=== PATIENT | female | born 1950 | race Caucasian/White ===

== ENCOUNTER → 2017-03-06 | Outpatient (CLI) | payer MEDICARE, OTHER ==
[2017-03-06 09:53] LABS: Bilirubin, Delta 0.5 mg/dL (0.0-0.2); Total Protein 7.2 g/dL (6.3-8.2)
[2017-03-06 12:50] LABS: Hemoglobin A1C 6.4 % (4.2-6.1)
== END | disposition home or self-care (01) ==
LOC: LABWHC1 08:59
PROVIDERS: ATTEND Internal Medicine
DX: E78.5 Hyperlipidemia, unspecified (principal)
CPT/HCPCS: 36415; 80076; 82947; 83036

== ENCOUNTER → 2017-03-14 | Outpatient (CLI) | payer MEDICARE, OTHER ==
[2017-03-15 14:36] LABS: Gliadin AB IgA, Deaminated 8 UNITS (<20); Gliadin AB IgG, Deaminated 2 UNITS (<20)
== END | disposition home or self-care (01) ==
LOC: LABWHC1 11:02
PROVIDERS: ATTEND Internal Medicine
DX: K52.9 Noninfective gastroenteritis and colitis, unspecified (principal)
CPT/HCPCS: 36415; 83516

== ENCOUNTER → 2017-06-21 | Outpatient (CLI) | payer MEDICARE, OTHER ==
[2017-06-21 11:29] LABS: Basophils # (A) 0.1 k/uL (0-0.2); Basophils % (A) 1 %; CH 30.1; CHCM 35.1; Eosinophils # (A) 0.2 k/uL (0-0.7); Eosinophils % (A) 2 %; HDW 2.97; HGB 13.8 gm/dL (11.4-16.0); Luc % (Auto) 1; Lymphocytes % (A) 25 %; MCH 28.9 pg (25.0-35.0); MCHC 33.5 g/dL (31.0-37.0); MCV 86.3 fL (80.0-100.0); Mean Platelet Volume 7.1; Monocytes # (A) 0.6 k/uL (0-1.0); Monocytes % (A) 5 %; Neutrophils # (A) 8.1 k/uL (1.3-7.7); Neutrophils % (A) 67 %; RBC 4.76 m/uL (3.80-5.40); RDW 14.6 % (11.5-15.5); WBC 12.1 k/uL (3.8-10.6); WBC (Perox) 11.52
[2017-06-21 11:55] LABS: Calcium 9.7 mg/dL (8.4-10.2); Potassium 3.9 mmol/L (3.5-5.1); Total Bilirubin 0.9 mg/dL (0.2-1.3)
[2017-06-21 12:44] LABS: Hemoglobin A1C 6.6 % (4.2-6.1)
== END | disposition home or self-care (01) ==
LOC: LABWHC1 11:08
PROVIDERS: ATTEND Family Medicine
DX: I10 Essential (primary) hypertension (principal); E11.9 Type 2 diabetes mellitus without complications; Z79.899 Other long term (current) drug therapy
CPT/HCPCS: 36415; 80053; 80061; 83036; 85025

== ENCOUNTER → 2017-10-18 | Outpatient (CLI) | payer MEDICARE, OTHER ==
--- NOTE | 2017-10-19 11:04 | MM ---
Reason for exam: screening (asymptomatic). Last mammogram was performed 3 years and 9 months ago. History: Patient is postmenopausal. Family history of breast cancer in grandmother. Physical Findings: A clinical breast exam by your physician is recommended on an annual basis and results should be correlated with mammographic findings. MG 3D Screening Mammo W/Cad Bilateral CC and MLO view(s) were taken. Prior study comparison: January 20, 2014, mammogram. There are scattered fibroglandular densities. There is chronic nodularity bilaterally. No significant changes when compared with prior studies. ASSESSMENT: Negative, BI-RAD 1 RECOMMENDATION: Routine screening mammogram of both breasts in 1 year.
== END | disposition home or self-care (01) ==
LOC: RADMAMWWP 13:05
PROVIDERS: ATTEND Family Medicine
DX: Z12.31 Encounter for screening mammogram for malignant neoplasm of breast (principal)
CPT/HCPCS: 77063; 77067

== ENCOUNTER → 2017-11-27 | Outpatient (CLI) | payer MEDICARE, OTHER ==
--- NOTE | 2017-11-27 11:02 | XR ---
EXAMINATION TYPE: XR chest 2V DATE OF EXAM: 11/27/2017 COMPARISON: 07/10/2015 HISTORY: 67-year-old female with cough TECHNIQUE: Frontal and lateral views FINDINGS: The cardiomediastinal silhouette, aorta, and pulmonary vasculature are within normal limits. Lungs an d pleural spaces are clear. Mild endplate spondylosis throughout the thoracic spine. Prior distal cla vicle resection on the left, stable. IMPRESSION: No acute cardiopulmonary process.
== END | disposition home or self-care (01) ==
LOC: RADXRMAIN 10:32
PROVIDERS: ATTEND Family Medicine
DX: R05 Cough (principal)
CPT/HCPCS: 71046

== ENCOUNTER → 2018-01-14 | Outpatient (CLI) | payer MEDICARE, OTHER ==
--- NOTE | 2018-01-14 16:26 | CT ---
EXAMINATION TYPE: CT chest wo con DATE OF EXAM: 01/14/2018 COMPARISON: Chest x-ray November 27, 2017 HISTORY: Sob x multiple months. Chronic bronchitis per order. CT DLP: 766 mGycm. Automated Exposure Control for Dose Reduction was Utilized. TECHNIQUE: CT scan of the thorax is performed without IV contrast. FINDINGS: LUNGS: The lungs are grossly clear, there is no concerning parenchymal mass or nodule identified. T here is no pleural effusion or pneumothorax seen. The tracheobronchial tree is patent. MEDIASTINUM: Lack of IV contrast is noted to limit evaluation for mediastinal and especially hilar ad enopathy. There are no definitive greater than 1 cm hilar or mediastinal lymph nodes. No cardiomega ly or pericardial effusion is seen. There is moderate coronary artery calcification is seen which is noted marker for coronary artery disease. OTHER: Cholecystectomy clips are present. Slight scoliotic curvature with moderate multilevel spurrin g in thoracic spine is noted. IMPRESSION: No significant acute or chronic pulmonary process.
== END | disposition home or self-care (01) ==
LOC: RADCTMAIN 15:58
PROVIDERS: ATTEND Family Medicine
DX: J42 Unspecified chronic bronchitis (principal)
CPT/HCPCS: 71250

== ENCOUNTER → 2018-01-28 | Outpatient (CLI) | payer MEDICARE, OTHER ==
[~2018-01-28] MED LIST: REGADENOSON 0.4 MG/5 ML SYRINGE IV ONE
--- NOTE | 2018-01-28 10:50 | EST ---
EXERCISE STRESS DATE OF SERVICE: January 28, 2018 PERFORMING PHYSICIAN: Ari Lara M.D., interventional radiologist. PROCEDURE PERFORMED: Lexiscan EKG of Lexiscan Cardiolite. AGE: 67 SEX: Female HT: 64 inches WT: 211 pounds PROTOCOL: Lexiscan Cardiolite HEART RATE REST: 78 BLOOD PRESSURE REST: 132/73 MAXIMUM HEART RATE ACHIEVED: 104 MAXIMUM BLOOD PRESSURE: 145/77 85% MPHR: 128 100% MPHR: 152 INDICATIONS: Abnormal EKG. STRESS DATA: Pretesting physical examination showed a heart rate of 78, pressure is 132/73 mmHg. Baseline EKG revealed sinus mechanism with RBBB. 0.4 mg of Lexiscan was given to the patient over 15 seconds per protocol. The max heart rate was 102 beats per minute and maximum pressure was 145/77 mmHg. Clinically the patient developed headache without any chest pain or discomfort and the EKG did not show any significant ST or T-wave abnormalities consistent with ischemia. CONCLUSION: 1. Nondiagnostic stress testing in response to Lexiscan. 2. Please follow up on the Cardiolite portion on separate report. MMODL / IJN: [id number] /
--- NOTE | 2018-01-28 11:34 | NM ---
EXAMINATION TYPE: NM stress lexiscan cardiolite DATE OF EXAM: 01/28/2018 COMPARISON: CT chest January 14, 2018 HISTORY: Coronary calcification, abnormal CT. History of hypertension, hypercholesteremia, diabetes, and family history of heart attack presents with abnormal EKG and difficulty breathing TECHNIQUE: After the intravenous administration of 9.97 mCi Tc 99m Sestamibi - Cardiolite resting SP ECT images acquired 54 minutes post injection. The patient received 0.4mg Lexiscan, 24.9 mCi Tc 99m Sestamibi - Stress images obtained [address] injection FINDINGS: Review of stress and rest SPECT images demonstrates no distinct perfusion abnormality. Gated analysi s shows normal wall motion with an estimated left ventricular ejection fraction of 64 %. IMPRESSION: No scintigraphic evidence for reversible ischemia.
== END ==
LOC: RADNMMAIN 08:06
PROVIDERS: ATTEND Family Medicine
DX: I25.84 Coronary atherosclerosis due to calcified coronary lesion (principal)
CPT/HCPCS: 93017; 78452; A9500; J2785

== ENCOUNTER → 2018-04-29 | Outpatient (CLI) | payer MEDICARE, OTHER ==
--- NOTE | 2018-04-29 15:15 | CT ---
EXAMINATION TYPE: CT cervical spine wo con DATE OF EXAM: 04/29/2018 COMPARISON: NONE HISTORY: Right side neck pain with bilateral arm pain CT DLP: 523.7 mGycm. Automated Exposure Control for Dose Reduction was Utilized. TECHNIQUE: CT scan of the cervical spine is obtained without contrast, axial images are obtained, sa gittal and coronal reformatted images are also reviewed. FINDINGS: Cervical spine is visualized in its entirety from C1 through upper thoracic levels, demonst rates satisfactory alignment without evidence of acute fracture or dislocation. Prevertebral soft ti ssue appears within normal limits. The C1-C2 articulation is within normal limits on the coronal sia ges. Vertebral body heights are maintained. There is mild disc space narrowing with calcified the C4-C5 le isabella. There is moderate disc space narrowing with mild to moderate anterior spurring C6-C7 level. Ther e is mild disc space narrowing C7-T1 level. Spinal canal is grossly preserved. Review of axial images shows uncovertebral facet degenerative changes right C2-C3 level without signi ficant neural foraminal narrowing. There is uncovertebral facet degenerative changes C3-C4 level with out significant neural foraminal narrowing. No large somewhat small in size . Visualized lung apices are clear. IMPRESSION: Findings as detailed above.
== END | disposition home or self-care (01) ==
LOC: RADCTMAIN 14:27
PROVIDERS: ATTEND Family Medicine
DX: M48.02 Spinal stenosis, cervical region (principal); M47.812 Spondylosis without myelopathy or radiculopathy, cervical region
CPT/HCPCS: 72125

== ENCOUNTER → 2018-07-24 | Outpatient (CLI) | payer MEDICARE, OTHER ==
--- NOTE | 2018-07-24 16:28 | XR ---
EXAMINATION TYPE: XR lumbosacral spine min 4V DATE OF EXAM: 07/24/2018 CLINICAL HISTORY: Chronic back pain TECHNIQUE: Frontal, lateral, and oblique images of the lumbar spine are obtained. COMPARISON: None FINDINGS: There are 5 lumbar type vertebral bodies identified. Mild multilevel degenerative changes of the lumbar spine are seen has multilevel facet arthropathy, endplate sclerosis and anterior osteo phytes. This results in at least mild bilateral neural foraminal narrowing at L4-L5. The lumbar spine shows satisfactory alignment without evidence of acute fracture or dislocation. Vertebral body heigh ts and disk space heights are within normal limits. Mild atherosclerosis is incidentally noted of the abdominal aorta. The overlying soft tissue appears unremarkable. IMPRESSION: No acute fracture or malalignment is seen in the lumbar spine. Mild multilevel degenerat sheryl change of the lumbar spine resulting in at least mild bilateral neural foraminal narrowing at L4- L5.
== END ==
LOC: RADXRMAIN 13:22
PROVIDERS: ATTEND Family Medicine
DX: M99.73 Connective tissue and disc stenosis of intervertebral foramina of lumbar region (principal); M47.816 Spondylosis without myelopathy or radiculopathy, lumbar region
CPT/HCPCS: 72110

== ENCOUNTER → 2018-08-13 | Outpatient (CLI) | payer MEDICARE, OTHER ==
[2018-08-13 13:45] LABS: Potassium 4.3 mmol/L (3.5-5.1)
--- NOTE | 2018-08-13 14:38 | XR ---
EXAMINATION TYPE: XR chest 2V DATE OF EXAM: 08/13/2018 COMPARISON: 11/27/2017 HISTORY: Dyspnea and cough TECHNIQUE: Frontal and lateral views of the chest are obtained. FINDINGS: There is no focal air space opacity, pleural effusion, or pneumothorax seen. The cardiac silhouette size is within normal limits. The osseous structures are intact. IMPRESSION: No acute cardiopulmonary process.
== END | disposition home or self-care (01) ==
LOC: RADXRMAIN 12:20
PROVIDERS: ATTEND Family Medicine
DX: Z53.9 Procedure and treatment not carried out, unspecified reason (principal)
CPT/HCPCS: 71046; 80051; 82565; 84520; 85379

== ENCOUNTER 2018-08-15 12:00 | Inpatient (IN) | payer MEDICARE, OTHER ==
[2018-08-15 14:27] LABS: Basophils # (A) 0.1 k/uL (0-0.2); Basophils % (A) 0 %; Eosinophils # (A) 0.1 k/uL (0-0.7); Eosinophils % (A) 1 %; HCT 40.1 % (34.0-46.0); HGB 13.4 gm/dL (11.4-16.0); Lymphocytes # (A) 2.5 k/uL (1.0-4.8); Lymphocytes % (A) 14 %; MCH 28.6 pg (25.0-35.0); MCHC 33.4 g/dL (31.0-37.0); MCV 85.6 fL (80.0-100.0); Mean Platelet Volume 6.9; Monocytes # (A) 1.1 k/uL (0-1.0); Monocytes % (A) 6 %; Neutrophils # (A) 14.5 k/uL (1.3-7.7); Neutrophils % (A) 79 %; Platelet Count 371 k/uL (150-450); RBC 4.68 m/uL (3.80-5.40); RDW 13.2 % (11.5-15.5); WBC 18.4 k/uL (3.8-10.6)
[2018-08-15 14:36] LABS: Albumin 4.2 g/dL (3.5-5.0); Phosphorus 4.4 mg/dL (2.5-4.5); Potassium 3.8 mmol/L (3.5-5.1); Total Bilirubin 0.8 mg/dL (0.2-1.3); Total Protein 7.3 g/dL (6.3-8.2)
[2018-08-15] MEDS: SODIUM CHLORIDE 0.9% 1,000 ML IV SCH (15:29)
[2018-08-15 16:03] LABS: Appearance,Urine Cloudy (Clear); Bilirubin,Urine Negative (Negative); Blood,Urine Negative (Negative); Color,Urine Yellow; Glucose,Urine (UA) 1+ (Negative); Ketones,Urine Negative (Negative); Leukocyte Esterase,Urine Moderate (Negative); Mucus,Urine Rare /hpf; Nitrite,Urine Negative (Negative); PH, Urine 5.5 (5.0-8.0); Protein,Urine Trace (Negative); RBC,Urine 3 /hpf (0-5); Squamous Epithelial Cell,Urine 3 /hpf (0-4); Urobilinogen,Urine <2.0 mg/dL (<2.0); WBC,Urine 17 /hpf (0-5)
[2018-08-15 16:52] LABS: Glucose,Whole Blood 149 mg/dL (75-99)
[2018-08-15] MEDS: glipiZIDE 10 MG TAB PO SCH (17:03)
[2018-08-15 20:24] LABS: Glucose,Whole Blood 226 mg/dL (75-99)
[2018-08-15 20:56] LABS: Hemoglobin A1C 7.7 % (4.0-6.0)
[2018-08-15] MEDS: POTASSIUM CHLORIDE ER 20 MEQ TAB.ER PO SCH (21:18)
[2018-08-15] MEDS: ATENOLOL 25 MG TAB PO SCH (21:18)
--- NOTE | 2018-08-15 21:22 | XR ---
EXAMINATION TYPE: XR chest 2V DATE OF EXAM: 08/15/2018 COMPARISON: 08/13/2018 HISTORY: Short of breath TECHNIQUE: Frontal and lateral views of the chest are obtained. FINDINGS: Heart and mediastinum are normal. Lungs are clear. Diaphragm is normal. Bony thorax appear s normal. Pulmonary vascularity is normal. IMPRESSION: No active cardiopulmonary disease. No change.
[2018-08-15 23:45] LABS: Appearance,Urine Clear (Clear); Bacteria,Urine Rare /hpf; Bilirubin,Urine Negative (Negative); Blood,Urine Negative (Negative); Color,Urine Light Yellow; Glucose,Urine (UA) Negative (Negative); Ketones,Urine Negative (Negative); Leukocyte Esterase,Urine Moderate (Negative); Mucus,Urine Rare /hpf; Nitrite,Urine Negative (Negative); Protein,Urine Negative (Negative); RBC,Urine 3 /hpf (0-5); Squamous Epithelial Cell,Urine 2 /hpf (0-4); Urobilinogen,Urine <2.0 mg/dL (<2.0)
[2018-08-16] MEDS: LEVOTHYROXINE 125 MCG TAB PO SCH (06:00)
[2018-08-16] MEDS: SODIUM CHLORIDE 0.9% 1,000 ML IV SCH ×3 (06:01→21:56)
[2018-08-16 07:23] LABS: Glucose,Whole Blood 134 mg/dL (75-99)
[2018-08-16] MEDS: VILANTER INHALATION SCH (07:29)
[2018-08-16] MEDS: FLUTICASONE INHALATION SCH (07:29)
[2018-08-16] MEDS: UMECLIDIN INHALATION SCH (07:29)
[2018-08-16] MEDS: ASPIRIN 81 MG PO SCH (07:39)
[2018-08-16] MEDS: ATENOLOL 25 MG TAB PO SCH ×2 (07:39→21:56)
[2018-08-16] MEDS: glipiZIDE 10 MG TAB PO SCH ×2 (07:39→17:50)
[2018-08-16] MEDS: ATORVASTATIN 40 MG TAB PO SCH (07:39)
[2018-08-16] MEDS: POTASSIUM CHLORIDE ER 20 MEQ TAB.ER PO SCH ×2 (07:40→21:56)
[2018-08-16] MEDS: CLOTRIMAZOLE 1% CREAM 15 GM TUBE TOPICAL SCH (07:40)
[2018-08-16 08:31] LABS: Basophils # (A) 0.1 k/uL (0-0.2); Basophils % (A) 0 %; Eosinophils # (A) 0.1 k/uL (0-0.7); Eosinophils % (A) 1 %; HCT 33.5 % (34.0-46.0); Lymphocytes # (A) 2.8 k/uL (1.0-4.8); Lymphocytes % (A) 20 %; MCHC 32.8 g/dL (31.0-37.0); MCV 85.3 fL (80.0-100.0); Mean Platelet Volume 6.9; Monocytes # (A) 0.8 k/uL (0-1.0); Monocytes % (A) 5 %; Neutrophils # (A) 10.5 k/uL (1.3-7.7); Neutrophils % (A) 73 %; Platelet Count 298 k/uL (150-450); RBC 3.93 m/uL (3.80-5.40); RDW 12.9 % (11.5-15.5); WBC 14.4 k/uL (3.8-10.6)
[2018-08-16 08:58] LABS: Albumin 3.2 g/dL (3.5-5.0); Calcium 9.1 mg/dL (8.4-10.2); Potassium 3.5 mmol/L (3.5-5.1); Total Bilirubin 0.6 mg/dL (0.2-1.3)
[2018-08-16] MEDS ORDERED: TRIAMTERENE-HCTZ 37.5-25MG 1 EACH CAP PO SCH (09:00)
[2018-08-16] MEDS ORDERED: LOSARTAN 50 MG TAB PO SCH (09:00)
--- NOTE | 2018-08-16 10:05 | P.NPCON ---
History of Present Illness - Reason for Consult acute renal failure - History of Present Illness Reason for consultation: Acute kidney injury History of present illness: Patient is a 68-year-old female seen in renal consultation for acute kidney injury. Patient had blood work done on 08/13/2018 which revealed creatinine of 4.48. She was advised by her primary care physician to go to the hospital for further care. Creatinine yesterday was 4.09 and is down to 3.62 today. Creatinine is June 2017 was 1.36 and one in July 2015. Patient denies any prior history of kidney disease. She does have history of diabetes mellitus and takes metformin. She denies use of NSAIDs. She does have history of hypertension and takes lisinopril. Blood pressure this admission has been pretty well controlled. Systolic blood pressure has been in the range of 108- 124. She admits to good urine output. No hematuria or dysuria. Patient states her mother was on dialysis due to diabetic kidney disease. States she's been feeling nauseous the last few days. Oral intake is fair. Denies vomiting. Patient states she does have loose bowel movements which is regular for her due to history of ulcerative colitis. Vital signs are stable. General: The patient appeared well nourished and normally developed. HEENT: Head exam is unremarkable. Neck is without jugular venous distension. LUNGS: Lungs are clear to auscultation and percussion. Breath sounds decreased. HEART: Rate and Rhythm are regular. First and second heart sounds normal. No murmurs, rubs or gallops. ABDOMEN: Abdominal exam reveals normal bowel sounds. Non-tender and non- distended. No evidence of peritonitis. EXTREMITITES: No clubbing, cyanosis, or edema. Past Medical History Past Medical History: Diabetes Mellitus, Hyperlipidemia, Hypertension, Thyroid Disorder Additional Past Medical History / Comment(s): Pt states for past month she has not felt well- multiple problems-vertigo, back pain, R shoulder pain and decreased ROM, voice change. Other hx: NIDDM type II-recently taken off metformin and stayed on glipizide, neuropathy bilateral feet, ulcerative colitis , frequent diarrhea, past R rotator cuff tear, occasional back pain with sciatica. History of Any Multi-Drug Resistant Organisms: None Reported Additional Past Surgical History / Comment(s): Lap fidel, R wrist ganglion cystectomy, L shoulder bone removed, colonoscopies. Past Anesthesia/Blood Transfusion Reactions: No Reported Reaction, Motion Sickness Smoking Status: Never smoker - Past Family History Mother Family Medical History: Renal Disease Additional Family Medical History / Comment(s): Mother of renal failure. Father Family Medical History: Myocardial Infarction (ME) Additional Family Medical History / Comment(s): Father of a ME at the age of 75 yrs. He had his first ME about age 65yrs. Medications and Allergies Home Medications Medication Instructions Recorded Confirmed Type Aspirin 81 mg PO DAILY 07/10/15 08/15/18 History Levothyroxine Sodium [Synthroid] 125 mcg PO DAILY 07/10/15 08/15/18 History Losartan Potassium [Cozaar] 100 mg PO DAILY 07/10/15 08/15/18 History Potassium Chloride [Klor-Con 20] 20 meq PO BID 07/10/15 08/15/18 History Triamterene-Hctz 37.5-25Mg 1 cap PO DAILY 07/10/15 08/15/18 History [Dyazide 37.5-25 Capsule] glipiZIDE [Glipizide] 10 mg PO BID-W/MEALS 07/10/15 08/15/18 History metFORMIN HCL [metFORMIN HCL ER] 1,000 mg PO BID 07/10/15 08/15/18 History Atenolol [Tenormin] 25 mg PO BID 08/15/18 08/15/18 History Atorvastatin [Lipitor] 40 mg PO DAILY 08/15/18 08/15/18 History Clotrimazole [Lotrimin AF] 1 applic TOPICAL DAILY MDD UNDER 08/15/18 08/15/18 History BREAST Fluticasone/Umeclidin/Vilanter 1 puff INHALATION RT-DAILY 08/15/18 08/15/18 History [Trelegy Ellipta 100-62.5-25] Meclizine [Antivert] 12.5 mg PO PRN 08/15/18 History Mirabegron [Myrbetriq] 50 mg PO Q48H 08/15/18 08/15/18 History Allergies Allergy/AdvReac Type Severity Reaction Status Date / Time sulfamethoxazole Allergy Unknown Verified 08/15/18 13:45 [From Bactrim] trimethoprim [From Bactrim] Allergy Unknown Verified 08/15/18 13:45 ibuprofen [From Motrin] AdvReac Swelling Verified 08/15/18 13:45 Physical Exam Vitals: Vital Signs Temp Pulse Resp BP Pulse Ox 08/16/18 05:49 97.9 F 83 18 114/72 98 08/15/18 22:52 98.9 F 99 18 108/57 97 08/15/18 21:02 124/65 08/15/18 17:30 14 08/15/18 14:31 97.5 F L 87 16 123/65 98 08/15/18 13:00 97.9 F 98 16 109/71 97 Intake and Output 08/15/18 08/16/18 08/16/18 22:59 06:59 14:59 Other: Voiding Method Toilet Toilet # Voids 2 3 Results - Lab Results Most recent lab results Calcium 9.1 mg/dL (8.4-10.2) 08/16/18 07:54 Phosphorus 4.4 mg/dL (2.5-4.5) 08/15/18 14:13 08/16/18 07:54 08/16/18 07:54 Assessment and Plan Plan: Assessment: 1. Nonoliguric acute kidney injury mostly prerenal due to hypovolemia from diuresis and further worsened with the use of losartan. Patient was also taking metformin. Renal function is improving with creatinine down to 3.62 today. Urinalysis is quite benign. 2. Diabetes. 3. Benign hypertension. Controlled. 4. Metabolic acidosis secondary to acute kidney injury and IV fluids. Plan: Maintain normal saline at 100 mL an hour. Check renal ultrasound. Avoid nephrotoxins. Continue to hold diuretics, metformin and losartan for now. Encouraged oral intake. Repeat electrolytes in the morning. Add oral sodium bicarbonate. Thank you for the consultation. I will continue to follow the patient with you during her hospital stay.
--- NOTE | 2018-08-16 10:29 | US ---
EXAMINATION TYPE: US abdomen complete DATE OF EXAM: 08/16/2018 COMPARISON: NONE CLINICAL HISTORY: elevated kidney labs . layo, cholecystectomy EXAM MEASUREMENTS: Liver Length: 15.1 cm Gallbladder Wall: Surgically absent CBD: 0.5 cm Spleen: 12.6 cm Right Kidney: 11.9 x 5.9 x 5.2 cm Left Kidney: 10.8 x 4.4 x 5.4 cm *bowel gas obscures imaging Pancreas: limited views appear wnl Liver: intercostal views, difficult to penetrate Gallbladder: Surgically absent Evidence for sonographic Hernandez's sign: no CBD: wnl Spleen: wnl Right Kidney: wnl Left Kidney: wnl Upper IVC: wnl Abd Aorta: limited views appear wnl The intrahepatic portion of the IVC and proximal abdominal aorta are within normal limits. Common bile duct is unremarkable. The visualized portions of the pancreas are homogenous. The spleen is un remarkable. Kidneys are symmetric and free of hydronephrosis. No renal lesions are seen. IMPRESSION: 1. Fatty hepatic infiltration.
[2018-08-16 10:48] LABS: T4, Free (Free Thyroxine) 2.01 ng/dL (0.78-2.19)
[2018-08-16 10:55] VITALS: BMI 34.1
[2018-08-16 12:39] LABS: Glucose,Whole Blood 77 mg/dL (75-99)
[2018-08-16 17:33] LABS: Glucose,Whole Blood 123 mg/dL (75-99)
--- NOTE | 2018-08-16 20:01 | HP ---
HISTORY AND PHYSICAL SUBJECTIVE: A 68-year-old white female admitted with weakness, lethargy, worsening renal function with acute renal failure. HISTORY OF PRESENT ILLNESS: She is diabetic, obese, diabetic, hypertension, admitted with renal failure with creatinine going from 2 up to mid 4s in a 1 month period of time. She was admitted to the hospital due to acute renal failure. She has been weak, lethargic with muscle aches and myalgias. HOME MEDICATIONS: Takes aspirin 81 mg daily, Tenormin 25 b.i.d., Lipitor 40 daily. She is on Rocephin for UTI a 1000 daily. Lotrimin topically daily, Trilogy Ellipta 1 puff daily, Glucotrol 10 mg b.i.d., Synthroid 125 mcg daily, Myrbetriq 50 mg q.48 hours. K-Dur 20 mEq b.i.d. REVIEW OF SYSTEMS: Fourteen point review of systems negative except for mentioned in HPI. Creatinine was 4.4 on admission. White count of 14.4. CARDIOVASCULAR: S1, S2. LUNGS: Scattered wheeze. HEMATOLOGY: Negative Homans. GI: Soft. PSYCH: Fair mood and affect. ASSESSMENT: 1. Acute renal failure. 2. Diabetes mellitus. 3. Hypertension. 4. Obesity. 5. Dehydration secondary to possible ulcerative colitis. 6. Hypothyroidism. 7. Nonoliguric acute kidney injury. Diaphoresis, losartan, metformin discontinued. Creatinine is improved with fluids. Ultrasound. Please see added oral sodium bicarbonate. Please see further orders. MMODL / IJN: [id number] /
[2018-08-16 21:28] LABS: Glucose,Whole Blood 183 mg/dL (75-99)
[2018-08-17] MEDS: SODIUM CHLORIDE 0.9% 1,000 ML IV SCH ×2 (05:30→18:35)
[2018-08-17] MEDS: LEVOTHYROXINE 125 MCG TAB PO SCH (05:31)
[2018-08-17 07:08] LABS: Glucose,Whole Blood 110 mg/dL (75-99)
--- NOTE | 2018-08-17 08:13 | P.PN ---
Subjective Patient is seen in follow-up for acute kidney injury. Patient's creatinine was elevated at 4.45 as of August 13 and she was sent to the hospital for acute kidney injury. She is currently maintained on IV fluids. Creatinine was down to 3.6 to as of yesterday. She's feels well today. Oral intake is good. No vomiting or diarrhea. Admits to good urine output. Vital signs are stable. General: The patient appeared well nourished and normally developed. HEENT: Head exam is unremarkable. Neck is without jugular venous distension. LUNGS: Lungs are clear to auscultation and percussion. Breath sounds decreased. HEART: Rate and Rhythm are regular. First and second heart sounds normal. No murmurs, rubs or gallops. ABDOMEN: Abdominal exam reveals normal bowel sounds. Non-tender and non- distended. No evidence of peritonitis. EXTREMITITES: No clubbing, cyanosis, or edema. Objective - Vital Signs Vital signs: Vital Signs Temp 98.8 F 08/17/18 06:15 Pulse 88 08/17/18 06:15 Resp 20 08/17/18 06:15 BP 118/59 08/17/18 06:15 Pulse Ox 95 08/17/18 06:15 Intake & Output 08/16/18 08/17/18 08/17/18 18:59 06:59 18:59 Intake Total 100 Balance 100 Weight 90.265 kg Intake: Oral 100 Other: Voiding Method Toilet Toilet # Voids 2 1 - Labs CBC & Chem 7: 08/16/18 07:54 08/16/18 07:54 Labs: Abnormal Lab Results - Last 24 Hours (Table) 08/16/18 08/16/18 08/16/18 Range/Units 07:54 07:54 17:16 WBC 14.4 H (3.8-10.6) k/uL Hgb 11.0 L (11.4-16.0) gm/dL Hct 33.5 L (34.0-46.0) % Neutrophils # 10.5 H (1.3-7.7) k/uL Chloride 111 H (98-107) mmol/L Carbon Dioxide 18 L (22-30) mmol/L BUN 62 H (7-17) mg/dL Creatinine 3.62 H (0.52-1.04) mg/dL Glucose 131 H (74-99) mg/dL POC Glucose (mg/dL) 123 H (75-99) mg/dL Total Protein 6.0 L (6.3-8.2) g/dL Albumin 3.2 L (3.5-5.0) g/dL TSH 0.371 L (0.465-4.680) mIU/L 08/16/18 08/17/18 Range/Units 21:24 07:04 WBC (3.8-10.6) k/uL Hgb (11.4-16.0) gm/dL Hct (34.0-46.0) % Neutrophils # (1.3-7.7) k/uL Chloride (98-107) mmol/L Carbon Dioxide (22-30) mmol/L BUN (7-17) mg/dL Creatinine (0.52-1.04) mg/dL Glucose (74-99) mg/dL POC Glucose (mg/dL) 183 H 110 H (75-99) mg/dL Total Protein (6.3-8.2) g/dL Albumin (3.5-5.0) g/dL TSH (0.465-4.680) mIU/L Microbiology - Last 24 Hours (Table) 08/15/18 13:48 Urine Culture - Final Urine,Voided Assessment and Plan Plan: Assessment: 1. Nonoliguric acute kidney injury mostly prerenal due to hypovolemia from diuresis and further worsened with the use of losartan. Patient was also taking metformin. Renal function is improving with creatinine down to 3.62 as of yesterday. Urinalysis is quite benign. No evidence of hydronephrosis noted on renal ultrasound. 2. Diabetes. 3. Benign hypertension. Controlled. 4. Metabolic acidosis secondary to acute kidney injury and IV fluids. Plan: Maintain normal saline at 100 mL an hour. Avoid nephrotoxins. Continue to hold diuretics, metformin and losartan for now. Encouraged oral intake. Repeat electrolytes in the morning. Maintain oral sodium bicarbonate.
[2018-08-17] MEDS ORDERED: CYCLOBENZAPRINE 5 MG TAB PO STA (08:21)
[2018-08-17] MEDS: ATORVASTATIN 40 MG TAB PO SCH (08:31)
[2018-08-17] MEDS: ASPIRIN 81 MG PO SCH (08:31)
[2018-08-17] MEDS: ATENOLOL 25 MG TAB PO SCH ×2 (08:31→21:22)
[2018-08-17] MEDS: POTASSIUM CHLORIDE ER 20 MEQ TAB.ER PO SCH ×2 (08:31→21:22)
[2018-08-17] MEDS: glipiZIDE 10 MG TAB PO SCH ×2 (08:31→18:34)
[2018-08-17] MEDS: Mirabegron [Myrbetriq] 50 MG PO SCH (08:32)
[2018-08-17] MEDS ORDERED: SODIUM BICARBONATE TAB 650 MG TAB PO SCH (09:00)
[2018-08-17 10:34] LABS: Basophils % (A) 0 %; Eosinophils # (A) 0.2 k/uL (0-0.7); Eosinophils % (A) 2 %; HCT 32.6 % (34.0-46.0); HGB 10.7 gm/dL (11.4-16.0); Lymphocytes # (A) 1.7 k/uL (1.0-4.8); Lymphocytes % (A) 17 %; MCH 28.5 pg (25.0-35.0); MCHC 32.7 g/dL (31.0-37.0); MCV 87.2 fL (80.0-100.0); Mean Platelet Volume 7.2; Monocytes # (A) 0.6 k/uL (0-1.0); Monocytes % (A) 5 %; Neutrophils # (A) 7.5 k/uL (1.3-7.7); Neutrophils % (A) 75 %; Platelet Count 237 k/uL (150-450); RBC 3.74 m/uL (3.80-5.40); RDW 13.3 % (11.5-15.5)
[2018-08-17 10:42] LABS: Albumin 3.3 g/dL (3.5-5.0); Magnesium 1.4 mg/dL (1.6-2.3); Potassium 3.7 mmol/L (3.5-5.1); Total Bilirubin 0.4 mg/dL (0.2-1.3); Total Protein 5.9 g/dL (6.3-8.2)
[2018-08-17 12:51] LABS: Glucose,Whole Blood 124 mg/dL (75-99)
--- NOTE | 2018-08-17 16:37 | PN ---
PROGRESS NOTE SUBJECTIVE: This patient is a 68-year-old white female who comes in with UTI, urosepsis, and acute kidney injury. Her BUN is down to 50, creatinine is down to 2.89. She is feeling better. She is more hydrated. She has been started on sodium bicarbonate for renal failure. Continues to improve clinically. She is up sitting in a chair. CARDIOVASCULAR: S1, S2. LUNGS: Clear. GI: Soft. HEMATOLOGY: Negative Homans. ASSESSMENT: Acute kidney injury due to multiple sources, including urinary tract infection with sepsis and dehydration, prerenal renal failure. Sodium bicarbonate has been added. Nephrotoxic agents have been stopped. Will hold off on diabetic medicines for now and watch her. UA is negative at this time. Ultrasound was normal. Continue with normal saline for rehydration. Hold diuretics. Metformin will start. Encourage oral intake. Repeat electrolytes in the morning. Stay on sodium bicarbonate. Patient is improving greatly at this time. MMODL / IJN: [id number] /
[2018-08-17] MEDS: CLOTRIMAZOLE 1% CREAM 15 GM TUBE TOPICAL SCH (16:47)
[2018-08-17 17:39] LABS: Glucose,Whole Blood 130 mg/dL (75-99)
[2018-08-17] MEDS: UMECLIDIN INHALATION SCH (18:35)
[2018-08-17] MEDS: FLUTICASONE INHALATION SCH (18:35)
[2018-08-17] MEDS: VILANTER INHALATION SCH (18:35)
[2018-08-17 20:37] LABS: Glucose,Whole Blood 209 mg/dL (75-99)
[2018-08-17] MEDS: SODIUM BICARBONATE TAB 650 MG TAB PO SCH (21:22)
[2018-08-18] MEDS: SODIUM CHLORIDE 0.9% 1,000 ML IV SCH ×2 (03:45→12:27)
[2018-08-18] MEDS: LEVOTHYROXINE 125 MCG TAB PO SCH (06:16)
[2018-08-18 07:40] LABS: Glucose,Whole Blood 136 mg/dL (75-99)
[2018-08-18] MEDS: ATORVASTATIN 40 MG TAB PO SCH (07:55)
[2018-08-18] MEDS: glipiZIDE 10 MG TAB PO SCH ×2 (07:55→17:52)
[2018-08-18] MEDS: ATENOLOL 25 MG TAB PO SCH ×2 (07:56→21:39)
[2018-08-18] MEDS: SODIUM BICARBONATE TAB 650 MG TAB PO SCH ×2 (07:56→21:39)
[2018-08-18] MEDS: POTASSIUM CHLORIDE ER 20 MEQ TAB.ER PO SCH ×2 (07:56→21:39)
[2018-08-18] MEDS: ASPIRIN 81 MG PO SCH (07:56)
[2018-08-18] MEDS: CLOTRIMAZOLE 1% CREAM 15 GM TUBE TOPICAL SCH (07:57)
[2018-08-18 08:21] LABS: Basophils % (A) 0 %; Eosinophils # (A) 0.2 k/uL (0-0.7); Eosinophils % (A) 2 %; HGB 10.5 gm/dL (11.4-16.0); Lymphocytes # (A) 2.2 k/uL (1.0-4.8); Lymphocytes % (A) 21 %; MCH 28.4 pg (25.0-35.0); Mean Platelet Volume 6.9; Monocytes # (A) 0.6 k/uL (0-1.0); Monocytes % (A) 6 %; Neutrophils # (A) 7.5 k/uL (1.3-7.7); Neutrophils % (A) 70 %; Platelet Count 258 k/uL (150-450); RBC 3.71 m/uL (3.80-5.40); RDW 13.2 % (11.5-15.5); WBC 10.7 k/uL (3.8-10.6)
[2018-08-18 08:23] LABS: Albumin 3.2 g/dL (3.5-5.0); Calcium 8.9 mg/dL (8.4-10.2); Magnesium 1.3 mg/dL (1.6-2.3); Potassium 3.4 mmol/L (3.5-5.1); Total Bilirubin 0.5 mg/dL (0.2-1.3); Total Protein 5.7 g/dL (6.3-8.2)
[2018-08-18] MEDS ORDERED: POTASSIUM CHLORIDE ER 20 MEQ TAB.ER PO STA (08:25)
--- NOTE | 2018-08-18 08:29 | P.PN ---
Subjective Patient is seen in follow-up for acute kidney injury. Patient's creatinine was elevated at 4.45 as of August 13 and she was sent to the hospital for acute kidney injury. She is currently maintained on IV fluids. Creatinine is mildly improved today at 2.79. She's feels well today. Oral intake is good. No vomiting or diarrhea. Admits to good urine output. Vital signs are stable. General: The patient appeared well nourished and normally developed. HEENT: Head exam is unremarkable. Neck is without jugular venous distension. LUNGS: Lungs are clear to auscultation and percussion. Breath sounds decreased. HEART: Rate and Rhythm are regular. First and second heart sounds normal. No murmurs, rubs or gallops. ABDOMEN: Abdominal exam reveals normal bowel sounds. Non-tender and non- distended. No evidence of peritonitis. EXTREMITITES: No clubbing, cyanosis, or edema. Objective - Vital Signs Vital signs: Vital Signs Temp 97.8 F 08/18/18 06:00 Pulse 81 08/18/18 06:00 Resp 20 08/18/18 06:00 BP 128/77 08/18/18 06:00 Pulse Ox 95 08/18/18 06:00 Intake & Output 08/17/18 08/18/18 08/18/18 18:59 06:59 18:59 Intake Total 100 300 Balance 100 300 Intake: Intake, IV Titration 100 Amount cefTRIAXone 1,000 mg In 100 Sodium Chloride 0.9% 50 ml @ 100 mls/hr IVPB Q24HR [facility] Rx#:[id number] Oral 300 Other: Voiding Method Toilet # Voids 1 - Labs CBC & Chem 7: 08/17/18 10:01 08/18/18 07:46 Labs: Abnormal Lab Results - Last 24 Hours (Table) 08/17/18 08/17/18 08/17/18 Range/Units 10:01 10:01 12:47 RBC 3.74 L (3.80-5.40) m/uL Hgb 10.7 L (11.4-16.0) gm/dL Hct 32.6 L (34.0-46.0) % Potassium (3.5-5.1) mmol/L Chloride 112 H (98-107) mmol/L Carbon Dioxide 17 L (22-30) mmol/L BUN 52 H (7-17) mg/dL Creatinine 2.89 H (0.52-1.04) mg/dL Glucose 262 H (74-99) mg/dL POC Glucose (mg/dL) 124 H (75-99) mg/dL Magnesium 1.4 L (1.6-2.3) mg/dL Total Protein 5.9 L (6.3-8.2) g/dL Albumin 3.3 L (3.5-5.0) g/dL 08/17/18 08/17/18 08/18/18 Range/Units 17:37 20:32 07:39 RBC (3.80-5.40) m/uL Hgb (11.4-16.0) gm/dL Hct (34.0-46.0) % Potassium (3.5-5.1) mmol/L Chloride (98-107) mmol/L Carbon Dioxide (22-30) mmol/L BUN (7-17) mg/dL Creatinine (0.52-1.04) mg/dL Glucose (74-99) mg/dL POC Glucose (mg/dL) 130 H 209 H 136 H (75-99) mg/dL Magnesium (1.6-2.3) mg/dL Total Protein (6.3-8.2) g/dL Albumin (3.5-5.0) g/dL 08/18/18 Range/Units 07:46 RBC (3.80-5.40) m/uL Hgb (11.4-16.0) gm/dL Hct (34.0-46.0) % Potassium 3.4 L (3.5-5.1) mmol/L Chloride 113 H (98-107) mmol/L Carbon Dioxide 21 L (22-30) mmol/L BUN 45 H (7-17) mg/dL Creatinine 2.79 H (0.52-1.04) mg/dL Glucose 125 H (74-99) mg/dL POC Glucose (mg/dL) (75-99) mg/dL Magnesium 1.3 L (1.6-2.3) mg/dL Total Protein 5.7 L (6.3-8.2) g/dL Albumin 3.2 L (3.5-5.0) g/dL Microbiology - Last 24 Hours (Table) 08/15/18 13:48 Urine Culture - Final Urine,Voided Assessment and Plan Plan: Assessment: 1. Nonoliguric acute kidney injury mostly prerenal due to hypovolemia from diuresis and further worsened with the use of losartan. Patient was also taking metformin. Renal function is improving with creatinine down to 2.79 today. Urinalysis is quite benign. No evidence of hydronephrosis noted on renal ultrasound. 2. Diabetes. 3. Benign hypertension. Controlled. 4. Metabolic acidosis secondary to acute kidney injury and IV fluids. Better. 5. Hypomagnesemia from poor oral intake. 6. Hypokalemia secondary to hypomagnesemia and intracellular shifting from bicarbonate. Plan: Maintain normal saline at 100 mL an hour. Avoid nephrotoxins. Continue to hold diuretics, metformin and losartan for now. Encouraged oral intake. Repeat electrolytes in the morning. Maintain oral sodium bicarbonate. Replace magnesium. 3 g IV today over 12 hours. Replace potassium. 40 mEq additional today.
[2018-08-18] MEDS: MAGNESIUM SULFATE-D5W PMX 1 GM in DEXTROSE/WATER 1 100ML.BAG IVPB SCH ×3 (09:12→15:37)
[2018-08-18] MEDS: VILANTER INHALATION SCH (09:15)
[2018-08-18] MEDS: FLUTICASONE INHALATION SCH (09:15)
[2018-08-18] MEDS: UMECLIDIN INHALATION SCH (09:15)
[2018-08-18 11:59] LABS: Glucose,Whole Blood 159 mg/dL (75-99)
[2018-08-18 17:33] LABS: Glucose,Whole Blood 178 mg/dL (75-99)
[2018-08-18 21:08] LABS: Glucose,Whole Blood 223 mg/dL (75-99)
[2018-08-18] MEDS: FAMOTIDINE 20 MG TAB PO SCH (21:39)
[2018-08-18] MEDS: HEPARIN SODIUM,PORCINE 5,000 UNIT/ML 1 ML VIAL SQ SCH (21:39)
--- NOTE | 2018-08-18 23:11 | PN ---
PROGRESS NOTE DATE OF SERVICE: 08/18/2018. HISTORY: She does not have any nausea or abdominal pain. She is starting to eat better. She feels better overall. PHYSICAL EXAMINATION: Blood pressure is 132/76, respiratory rate is 16, pulse rate 90, temperature 97.7 degrees Fahrenheit, O2 saturation on room air is 98%. HEENT is unremarkable. Chest is clear. Cardiovascular system is S1, S2. Abdomen is soft. There is no pedal edema. White count is 10.7, hemoglobin 10.5, sodium 144, potassium 3.4, chloride 113, bicarb 29, BUN 45, creatinine of 2.79, which is better than on admission. Creatinine of 4.09. Microbiological cultures have shown in the urine 10,0000 to 49,000 skin organoidal bella. IMPRESSION: 1. Acute renal failure with acute tubular necrosis. 2. Urinary tract infection. 3. Dehydration. Continue IV fluids. Supportive care. Continue to hold diuretics and metformin. Continue her on Rocephin at this time. Appreciate Nephrology input and intervention. GERARDO / JEMMA: [id number] /
[2018-08-19] MEDS: SODIUM CHLORIDE 0.9% 1,000 ML IV SCH ×3 (00:40→20:22)
[2018-08-19] MEDS: LEVOTHYROXINE 125 MCG TAB PO SCH (05:56)
[2018-08-19 07:42] LABS: Glucose,Whole Blood 135 mg/dL (75-99)
[2018-08-19] MEDS: UMECLIDIN INHALATION SCH ×2 (07:57→09:03)
[2018-08-19] MEDS: FLUTICASONE INHALATION SCH ×2 (07:57→09:03)
[2018-08-19] MEDS: VILANTER INHALATION SCH ×2 (07:57→09:03)
--- NOTE | 2018-08-19 08:36 | P.PN ---
Subjective Patient is seen in follow-up for acute kidney injury. Patient's creatinine was elevated at 4.45 as of August 13 and she was sent to the hospital for acute kidney injury. She is currently maintained on IV fluids. Creatinine was down to 2.79 as of yesterday. She's feels well today. Oral intake is good. No vomiting or diarrhea. Admits to good urine output. Vital signs are stable. General: The patient appeared well nourished and normally developed. HEENT: Head exam is unremarkable. Neck is without jugular venous distension. LUNGS: Lungs are clear to auscultation and percussion. Breath sounds decreased. HEART: Rate and Rhythm are regular. First and second heart sounds normal. No murmurs, rubs or gallops. ABDOMEN: Abdominal exam reveals normal bowel sounds. Non-tender and non- distended. No evidence of peritonitis. EXTREMITITES: No clubbing, cyanosis, or edema. Objective - Vital Signs Vital signs: Vital Signs Temp 96.1 F L 08/19/18 07:00 Pulse 74 08/19/18 07:00 Resp 16 08/19/18 07:00 BP 138/67 08/19/18 07:00 Pulse Ox 97 08/19/18 07:00 Intake & Output 08/18/18 08/19/18 08/19/18 18:59 06:59 18:59 Intake Total 900 Balance 900 Intake: Oral 900 Other: Voiding Method Toilet # Voids 3 1 - Labs CBC & Chem 7: 08/18/18 07:46 08/18/18 07:46 Labs: Abnormal Lab Results - Last 24 Hours (Table) 08/18/18 08/18/18 08/18/18 Range/Units 11:57 17:31 21:07 POC Glucose (mg/dL) 159 H 178 H 223 H (75-99) mg/dL 08/19/18 Range/Units 07:34 POC Glucose (mg/dL) 135 H (75-99) mg/dL Assessment and Plan Plan: Assessment: 1. Nonoliguric acute kidney injury mostly prerenal due to hypovolemia from diuresis and further worsened with the use of losartan. Patient was also taking metformin. Renal function is improving with creatinine down to 2.79 as of yesterday. Urinalysis is quite benign. No evidence of hydronephrosis noted on renal ultrasound. 2. Diabetes. 3. Benign hypertension. Controlled. 4. Metabolic acidosis secondary to acute kidney injury and IV fluids. Better. 5. Hypomagnesemia from poor oral intake. Status post replacement. 6. Hypokalemia secondary to hypomagnesemia and intracellular shifting from bicarbonate. Plan: Decreased rate of normal saline to 70 mL an hour. Avoid nephrotoxins. Continue to hold diuretics, metformin and losartan for now. Encouraged oral intake. Repeat electrolytes in the morning. Maintain oral sodium bicarbonate.
[2018-08-19] MEDS: glipiZIDE 10 MG TAB PO SCH ×2 (09:01→17:13)
[2018-08-19] MEDS: ATORVASTATIN 40 MG TAB PO SCH (09:01)
[2018-08-19] MEDS: ASPIRIN 81 MG PO SCH (09:01)
[2018-08-19] MEDS: ATENOLOL 25 MG TAB PO SCH ×2 (09:01→20:29)
[2018-08-19] MEDS: FAMOTIDINE 20 MG TAB PO SCH (09:01)
[2018-08-19] MEDS: CLOTRIMAZOLE 1% CREAM 15 GM TUBE TOPICAL SCH (09:02)
[2018-08-19] MEDS: Mirabegron [Myrbetriq] 50 MG PO SCH (09:04)
[2018-08-19] MEDS: SODIUM BICARBONATE TAB 650 MG TAB PO SCH ×2 (09:04→20:29)
[2018-08-19] MEDS: POTASSIUM CHLORIDE ER 20 MEQ TAB.ER PO SCH ×2 (09:04→20:29)
[2018-08-19] MEDS: HEPARIN SODIUM,PORCINE 5,000 UNIT/ML 1 ML VIAL SQ SCH ×2 (09:04→20:21)
[2018-08-19 09:46] LABS: Calcium 8.9 mg/dL (8.4-10.2); Magnesium 1.8 mg/dL (1.6-2.3); Potassium 3.6 mmol/L (3.5-5.1)
[2018-08-19 12:00] LABS: Glucose,Whole Blood 98 mg/dL (75-99)
[2018-08-19 17:04] LABS: Glucose,Whole Blood 101 mg/dL (75-99)
[2018-08-19 20:58] LABS: Glucose,Whole Blood 143 mg/dL (75-99)
--- NOTE | 2018-08-19 21:45 | PN ---
PROGRESS NOTE SUBJECTIVE: A 68-year-old white female with acute kidney injury and urinary tract infections, much improved at this time. Fluids elevated at 4.45, now is down to 2.43. Good urine output. She feels much better. CARDIOVASCULAR: S1, S2. Lungs clear. GI soft. Blood pressure 130/67, O2 97% on room air. , Pulse 70 to 74, temp 96.1. ASSESSMENT: 1. Acute kidney injury. Nonoliguric acute kidney injury. 2. Diabetes. 3. Hypertension. 4. Metabolic acidosis. 5. Hypomagnesemia. 6. Hypokalemia. Cut the IV fluids down. Hold diuretics, metformin, losartan. Recheck electrolytes. Continue on sodium bicarbonate. Possible discharge home in the next 24 to 48 hours. MMODL / IJN: [id number] /
[2018-08-19 23:04] VITALS: RESP 16
[2018-08-20] MEDS: LEVOTHYROXINE 125 MCG TAB PO SCH (06:31)
[2018-08-20] MEDS: VILANTER INHALATION SCH (06:59)
[2018-08-20] MEDS: FLUTICASONE INHALATION SCH (06:59)
[2018-08-20] MEDS: UMECLIDIN INHALATION SCH (06:59)
[2018-08-20 07:06] LABS: Glucose,Whole Blood 121 mg/dL (75-99)
[2018-08-20] MEDS: ATENOLOL 25 MG TAB PO SCH (07:28)
[2018-08-20] MEDS: glipiZIDE 10 MG TAB PO SCH (07:28)
[2018-08-20] MEDS: SODIUM BICARBONATE TAB 650 MG TAB PO SCH (07:28)
[2018-08-20] MEDS: POTASSIUM CHLORIDE ER 20 MEQ TAB.ER PO SCH (07:28)
[2018-08-20] MEDS: ATORVASTATIN 40 MG TAB PO SCH (07:28)
[2018-08-20] MEDS: ASPIRIN 81 MG PO SCH (07:28)
[2018-08-20] MEDS: HEPARIN SODIUM,PORCINE 5,000 UNIT/ML 1 ML VIAL SQ SCH (07:29)
[2018-08-20] MEDS: CLOTRIMAZOLE 1% CREAM 15 GM TUBE TOPICAL SCH (07:29)
[2018-08-20] MEDS ORDERED: FAMOTIDINE 20 MG TAB PO SCH (09:00)
[2018-08-20 10:32] LABS: Basophils % (A) 0 %; Eosinophils # (A) 0.2 k/uL (0-0.7); Eosinophils % (A) 2 %; HCT 30.2 % (34.0-46.0); Lymphocytes # (A) 1.5 k/uL (1.0-4.8); Lymphocytes % (A) 17 %; MCH 28.8 pg (25.0-35.0); MCHC 32.9 g/dL (31.0-37.0); MCV 87.4 fL (80.0-100.0); Mean Platelet Volume 6.4; Monocytes # (A) 0.4 k/uL (0-1.0); Monocytes % (A) 5 %; Neutrophils # (A) 6.6 k/uL (1.3-7.7); Neutrophils % (A) 74 %; Platelet Count 252 k/uL (150-450); RBC 3.46 m/uL (3.80-5.40); RDW 13.3 % (11.5-15.5); WBC 8.9 k/uL (3.8-10.6)
[2018-08-20 10:50] LABS: Calcium 8.9 mg/dL (8.4-10.2); Magnesium 1.4 mg/dL (1.6-2.3); Potassium 3.5 mmol/L (3.5-5.1); Total Bilirubin 0.3 mg/dL (0.2-1.3); Total Protein 5.7 g/dL (6.3-8.2)
[2018-08-20 12:22] LABS: Glucose,Whole Blood 133 mg/dL (75-99)
[2018-08-20] MEDS: SODIUM CHLORIDE 0.9% 1,000 ML IV SCH (13:30)
[2018-08-20 15:55] VITALS: BP 151/72; PULSE 72; TEMP 98.2
--- NOTE | 2018-08-20 16:17 | US ---
EXAMINATION TYPE: US abdomen complete DATE OF EXAM: 08/20/2018 COMPARISON: Complete abdominal ultrasound 4 days ago. CLINICAL HISTORY: lft high. elevated labs, liver labs went from 21 to 41 in 2 days, cholecystectomy EXAM MEASUREMENTS: Liver Length: 15.3 cm Gallbladder Wall: Surgically absent CBD: 0.6 cm Spleen: 12.3 cm Right Kidney: 10.6 x 5.0 x 5.5 cm Left Kidney: 11.4 x 4.2 x 5.3 cm Pancreas: not seen due to bowel gas Liver: mostly intercostal due to bowel gas Gallbladder: Surgically absent Evidence for sonographic Hernandez's sign: no CBD: wnl Spleen: wnl Right Kidney: wnl Left Kidney: wnl Upper IVC: wnl Abd Aorta: proximal portion gassed out The visualized liver remains heterogeneously hyperechoic. Evaluation for focal masses is suboptimal d ue to the heterogeneity. No new intrahepatic ductal dilatation is seen. The intrahepatic portion of the IVC and visualized mid to distal abdominal aorta are within normal limits. Gallbladder is surgica lly absent. Common bile duct is unremarkable. The pancreas is obscured by overlying bowel gas on im ages saved. The spleen is unremarkable. Kidneys are symmetric and free of hydronephrosis. No renal lesions are seen. IMPRESSION: Persistent heterogeneous hyperechoic appearance of liver could reflect product of diffuse fatty infiltration or underlying hepatocellular disease. Imaging guided random biopsy for tissue kitty lysis can be performed if desired.
--- NOTE | 2018-08-20 22:13 | PN ---
PROGRESS NOTE Patient is seen for followup for acute kidney injury. She is currently improved. Renal function is improved with creatinine down to 2.36 from 4.0 on initial admission. Patient has good urine output. She may be going home today. This morning when patient was seen, blood pressure was 143/73, heart rate 85 per minute. She was afebrile. EXAMINATION OF THE HEART: S1, S2. EXAMINATION OF LUNGS: Bilateral breath sounds are heard. ABDOMEN: Soft, non-tender. Examination of lower extremities shows no significant edema. Labs show sodium 144, potassium 3.5, chloride 114, CO2 21, BUN 31, serum creatinine 2.36, hemoglobin 10.0 g/dL. ASSESSMENT: 1. Acute kidney injury, acute tubular necrosis, currently improved. Patient can be discharged with follow-up labs as outpatient. 2. Type 2 diabetes. 3. Metabolic acidosis associated with acute kidney injury, currently improved. 4. Hypokalemia associated with hypomagnesemia, now improved. 5. Type 2 diabetes. 6. Hypertension, currently controlled. PLAN: Patient is stable for discharge. Follow up on labs as outpatient. MMODL / IJN: [id number] /
[2018-08-21] MEDS ORDERED: PIOGLITAZONE 45 MG TAB PO SCH (09:00)
== END 2018-08-20 17:02 | disposition home or self-care (01) | DRG 683 ==
LOC: 4MS4W 12:45
PROVIDERS: ADMIT Family Medicine; ATTEND Family Medicine
DX: N17.0 Acute kidney failure with tubular necrosis (principal); E87.2 Acidosis; K51.90 Ulcerative colitis, unspecified, without complications; N39.0 Urinary tract infection, site not specified; E03.9 Hypothyroidism, unspecified; E66.9 Obesity, unspecified; E78.5 Hyperlipidemia, unspecified; E83.42 Hypomagnesemia; E86.0 Dehydration; E86.1 Hypovolemia; E87.6 Hypokalemia; I10 Essential (primary) hypertension; Z79.82 Long term (current) use of aspirin; Z79.84 Long term (current) use of oral hypoglycemic drugs; Z82.49 Family history of ischemic heart disease and other diseases of the circulatory system; E11.40 Type 2 diabetes mellitus with diabetic neuropathy, unspecified; Z79.899 Other long term (current) drug therapy; Z79.890 Hormone replacement therapy; Z88.6 Allergy status to analgesic agent; Z88.2 Allergy status to sulfonamides
CPT/HCPCS: 71046; 76700; 80048; 80053; 81001; 83036; 83605; 83735; 83880; 83970; 84100; 84439; 84443; 85025; 87086

== ENCOUNTER 2018-11-20 07:46 | Day surgery (SDC) | payer MEDICARE, OTHER ==
[2018-11-19 08:55] VITALS: BMI 35.9
[~2018-11-20 07:46] MED LIST changes: +LACTATED RINGERS 1,000 ML IV SCH; +LIDOCAINE 1% 20 ML VIAL (10MG/ML) FOR IV START INTRADERMA PRN; -REGADENOSON 0.4 MG/5 ML SYRINGE IV ONE
[2018-11-20] MEDS ORDERED: LACTATED RINGERS 1,000 ML IV ONE (09:25)
[2018-11-20 09:28] VITALS: RESP 16; TEMP 97.8
[2018-11-20] MEDS ORDERED: MIDAZOLAM 2 MG/2 ML VIAL ONE (09:33)
[2018-11-20] MEDS ORDERED: fentaNYL (PF) 50 MCG/ML 2 ML AMP ONE (09:33)
[2018-11-20] MEDS ORDERED: PROPOFOL 10 MG/ML 20 ML VIAL IV ONE (09:33)
[2018-11-20 09:34] LABS: Glucose,Whole Blood 106 mg/dL (75-99)
--- NOTE | 2018-11-20 09:47 | P.PCN ---
Date of Procedure: 11/20/18 Procedure(s) Performed: BRIEF HISTORY: Patient is a 68-year-old pleasant white female, scheduled for an elective colonoscopy as a part of surveillance of Lalo history of ulcerative colitis. She was diagnosed with ulcerative colitis in 2000. She remains in clinical remission. PROCEDURE PERFORMED: Colonoscopy with random biopsy. PREOPERATIVE DIAGNOSIS: Surveillance of long-standing history of ulcerative colitis. IV sedation per Anesthesia. PROCEDURE: After informed consent was obtained, the patient, was brought into the endoscopy unit. IV sedation was administered by Anesthesia under continuous monitoring. Digital rectal examination was normal. Initially the Olympus CF- 160 flexible video colonoscope was then inserted in the rectum, gradually advanced into the cecum without any difficulty. Careful examination was performed as the scope was gradually being withdrawn. Ileocecal valve and the appendiceal orifice were visualized and appeared normal. Prep was excellent. Mucosa of the cecum, ascending colon, transverse colon, descending colon, sigmoid colon, and rectum appeared normal. Random biopsies were done from the rectum to cecum and every 10 cm intervals to rule out . dysplasia Scattered sigmoid diverticulosis seen. Retroflexion was performed in the rectum and no lesions were seen. The patient tolerated the procedure well. IMPRESSION: Normal-appearing colon from rectum to cecum with no evidence of colitis or colorectal neoplasia Scattered sigmoid diverticulosis. RECOMMENDATIONS: Findings of this examination were discussed with the patient as well as her family. She was advised to follow with the biopsy results. If the biopsy does not have any evidence of dysplasia, she can have a repeat colonoscopy in 2 years
[2018-11-20 10:13] VITALS: BP 130/88; PULSE 84
== END 2018-11-20 10:35 | disposition home or self-care (01) ==
LOC: ORWHC2ENDO 07:46
PROVIDERS: ATTEND Internal Medicine Gastroenterology
DX: K57.30 Diverticulosis of large intestine without perforation or abscess without bleeding (principal); K51.90 Ulcerative colitis, unspecified, without complications; G47.33 Obstructive sleep apnea (adult) (pediatric); E11.9 Type 2 diabetes mellitus without complications; E07.9 Disorder of thyroid, unspecified; Z79.890 Hormone replacement therapy; I10 Essential (primary) hypertension; E78.49 Other hyperlipidemia; Z79.84 Long term (current) use of oral hypoglycemic drugs; Z79.82 Long term (current) use of aspirin; Z79.899 Other long term (current) drug therapy; Z88.2 Allergy status to sulfonamides; Z88.6 Allergy status to analgesic agent
CPT/HCPCS: 88305; 45380; J2250; J3010; J2704

== ENCOUNTER → 2019-01-08 | Outpatient (CLI) | payer MEDICARE, OTHER ==
--- NOTE | 2019-01-09 11:42 | MR ---
EXAMINATION TYPE: MR shoulder RT wo con DATE OF EXAM: 01/08/2019 COMPARISON: None HISTORY: Rt shoulder pain x 8 mos, after heavy lifting TECHNIQUE: Multiplanar, multisequence imaging of the right shoulder is performed without contrast. FINDINGS: There is some motion on the exam. Rotator Cuff: There is abnormal increased signal within the rotator cuff which shows thickening. Ther e is a partial full-thickness tear involving the rotator cuff tendon peripherally. Acromioclavicular Joint: Arthropathy present at the acromioclavicular joint causes mass effect on the musculotendinous junction of supraspinatus. There is a small distal acromial spur. Glenohumeral Joint: Intact Labrum: Suspect there is a sublabral foramen rather than labral tear Biceps Tendon: There is fluid around the long head of the biceps tendon shows a normal position Bone marrow signal: Barba are present within the humeral head. Other: There is fluid signal subacromial subdeltoid bursa. Subcutaneous edema changes are also suspec angel. IMPRESSION: Partial full-thickness tear of the rotator cuff tendon, correlate for possible impingement. Additiona l findings above.
== END | disposition home or self-care (01) ==
LOC: RADMRIMAIN 15:34
PROVIDERS: ATTEND Family Medicine
DX: M75.111 Incomplete rotator cuff tear or rupture of right shoulder, not specified as traumatic (principal)

== ENCOUNTER 2019-05-16 10:40 | Day surgery (SDC) | payer MEDICARE, OTHER ==
[2019-05-13 17:56] VITALS: BMI 37.4
[~2019-05-16 10:40] MED LIST changes: +DEXAMETHASONE SOD PHOSPHATE 10 MG/ML 1 ML VIAL IV ONE; +HYDROmorphone 0.5 MG/0.5 ML SYRINGE IVP PRN; -LIDOCAINE 1% 20 ML VIAL (10MG/ML) FOR IV START INTRADERMA PRN; +MIDAZOLAM 2 MG/2 ML VIAL IV PRN; +ONDANSETRON 4 MG/2 ML VIAL IVP ONE; +Pre Op ABX Message 1 EACH MISC MISCELLANE ONE
[2019-05-16 11:01] VITALS: TEMP 97.8
[2019-05-16 11:11] LABS: Glucose,Whole Blood 113 mg/dL (75-99)
[2019-05-16] MEDS ORDERED: LACTATED RINGERS 1,000 ML IV ONE (11:12)
[2019-05-16] MEDS ORDERED: LIDOCAINE 1% 20 ML VIAL (10MG/ML) FOR IV START INTRADERMA ONE (11:12)
[2019-05-16] MEDS ORDERED: KETAMINE 10 MG/ML 20 ML VIAL ONE (12:27)
[2019-05-16] MEDS ORDERED: LIDOCAINE 1% INJ 10MG/ML (20 ML MDV) ONE (12:27)
[2019-05-16] MEDS ORDERED: fentaNYL (PF) 50 MCG/ML 2 ML AMP ONE (12:27)
[2019-05-16] MEDS ORDERED: MIDAZOLAM 2 MG/2 ML VIAL ONE (12:27)
[2019-05-16] MEDS ORDERED: PROPOFOL 10 MG/ML 20 ML VIAL IV ONE (12:27)
[2019-05-16] MEDS ORDERED: LIDOCAINE 2% (PF) 20 MG/ML 10 ML AMP SQ ONE ×2 (12:53)
[2019-05-16] MEDS ORDERED: BUPIVACAINE (PF) 0.5% 30 ML VIAL SQ ONE ×2 (12:53)
[2019-05-16] MEDS ORDERED: BUPIVACAIN-EPI 0.25%-1:200,000 30 ML VIAL SQ ONE (13:53)
[2019-05-16 14:18] VITALS: RESP 16
[2019-05-16 14:46] VITALS: BP 154/88; PULSE 85
--- NOTE | 2019-05-16 16:44 | P.OP ---
Date of Procedure: 05/16/19 Preoperative Diagnosis: 1. Right wrist dorsal ganglion cyst. 2. SLAC wrist. 3. Right middle trigger finger. Postoperative Diagnosis: 1. Right dorsal wrist mass with extensor tenosynovitis. 2. SLAC wrist. 3. Right middle trigger finger. Procedure(s) Performed: 1. Excision of right dorsal wrist mass with extensor tenosynovectomy 2. Right middle trigger finger release Anesthesia: MAC, local Surgeon: Rocky Myers Estimated Blood Loss (ml): 5 Pathology: other (Right wrist mass, measuring 21 mm x 17 mm x 10 mm) Condition: stable Disposition: same day Indications for Procedure: The patient is a pleasant 69-year-old female who presented to the office with a painful mass on her right dorsal wrist, suspected to be a ganglion cyst, as well as a right middle trigger finger. She had a prior ganglion cyst excision in the right dorsal wrist many years ago. Treatment options (and associated risks and benefits) were discussed in the office. The patient elected to proceed with surgical release of the trigger finger and mass excision. In preop, the patient denied any additional questions or concerns. Consent forms were signed. The operative sites were confirmed and marked. Description of Procedure: The patient was positioned supine with the operative limb on an arm board. Monitored anesthesia was administered. Using aseptic technique, local anesthetic was injected into the subcutaneous tissues tissues around the planned incisions. The right upper extremity was prepped and draped in standard, sterile fashion. A timeout was performed which confirmed the patient, this operative side, the site and the procedure to be performed. All team members expressed agreement. The hand was exsanguinated with an Esmarch and the tourniquet was inflated. A longitudinal incision was marked over the A1 dong of the middle finger. Loupe magnification was utilized throughout the case for optimum visualization. The skin was sharply incised. Blunt, spreading dissection proceeded down flexor sheath, taking care to protect the adjacent neurovascular bundles. The A1 dong was identified. Dense synovial adhesions were identified along the flexor sheath. The dong was incised longitudinally. The flexor tendons were elevated out of the wound with Ragnell retractors. Palpable release of proximal adhesions in the palm was noted. Thickened tenosynovial tissue was resected from between the tendons which were then released and allowed to retract back to their anatomic positions. Passive motion of the digit demonstrated smooth tendon gliding without appreciable catching, triggering or focal restriction. There was, however, persistent tightness with passive flexion at the PIP joint, likely from long-standing disuse. Attention was then turned to the dorsal mass. The patient's previous transverse incision was utilized. The skin was sharply incised and full-thickness skin flaps were elevated. Superficial vessels were coagulated as needed with bipolar cautery. A poorly-circumscribed soft tissue mass was identified at the distal edge of the extensor retinaculum. This had a lobulated yellow/null appearance of thickened, proliferative synovial tissue, though giant cell tumor would also be in the differential. The interval between the third and fourth extensor compartments was developed. Thickened tenosynovial tissue was noted around the adjacent extensor tendons which was sharply resected. No obvious fraying or tendon injury was identified. A small sensory nerve branch was adherent to the distal aspect of the mass and was dissected free. The mass was circumferentially dissected free from the adjacent tendons and traced down to the dorsal wrist capsule. The mass was centered mainly over the junction of the scapholunate and lunocapitate articulations. A portion of the dorsal capsule was resected along with the mass which was then excised and sent for pathology. The stalk, surrounding joint capsule and soft tissues were mechanically debrided with a rongeur. The wound was visibly and palpably explored: no other mass or abnormal tissues were identified. Moderate synovitis was noted in the radiocarpal joint with eburnation of the proximal lunate and osteophytes on its dorsal aspect. Passive motion of the wrist revealed no gross laxity or instability. The joint and wound were copiously irrigated with normal saline using an 18- gauge angiocatheter and syringe. The tourniquet was released after 51 minutes at 250 mmHg. Good hemostasis was obtained with held pressure and bipolar cautery. The capsulotomy was left open. The incisions were closed with interrupted 4-0 nylon sutures. Additional local anesthetic with epinephrine was injected for adjunctive postoperative pain control and hemostasis. A soft, sterile dressing was applied to both wounds followed by a resting volar plaster splint. All sponge, needle and instrument counts were correct at the end the case. The patient tolerated the procedure well and was transferred to recovery in stable condition.
== END 2019-05-16 15:10 | disposition home or self-care (01) ==
LOC: OR 10:40
PROVIDERS: ATTEND Orthopaedic Surgery
DX: M67.431 Ganglion, right wrist (principal); M25.831 Other specified joint disorders, right wrist; M65.331 Trigger finger, right middle finger; M65.88 Other synovitis and tenosynovitis, other site; M25.731 Osteophyte, right wrist; M19.041 Primary osteoarthritis, right hand; M18.11 Unilateral primary osteoarthritis of first carpometacarpal joint, right hand; M19.231 Secondary osteoarthritis, right wrist; I12.9 Hypertensive chronic kidney disease with stage 1 through stage 4 chronic kidney disease, or unspecified chronic kidney disease; E11.22 Type 2 diabetes mellitus with diabetic chronic kidney disease; N18.3 Chronic kidney disease, stage 3 (moderate); E11.42 Type 2 diabetes mellitus with diabetic polyneuropathy; E78.5 Hyperlipidemia, unspecified; K51.90 Ulcerative colitis, unspecified, without complications; H91.90 Unspecified hearing loss, unspecified ear; G47.33 Obstructive sleep apnea (adult) (pediatric); R26.81 Unsteadiness on feet; Z79.82 Long term (current) use of aspirin; Z79.890 Hormone replacement therapy; Z79.84 Long term (current) use of oral hypoglycemic drugs; Z79.899 Other long term (current) drug therapy; Z88.6 Allergy status to analgesic agent; Z88.1 Allergy status to other antibiotic agents; Z88.2 Allergy status to sulfonamides; Z97.2 Presence of dental prosthetic device (complete) (partial); Z90.49 Acquired absence of other specified parts of digestive tract; Z97.3 Presence of spectacles and contact lenses; Z83.3 Family history of diabetes mellitus; Z82.49 Family history of ischemic heart disease and other diseases of the circulatory system
CPT/HCPCS: 25112; 26055; 88304; J2250; J1100; J2001 ×2; J2405; J3010; J2704

== ENCOUNTER → 2020-10-18 | Outpatient (CLI) | payer MEDICARE, OTHER ==
--- NOTE | 2020-10-18 16:00 | CT ---
EXAMINATION TYPE: CT chest wo con DATE OF EXAM: 10/18/2020 COMPARISON: Chest CT January 14, 2018 HISTORY: COPD. Chronic cough x1 year. CT DLP: 449.3 mGycm. Automated Exposure Control for Dose Reduction was Utilized. TECHNIQUE: CT scan of the thorax is performed without IV contrast. FINDINGS: LUNGS: The lungs remain grossly clear, there is no concerning new parenchymal mass or nodule identifi ed. There is no pleural effusion or pneumothorax seen. The tracheobronchial tree is patent. MEDIASTINUM: Lack of IV contrast is noted to limit evaluation for mediastinal and especially hilar ad enopathy. There are no definitive greater than 1 cm hilar or mediastinal lymph nodes. No cardiomega ly or pericardial effusion is seen. Mild to moderate coronary artery calcification in the LAD distrib ution. Thyroid gland small in size or atrophic similar to prior. OTHER: Cholecystectomy clips redemonstrated. Underlying scoliotic curvature with mild/moderate multil evel spurring. Exaggerated thoracic kyphosis. IMPRESSION: No significant acute or chronic pulmonary process. No significant change from prior.
== END | disposition home or self-care (01) ==
LOC: RADCTMAIN 15:09
PROVIDERS: ATTEND Family Medicine
DX: J44.9 Chronic obstructive pulmonary disease, unspecified (principal)
CPT/HCPCS: 71250

== ENCOUNTER → 2020-12-31 | Outpatient (CLI) | payer MEDICARE, OTHER ==
[~2020-12-31] MED LIST changes: -DEXAMETHASONE SOD PHOSPHATE 10 MG/ML 1 ML VIAL IV ONE; -HYDROmorphone 0.5 MG/0.5 ML SYRINGE IVP PRN; -LACTATED RINGERS 1,000 ML IV SCH; -MIDAZOLAM 2 MG/2 ML VIAL IV PRN; -ONDANSETRON 4 MG/2 ML VIAL IVP ONE; -Pre Op ABX Message 1 EACH MISC MISCELLANE ONE; +REGADENOSON 0.4 MG/5 ML SYRINGE IV PRN
--- NOTE | 2020-12-31 10:53 | ECHOF ---
Referral Reason:R94.31 ABN EKG; I10 HYPERTENSION MEASUREMENTS -------- HEIGHT: 162.6 cm WEIGHT: 98.9 kg BP: IVSd: 0.8 cm (0.6 - 1.1) LVIDd: 4.2 cm (3.9 - 5.3) LVPWd: 0.7 cm (0.6 - 1.1) IVSs: 2.1 cm LVIDs: 1.7 cm LVPWs: 1.5 cm LAESV Index (A-L): 19.94 ml/m Ao Diam: 2.6 cm (2.0 - 3.7) AV Cusp: 1.7 cm (1.5 - 2.6) LA Diam: 3.4 cm (2.7 - 3.8) MV EXCURSION: 11.106 mm (> 18.000) MV EF SLOPE: 90 mm/s (70 - 150) EPSS: 0.6 cm MV E Jose F: 0.78 m/s MV DecT: 246 ms MV A Jose F: 0.93 m/s MV E/A Ratio: 0.84 RAP: 5.00 mmHg RVSP: 10.49 mmHg FINDINGS -------- This was a technically adequate study. The left ventricular size is normal. Left ventricular wall thickness is normal. Overall left vent ricular systolic function is normal with, an EF between 55 - 60 %. The diastolic filling pattern is normal for the age of the patient 12.76. The right ventricle is normal in size. The left atrial size is normal. Normal LA size by volume 22+/-6 ml/m2. The right atrial size is normal. Interatrial and interventricular septum intact. Aortic valve is trileaflet and is mildly thickened. The mitral valve is normal. There is trace mitral regurgitation. The tricuspid valve appears structurally normal. Trace tricuspid regurgitation present. Right raul tricular systolic pressure is normal at < 35 mmHg. There is no pulmonic regurgitation present. The aortic root size is normal. Normal inferior vena cava with normal inspiratory collapse consistent with estimated right atrial pre ssure of 5 mmHg. There is no pericardial effusion. CONCLUSIONS -------- 1. The left ventricular size is normal. 2. Left ventricular wall thickness is normal. 3. Overall left ventricular systolic function is normal with, an EF between 55 - 60 %. 4. The diastolic filling pattern is normal for the age of the patient 12.76 5. Aortic valve is trileaflet and is mildly thickened. 6. There is trace mitral regurgitation. 7. Trace tricuspid regurgitation present. 8. There is no pericardial effusion. RESEARCH RN SPEC: Ronda Waters RDCS
--- NOTE | 2020-12-31 11:47 | EST ---
EXERCISE STRESS AGE: 70 SEX: Female HT: 5'4" WT: 218 lbs PROTOCOL: Lexiscan Cardiolite STAGE: N/A DURATION OF EXERCISE: 5 min HEART RATE REST: 69 BLOOD PRESSURE REST: 124/51 MAXIMUM HEART RATE ACHIEVED: 87 MAXIMUM BLOOD PRESSURE: 112/51 85% MPHR: 126 100% MPHR: 148 METS: N/A INDICATIONS: Hypertension CLINICAL INFORMATION: Baseline EKG revealed normal sinus rhythm with a right bundle branch block pattern and repolarization abnormality. With Lexiscan administration, heart rate changed from 69 to 87 beats per minute. Blood pressure changed from 124/51 to 112/51, and came back to baseline. EKG remained unremarkable and inconclusive. By EKG criteria, this is an inconclusive Lexiscan stress test because of resting EKG changes. The nuclear scan results which are more pertinent will be reported by the radiologist. GERARDO / JEMMA: [id number] /
--- NOTE | 2020-12-31 16:19 | NM ---
EXAMINATION TYPE: NM stress lexiscan cardiolite DATE OF EXAM: 12/31/2020 COMPARISON: NONE HISTORY: TECHNIQUE: After the intravenous administration of 9.5 mCi Tc 99m Sestamibi - Cardiolite resting SPE CT images acquired 60 minutes post injection. At peak stress 24.7 mCi Tc 99m Sestamibi - Stress images obtained 45 minutes post injection The patient was stressed with 0.4mg Lexiscan. FINDINGS: No fixed defects are evident No reversible stress defects on Spect images There is dyskinesia of the cardiac apex. Some dyskinesia of the distal septal wall may be present. Ejection fraction is calculated to be 47 %. IMPRESSION: 1. No stress-induced ischemic changes. 2. Interval development of dyskinesia of the cardiac apex and septal wall. 3. Ejection fraction diminished 47%
== END | disposition home or self-care (01) ==
LOC: RADNMMAIN 07:48
PROVIDERS: ATTEND Family Medicine
DX: I10 Essential (primary) hypertension (principal)
CPT/HCPCS: 93017; 93306; 78452; A9500; J2785

== ENCOUNTER → 2021-06-30 | Outpatient (CLI) | payer MEDICARE, OTHER ==
--- NOTE | 2021-06-30 11:11 | NM ---
EXAMINATION TYPE: NM stress lexiscan cardiolite DATE OF EXAM: 06/30/2021 COMPARISON: NONE HISTORY: Precordial chest pain and abnormal EKG TECHNIQUE: After the intravenous administration of 10.2 mCi Tc 99m Sestamibi - Cardiolite resting SP ECT images acquired 45 minutes post injection. The patient received 0.4mg Lexiscan, 25.2 mCi Tc 99m Sestamibi - Stress images obtained [address] injection FINDINGS: Review of stress and rest SPECT images demonstrates no distinct perfusion abnormality. Gated analysi s shows normal wall motion with an estimated left ventricular ejection fraction of 68 %. IMPRESSION: No scintigraphic evidence for reversible ischemia.
--- NOTE | 2021-06-30 12:02 | P.STRESS ---
- Stress Test Note Stress Test Results/Findings: Exam Performed: NM stress lexiscan cardiolite Exam Date: 06/30/21 Reason for Exam: Chest Pain Height: 5 ft 4 in Weight: 98.883 kg Protocol: Lexiscan Stage: na Duration of Exercise: na Resting Heart Rate: 64 Resting Blood Pressure: 146/69 Maximum Achieved Heart Rate: 86 Maximum Achieved Blood Pressure: 149/73 85% PMHR: 125 100% PMHR: 147 METS: na Technologist Comment: Stress Test Results/Findings: At baseline EKG showed Normal sinus rhythm, normal axis, right bundle branch block with nonspecific 0.[address] depressions in the inferior and lateral leads. With Lexiscan infusion there is no significant change from baseline. Conclusions: 1. Normal EKG response to Lexiscan infusion 2. Nuclear imaging to be reported separately.
== END | disposition home or self-care (01) ==
LOC: RADNMMAIN 08:17
PROVIDERS: ATTEND Family Medicine
DX: R07.2 Precordial pain (principal); R94.31 Abnormal electrocardiogram [ECG] [EKG]
CPT/HCPCS: 93017; 78452; A9500; J2785

== ENCOUNTER 2022-01-06 10:19 | Inpatient (IN) | payer MEDICARE, OTHER ==
[2022-01-06 11:27] LABS: Glucose,Whole Blood 142 mg/dL (75-99)
[2022-01-06] MEDS ORDERED: IPRATROPIUM-ALBUTEROL 3 ML NEB INHALATION PRN (15:07)
[2022-01-06] MEDS ORDERED: HYDROmorphone 0.5 MG/0.5 ML SYRINGE IVP PRN (15:09)
[2022-01-06 15:18] LABS: Basophils % (A) 0 %; Eosinophils # (A) 0.1 k/uL (0-0.7); Eosinophils % (A) 1 %; HCT 41.6 % (34.0-46.0); HGB 14.1 gm/dL (11.4-16.0); Lymphocytes # (A) 2.1 k/uL (1.0-4.8); Lymphocytes % (A) 21 %; MCH 30.1 pg (25.0-35.0); MCHC 33.8 g/dL (31.0-37.0); MCV 89.1 fL (80.0-100.0); Mean Platelet Volume 7.6; Monocytes # (A) 0.5 k/uL (0-1.0); Monocytes % (A) 5 %; Neutrophils # (A) 7.4 k/uL (1.3-7.7); Neutrophils % (A) 72 %; Platelet Count 301 k/uL (150-450); RBC 4.66 m/uL (3.80-5.40); RDW 13.9 % (11.5-15.5); WBC 10.2 k/uL (3.8-10.6)
[2022-01-06 15:19] LABS: ALT 33 U/L (4-34); AST 63 U/L (14-36); African American GFR (CKD) 77 (>60 ml/min/1.73 sqM); Albumin 3.9 g/dL (3.5-5.0); Albumin/Globulin Ratio 1.3; Alkaline Phosphatase 302 U/L (38-126); Anion Gap 14 mmol/L; Blood Urea Nitrogen 11 mg/dL (7-17); Calcium 9.2 mg/dL (8.4-10.2); Carbon Dioxide 22 mmol/L (22-30); Chloride 103 mmol/L (98-107); Globulin 2.9 g/dL; Glucose 156 mg/dL (74-99); Non-African American GFR(CKD) 66 (>60 ml/min/1.73 sqM); Potassium 3.4 mmol/L (3.5-5.1); Sodium 139 mmol/L (137-145); Total Bilirubin 1.6 mg/dL (0.2-1.3); Total Protein 6.8 g/dL (6.3-8.2)
[2022-01-06] MEDS: SODIUM CHLORIDE 0.9% 1,000 ML IV SCH (15:25)
[2022-01-06] MEDS: FUROSEMIDE 40 MG TAB PO SCH (16:34)
[2022-01-06] MEDS: AMPICILLIN-SULBACTAM 1.5 GM in SODIUM CHLORIDE 0.9% 50 ML IVPB SCH ×2 (16:34→23:41)
[2022-01-06 16:53] LABS: Appearance,Urine Clear (Clear); Bacteria,Urine Occasional /hpf; Bilirubin,Urine Negative (Negative); Blood,Urine Negative (Negative); Calcium Oxalate Crystals,Urine Occasional /hpf; Color,Urine Yellow; Glucose,Urine (UA) Negative (Negative); Hyaline Casts,Urine 9 /lpf (0-2); Ketones,Urine Negative (Negative); Leukocyte Esterase,Urine Small (Negative); Mucus,Urine Occasional /hpf; Nitrite,Urine Negative (Negative); PH, Urine 5.5 (5.0-8.0); Protein,Urine Negative (Negative); RBC,Urine 1 /hpf (0-5); Specific Gravity,Urine 1.014 (1.001-1.035); Squamous Epithelial Cell,Urine 6 /hpf (0-4); Urobilinogen,Urine <2.0 mg/dL (<2.0); WBC,Urine 11 /hpf (0-5)
[2022-01-06 17:26] LABS: Glucose,Whole Blood 129 mg/dL (75-99)
--- NOTE | 2022-01-06 17:32 | CT ---
EXAMINATION TYPE: CT abdomen pelvis wo con CT DLP: 1095 mGycm, Automated exposure control for dose reduction was used. DATE OF EXAM: 01/06/2022 4:52 PM COMPARISON: CT abdomen pelvis most recent from . CLINICAL INDICATION:Female, 71 years old with history of flank pain; TECHNIQUE: Standard CT of the abdomen and pelvis without IV or oral contrast. Lack of IV or oral co ntrast limits evaluation of solid and hollow organ viscera. Coronal and sagittal reformats were perfo rmed. FINDINGS: LOWER CHEST: Unremarkable ABDOMEN LIVER: Unremarkable GALLBLADDER AND BILE DUCTS: The gallbladder is surgically absent. PANCREAS: Unremarkable. SPLEEN: Unremarkable. ADRENAL GLANDS: Unremarkable. KIDNEYS AND URETERS: No evidence of hydronephrosis or renal calculus. The ureters are unremarkable. PELVIS BLADDER: Unremarkable REPRODUCTIVE: Fibroid uterus with coarse calcifications. ABDOMEN & PELVIS STOMACH AND BOWEL: No evidence of bowel obstruction. The appendix is visualized and normal. Few scatt ered clonic diverticula present. PERITONEUM: No evidence of pneumoperitoneum or free fluid. VASCULATURE: No evidence of aortic aneurysm. Moderate atherosclerosis of the arterial vasculature. MUSCULOSKELETAL: No acute osseous abnormalities. Multilevel disc degeneration changes. LYMPH NODES: No gross evidence for lymphadenopathy. SOFT TISSUE/ABDOMINAL WALL: Fat filled umbilical hernia measuring 0.51 cm at the neck. IMPRESSION: 1. No evidence of acute intra-abdominal process. 2. Colonic diverticulosis without diverticulitis. 3. Fibroid uterus.
[2022-01-06] MEDS: ATORVASTATIN 40 MG TAB PO SCH (20:25)
[2022-01-06] MEDS: POTASSIUM CHLORIDE ER 20 MEQ TAB.ER PO SCH (20:25)
[2022-01-06] MEDS: atenoloL 25 MG TAB PO SCH (20:25)
[2022-01-06] MEDS: PANTOPRAZOLE 40 MG TABLET PO SCH (20:25)
[2022-01-06] MEDS: Acetaminophen-Codeine 300-30mg TAB PO PRN (20:26)
[2022-01-06 20:31] LABS: Glucose,Whole Blood 147 mg/dL (75-99)
[2022-01-07] MEDS: SODIUM CHLORIDE 0.9% 1,000 ML IV SCH ×2 (05:22→15:59)
[2022-01-07] MEDS: LEVOTHYROXINE 125 MCG TAB PO SCH (05:58)
[2022-01-07 07:18] LABS: Glucose,Whole Blood 162 mg/dL (75-99)
[2022-01-07] MEDS: AMPICILLIN-SULBACTAM 1.5 GM in SODIUM CHLORIDE 0.9% 50 ML IVPB SCH ×3 (08:20→23:44)
[2022-01-07] MEDS: atenoloL 25 MG TAB PO SCH ×2 (08:21→20:46)
[2022-01-07] MEDS: FUROSEMIDE 40 MG TAB PO SCH ×2 (08:21→15:58)
[2022-01-07] MEDS: CHOLECALCIFEROL 25 MCG (1000 IU) TABLET PO SCH (08:21)
[2022-01-07 11:29] LABS: Basophils # (A) 0.07 X 10*3/uL (0.00-0.10); Basophils % (A) 0.6 %; Eosinophils # (A) 0.11 X 10*3/uL (0.04-0.35); Eosinophils % (A) 0.9 %; HCT 40.2 % (37.2-46.3); HGB 12.6 g/dL (12.0-15.0); Immature Grans, Automated 0.5 %; Lymphocytes # (A) 2.75 X 10*3/uL (0.90-5.00); Lymphocytes % (A) 22.6 %; MCH 27.6 pg (27.0-32.0); MCHC 31.3 g/dL (32.0-37.0); MCV 88.2 fL (80.0-97.0); Mean Platelet Volume 10.5 fL (9.5-12.2); Monocytes # (A) 0.82 X 10*3/uL (0.20-1.00); Monocytes % (A) 6.7 %; NRBC Per 100 WBC 0 /100 WBCS (0.0-0.0); Neutrophils # (A) 8.36 X 10*3/uL (1.80-7.70); Neutrophils % (A) 68.7 %; Platelet Count 302 X 10*3/uL (140-440); RBC 4.56 X 10*6/uL (4.10-5.20); RDW 13.8 % (11.5-14.5); WBC 12.17 X 10*3/uL (4.50-10.00)
[2022-01-07 11:39] LABS: African American GFR (CKD) 69.8 (60.0-200.0); Albumin 3.7 g/dL (3.8-4.9); Albumin/Globulin Ratio 1.67 (1.60-3.17); Anion Gap 15.2 mmol/L (10.00-18.00); BUN/Creat Ratio 9.23 Ratio (12.00-20.00); Blood Urea Nitrogen 8.7 mg/dL (9.0-27.0); Calcium 9.3 mg/dL (8.7-10.3); Carbon Dioxide 21.8 mmol/L (20.0-27.5); Globulin 2.2 g/dL (1.6-3.3); Non-African American GFR(CKD) 60.3 (60.0-200.0); Potassium 3.5 mmol/L (3.5-5.5); Total Bilirubin 1.1 mg/dL (0.30-1.20)
[2022-01-07 11:43] LABS: Glucose,Whole Blood 128 mg/dL (75-99)
[2022-01-07 12:22] VITALS: BMI 35.3
[2022-01-07] MEDS ORDERED: CYCLOBENZAPRINE 5 MG TAB PO PRN (14:01)
--- NOTE | 2022-01-07 14:14 | HP ---
HISTORY AND PHYSICAL HISTORY OF PRESENT ILLNESS: 71-year-old white female came in with pyelonephritis with left flank pain, abnormal UA, failure to treat outpatient with oral antibiotics. She became worse with pain, nausea, vomiting, at which time we admitted her to the hospital, started on IV antibiotics, Unasyn. Wait for urine cultures. Partially treated urine culture as well as outpatient urine culture. Continue with broad-spectrum antibiotics. She is feeling a little bit better with her cough, congestion and shortness of breath. Her left-sided lumbar pain and will possibly give her muscle relaxants today. Home medicines: Tylenol #3 daily, DuoNeb q.i.d. She was on Levaquin as an outpatient, Tenormin 25 b.i.d., Lipitor 40 daily, multivitamin daily, Trulicity 0.75 weekly, Lasix 40 mg b.i.d., Synthroid 125 mcg daily, Protonix 40 mg daily, K-Dur 40 mEq daily. REVIEW OF SYMPTOMS: 14 point review of systems as mentioned above. Otherwise negative. PHYSICAL EXAM: She has CVA tenderness on the left side of her spine in the left lumbar area. Chest palpation left lower quadrant abdomen. CT of the abdomen is reviewed. Mild guarding. No rebound. Cardiovascular: S1, S2. Lungs: Clear. GI soft. Hematology negative Homans. Negative straight leg raising test. Cranial nerves are intact. Psych: Fair mood and affect. ASSESSMENT: 1. Pyelonephritis. 2. Acute lumbar back pain. 3. Asthma. 4. Chronic obstructive pulmonary disease exacerbation. 5. Possible pneumonia. 6. Leukocytosis secondary to above. 7. Diabetes mellitus. 8. Chronic kidney disease. 9. Prognosis guarded. Continue with broad-spectrum antibiotics. Await for cultures. Do chest x-rays. Prognosis guarded. MMODL / IJN: [id number] /
--- NOTE | 2022-01-07 15:13 | XR ---
EXAMINATION TYPE: XR chest 2V DATE OF EXAM: 01/07/2022 COMPARISON: NONE HISTORY: Short of breath. Weakness TECHNIQUE: FINDINGS: There is no heart failure nor confluent pneumonic infiltrate. Costophrenic angles are clear . Heart and mediastinum are normal. There are no hilar masses. Bony thorax is intact. IMPRESSION: Normal chest. No change.
--- NOTE | 2022-01-07 15:17 | CT ---
EXAMINATION TYPE: CT lumbar spine wo con DATE OF EXAM: 01/07/2022 COMPARISON: None HISTORY: Lumbar DDD CT DLP: 869 mGycm Automated exposure control for dose reduction was used. Images obtained from L1 to S1 without contrast. Lumbar vertebrae have normal alignment. Disc spaces are fairly normal. There is no paraspinal mass. S acroiliac joints are intact. There is no compression fracture. No evidence of spinal stenosis. I see no bony destructive process. There is L3-4 posterior concentric disc bulging. There is some mild hype rtrophic facet arthropathy. IMPRESSION: Minor degenerative changes in the lumbar spine. No spinal stenosis. No fracture. No change compared t o CT scan yesterday.
[2022-01-07 17:20] LABS: Glucose,Whole Blood 150 mg/dL (75-99)
[2022-01-07] MEDS: ATORVASTATIN 40 MG TAB PO SCH (20:42)
[2022-01-07] MEDS: PANTOPRAZOLE 40 MG TABLET PO SCH (20:42)
[2022-01-07] MEDS: POTASSIUM CHLORIDE ER 20 MEQ TAB.ER PO SCH (20:42)
[2022-01-07] MEDS: Acetaminophen-Codeine 300-30mg TAB PO PRN (20:42)
[2022-01-08] MEDS: LEVOTHYROXINE 125 MCG TAB PO SCH (05:43)
[2022-01-08] MEDS: SODIUM CHLORIDE 0.9% 1,000 ML IV SCH ×2 (05:43→11:53)
[2022-01-08 07:03] LABS: Glucose,Whole Blood 123 mg/dL (75-99)
[2022-01-08] MEDS: AMPICILLIN-SULBACTAM 1.5 GM in SODIUM CHLORIDE 0.9% 50 ML IVPB SCH ×2 (07:18→15:29)
[2022-01-08] MEDS: FUROSEMIDE 40 MG TAB PO SCH ×2 (08:52→15:29)
[2022-01-08] MEDS: CHOLECALCIFEROL 25 MCG (1000 IU) TABLET PO SCH (08:52)
[2022-01-08] MEDS: atenoloL 25 MG TAB PO SCH ×2 (08:52→20:30)
[2022-01-08 11:45] LABS: Glucose,Whole Blood 146 mg/dL (75-99)
--- NOTE | 2022-01-08 12:54 | PN ---
PROGRESS NOTE 71-year-old white female who was admitted with asthma, COPD exacerbation, severe left flank pain with acute disk herniation, non treated pyelonephritis, been maintaining any antibiotics. She still has cough, congestion, shortness of breath. Sat in the low 90s on room air. Get Pulmonary to see her. CT scan of the lumbar spine was reviewed as well as the abdomen. She has severe flank pain. She is unable to lift her left leg off the ground. She is unable to walk. We will have to get physical therapy and lumbar epidural ordered as she at present most likely has a herniated disk in the left leg. She has straight leg raising test 45 degrees on the left. Musculoskeletal exam: She has severe tenderness and guarding in the left flank, suspicious for pyelonephritis untreated. She was treated with antibiotics as an outpatient for abnormal UA and she failed at which time she was admitted. Remains on Unasyn despite the urine culture here. We checked the urine culture from the office and ordered steroids for her breathing as well as her back and get a lumbar epidural ordered. She is sitting up in the chair. Sugars are in mid 100s. We will start on IV Solu-Medrol and continue with IV Unasyn. PROGNOSIS: Guarded. We will order a lumbar epidural and get physical therapy as she is unable to walk or lift her left leg. Please see further orders. MMODL / IJN: [id number] /
--- NOTE | 2022-01-08 13:36 | P.CNPUL ---
History of Present Illness Consult date: 01/08/22 Reason for consult: dyspnea, cough Chief complaint: This is a 71-year-old admitted for failed outpatient therapy for UTI History of present illness: Patient is a 71-year-old female prior history of COPD presented into the hospital with non-resolving urinary tract infection and pyelonephritis, patient has been treated outpatient basis with oral antibiotics without any significant improvement worsening of back pain has been noted along with ongoing cough patient was seen in primary care's office with ongoing developing nausea and flank pain advise to be admitted into the hospital her urine culture is pending. She underwent computed tomography scan of the M Don pelvis followed by chest x- ray and lumbar spine x-ray, chest x-ray is unremarkable, computed tomography scan of the abdominal and pelvis no acute pathology and 5, mild DJD changes identified on CT of the lumbar spine, labs reviewed white cell count is 12,000 hemoglobin and hematocrit is 12 and 40, platelet count is 10 2000, chemistry within normal limit glucose slightly elevated at 160 patient is gently being rehydrated with broad-spectrum antibiotics with Unasyn also on bronchodilator, she has been on IV steroids as well Patient is a nonsmoker she has ongoing cough for last 6 months which is on and off usually respond to bronchodilator. She does have on and off chronic sinus problem however denies any allergen present at home had significant symptoms of GERD in the past but has been controlled with Protonix lately Review of Systems All systems: negative Past Medical History Past Medical History: Diabetes Mellitus, Eye Disorder, Hearing Disorder / Deafness, Hyperlipidemia, Hypertension, Osteoarthritis (OA), Renal Disease, Sleep Apnea/CPAP/BIPAP, Thyroid Disorder Additional Past Medical History / Comment(s): NIDDM type II, neuropathy bilateral feet, CKD stage III, UTIs, CHANDU with CPap, bilateral lower leg edema, ulcerative colitis, benign colon pollyp, arthritis in multiple joints/chronic pain, unsteady gait, R rotator cuff repair/physical therapy increased ROM but now has L shoulder pain/limited ROM, [place] bilaterally, glaucoma bilateral eyes. History of Any Multi-Drug Resistant Organisms: None Reported Past Surgical History: Cholecystectomy, Orthopedic Surgery Additional Past Surgical History / Comment(s): R wrist ganglion cystectomy, R wrist ganglion cystectomy, L shoulder bone removed, colonoscopies Past Anesthesia/Blood Transfusion Reactions: Motion Sickness Smoking Status: Never smoker - Past Family History Mother Family Medical History: Renal Disease Additional Family Medical History / Comment(s): Mother of renal failure. Father Family Medical History: Myocardial Infarction ([place]) Additional Family Medical History / Comment(s): Father of a [place] at the age of 75 yrs. He had his first [place] about age 65yrs. Medications and Allergies Home Medications Medication Instructions Recorded Confirmed Type Levothyroxine Sodium [Synthroid] 125 mcg PO DAILY 07/10/15 01/06/22 History Atorvastatin [Lipitor] 40 mg PO HS 08/15/18 01/06/22 History atenoloL [Tenormin] 25 mg PO BID 08/15/18 01/06/22 History Potassium Chloride [K-Tab ER] 40 meq PO HS 11/19/18 01/06/22 History Acetaminophen with Codeine 1 tab PO DAILY PRN 01/06/22 01/06/22 History [Tylenol w/codeine #3] Cholecalciferol [Vitamin D3 (25 50 mcg PO DAILY 01/06/22 01/06/22 History Mcg = 1000 Iu)] Dulaglutide [Trulicity] 0.75 mg SQ TU 01/06/22 01/06/22 History Furosemide [Lasix] 40 mg PO BID 01/06/22 01/06/22 History Ipratropium-Albuterol Nebulize 3 ml INHALATION RT-QID PRN 01/06/22 01/06/22 History [Duoneb 0.5 mg-3 mg/3 ml Soln] Levofloxacin [Levaquin] 500 mg PO DAILY 01/06/22 01/06/22 History Omeprazole 20 mg PO HS 01/06/22 01/06/22 History Zinc 50 mg PO DAILY 01/06/22 01/06/22 History Allergies Allergy/AdvReac Type Severity Reaction Status Date / Time sulfamethoxazole Allergy Rash/Hives Verified 01/06/22 11:34 [From Bactrim] trimethoprim [From Bactrim] Allergy Rash/Hives Verified 01/06/22 11:34 ibuprofen [From Motrin] AdvReac Rash/Hives Verified 01/06/22 11:34 Physical Exam Vitals: Vital Signs Temp Pulse Resp BP Pulse Ox 01/08/22 11:35 98.0 F 79 18 129/76 94 L 01/08/22 08:51 74 117/72 95 01/08/22 05:43 98.2 F 89 18 131/79 97 01/07/22 19:27 18 01/07/22 19:04 98.5 F 80 18 132/71 97 Intake and Output 01/07/22 01/08/22 01/08/22 22:59 06:59 14:59 Intake Total 925 925 Balance 925 925 Intake: Intake, IV Titration 925 925 Amount Ampicillin-Sulbactam 1.5 100 100 gm In Sodium Chloride 0.9 % 50 ml @ 100 mls/hr IVPB Q8HR [facility] Rx#:[id number] Sodium Chloride 0.9% 1, 825 825 000 ml @ 75 mls/hr IV . [id number] [facility] Rx#:[id number] Other: Voiding Method Toilet Toilet # Voids 4 - Constitutional General appearance: average body habitus - EENT Eyes: EOMI, PERRLA Ears: bilateral: normal - Neck Neck: normal ROM Carotids: bilateral: upstroke normal Thyroid: bilateral: normal size - Respiratory Respiratory: bilateral: CTA - Cardiovascular Rhythm: regular Heart sounds: normal: S1, S2 - Gastrointestinal General gastrointestinal: normal bowel sounds - Integumentary Integumentary: normal turgor - Neurologic Neurologic: CNII-XII intact - Musculoskeletal Musculoskeletal: gait normal, generalized weakness, strength equal bilaterally - Psychiatric Psychiatric: A&O x's 3, appropriate affect, intact judgment & insight Results - Laboratory Findings CBC and BMP: 01/07/22 07:10 01/07/22 07:10 Abnormal lab findings: Abnormal Labs 01/06/22 01/06/22 01/06/22 11:26 14:36 14:36 WBC MCHC Immature Gran # Neutrophils # Potassium 3.4 L BUN BUN/Creatinine Ratio Glucose 156 H POC Glucose (mg/dL) 142 H Hemoglobin A1c 6.4 H Total Bilirubin 1.6 H AST 63 H Alkaline Phosphatase 302 H Total Protein Albumin Ur Leukocyte Esterase Urine WBC Ur Squamous Epith Cells Calcium Oxalate Crystal Urine Bacteria Hyaline Casts Urine Mucus 01/06/22 01/06/22 01/06/22 14:36 16:40 17:25 WBC MCHC Immature Gran # Neutrophils # Potassium BUN BUN/Creatinine Ratio Glucose POC Glucose (mg/dL) 129 H Hemoglobin A1c 6.5 H Total Bilirubin AST Alkaline Phosphatase Total Protein Albumin Ur Leukocyte Esterase Small H Urine WBC 11 H Ur Squamous Epith Cells 6 H Calcium Oxalate Crystal Occasional H Urine Bacteria Occasional H Hyaline Casts 9 H Urine Mucus Occasional H 01/06/22 01/07/22 01/07/22 20:25 07:10 07:10 WBC 12.17 H MCHC 31.3 L Immature Gran # 0.06 H Neutrophils # 8.36 H Potassium BUN 8.7 L BUN/Creatinine Ratio 9.23 L Glucose 168 H POC Glucose (mg/dL) 147 H Hemoglobin A1c Total Bilirubin AST Alkaline Phosphatase 284 H Total Protein 6.0 L Albumin 3.7 L Ur Leukocyte Esterase Urine WBC Ur Squamous Epith Cells Calcium Oxalate Crystal Urine Bacteria Hyaline Casts Urine Mucus 01/07/22 01/07/22 01/07/22 07:17 11:41 17:17 WBC MCHC Immature Gran # Neutrophils # Potassium BUN BUN/Creatinine Ratio Glucose POC Glucose (mg/dL) 162 H 128 H 150 H Hemoglobin A1c Total Bilirubin AST Alkaline Phosphatase Total Protein Albumin Ur Leukocyte Esterase Urine WBC Ur Squamous Epith Cells Calcium Oxalate Crystal Urine Bacteria Hyaline Casts Urine Mucus 01/08/22 01/08/22 06:58 11:38 WBC MCHC Immature Gran # Neutrophils # Potassium BUN BUN/Creatinine Ratio Glucose POC Glucose (mg/dL) 123 H 146 H Hemoglobin A1c Total Bilirubin AST Alkaline Phosphatase Total Protein Albumin Ur Leukocyte Esterase Urine WBC Ur Squamous Epith Cells Calcium Oxalate Crystal Urine Bacteria Hyaline Casts Urine Mucus - Diagnostic Findings Chest x-ray: report reviewed, image reviewed (Finding as noted above) Assessment and Plan Assessment: Acute COPD exacerbation/asthma exacerbation Chronic persistent cough appeared to be multifactorial likely related to intrinsic asthma along with some component of GERD and chronic sinusitis Tracheobronchitis UTI with sepsis Back pain likely related to pyelonephritis versus muscle strain Hypertension hypertensive cardiovascular disease Dyslipidemia Diabetes mellitus Hypothyroidism GERD and peptic ulcer disease Plan: Continue bronchodilators Continue IV steroids Breathing treatments Deep breathing exercise incentive spirometry Increase activity as tolerated Continue IV antibiotics Follow-up on urine culture Further workup for ALLERGIC asthma as outpatient which will include labs for ALLERGIC asthma and PFTs Time with Patient: Greater than 30
--- NOTE | 2022-01-08 14:40 | CT ---
EXAMINATION TYPE: CT chest wo con DATE OF EXAM: 01/08/2022 COMPARISON: 10/18/2020 HISTORY: Cough CT DLP: 448.8 mGycm Automated exposure control for dose reduction was used. Images obtained from the thoracic inlet to the diaphragm with no contrast. The lungs are clear of inf iltrate. There is no pleural effusion. No evidence of a pulmonary mass. There are clips from cholecys tectomy. Heart size is normal. There is no pericardial effusion. The sternum is intact. Thoracic vertebra appear intact. No compression fracture. There is a mild thor acic dextroscoliosis. There is coronary artery calcification. IMPRESSION: No active cardiopulmonary disease. Atherosclerotic vascular disease. Stable 4 mm nodule in the subple ural posterior left lung compared to the old exam.
[2022-01-08] MEDS: methylPREDNISolone SOD SUCCI 40 MG/ML 1 ML VIAL IV SCH (15:29)
[2022-01-08 16:59] LABS: Glucose,Whole Blood 143 mg/dL (75-99)
[2022-01-08] MEDS: ATORVASTATIN 40 MG TAB PO SCH (20:30)
[2022-01-08] MEDS: PANTOPRAZOLE 40 MG TABLET PO SCH (20:30)
[2022-01-08] MEDS: POTASSIUM CHLORIDE ER 20 MEQ TAB.ER PO SCH (20:30)
[2022-01-08 21:45] LABS: Glucose,Whole Blood 272 mg/dL (75-99)
[2022-01-09] MEDS: AMPICILLIN-SULBACTAM 1.5 GM in SODIUM CHLORIDE 0.9% 50 ML IVPB SCH ×3 (00:07→16:41)
[2022-01-09] MEDS: methylPREDNISolone SOD SUCCI 40 MG/ML 1 ML VIAL IV SCH ×3 (00:07→16:41)
[2022-01-09] MEDS: SODIUM CHLORIDE 0.9% 1,000 ML IV SCH ×2 (00:08→17:18)
[2022-01-09] MEDS: LEVOTHYROXINE 125 MCG TAB PO SCH (05:27)
[2022-01-09] MEDS: FUROSEMIDE 40 MG TAB PO SCH ×2 (07:37→16:41)
[2022-01-09] MEDS: CHOLECALCIFEROL 25 MCG (1000 IU) TABLET PO SCH (07:37)
[2022-01-09] MEDS: atenoloL 25 MG TAB PO SCH (07:38)
[2022-01-09 07:43] LABS: Glucose,Whole Blood 212 mg/dL (75-99)
[2022-01-09 09:06] LABS: Basophils # (A) 0.03 X 10*3/uL (0.00-0.10); Basophils % (A) 0.2 %; Eosinophils # (A) 0 X 10*3/uL (0.04-0.35); Eosinophils % (A) 0 %; HCT 39.1 % (37.2-46.3); HGB 12.4 g/dL (12.0-15.0); Immature Grans, Automated 1.1 %; Lymphocytes # (A) 1.11 X 10*3/uL (0.90-5.00); Lymphocytes % (A) 8.1 %; MCH 28.2 pg (27.0-32.0); MCHC 31.7 g/dL (32.0-37.0); MCV 89.1 fL (80.0-97.0); Mean Platelet Volume 10.3 fL (9.5-12.2); Monocytes # (A) 0.12 X 10*3/uL (0.20-1.00); Monocytes % (A) 0.9 %; NRBC Per 100 WBC 0 /100 WBCS (0.0-0.0); Neutrophils % (A) 89.7 %; Platelet Count 305 X 10*3/uL (140-440); RBC 4.39 X 10*6/uL (4.10-5.20); RDW 13.3 % (11.5-14.5); WBC 13.71 X 10*3/uL (4.50-10.00)
[2022-01-09 10:01] LABS: African American GFR (CKD) 71.9 (60.0-200.0); Albumin 3.7 g/dL (3.8-4.9); Albumin/Globulin Ratio 1.55 (1.60-3.17); Anion Gap 14.7 mmol/L (10.00-18.00); BUN/Creat Ratio 12.65 Ratio (12.00-20.00); Blood Urea Nitrogen 11.6 mg/dL (9.0-27.0); Calcium 9.5 mg/dL (8.7-10.3); Carbon Dioxide 21.4 mmol/L (20.0-27.5); Globulin 2.4 g/dL (1.6-3.3); Potassium 3.6 mmol/L (3.5-5.5); Total Bilirubin 0.5 mg/dL (0.30-1.20)
[2022-01-09 12:44] VITALS: BP 138/73; PULSE 73; RESP 16; TEMP 97.3
[2022-01-09 12:50] LABS: Glucose,Whole Blood 341 mg/dL (75-99)
--- NOTE | 2022-01-09 13:27 | CDI ---
Documentation Clarification Form Date: 01/09/2022 01:11:08 PM From: Kusum Key RN CCDS Admit Date: 01/06/2022 10:58:00 AM Patient Name: Krysta Agrawal Visit Number: [id number] Discharge Date: ATTENTION: The Clinical Documentation Specialists (CDI) and [facility] Coding Staff appreciate your assistance in clarifying documentation. Please respond to the clarification below the line at the bottom and electronically sign. The CDI & [facility] Coding staff will review the response and follow-up if needed. Please note: Queries are made part of the Legal Health Record. If you have any questions, please contact the author of this message via ITS. Dr. Oswaldo Espinoza is documented 01/07, Pulmonary consult which may lack sufficient clinical evidence/support in the medical record. Additional clarification is requested. History/Risk Factors: 71-yearold patient presents to the ED for direct admit for nausea, vomiting and left flank pain. Diagnosed outpatient with UTI waiting on cultures. Medical History: COPD, Asthma, recent UTI and DM. Clinical Indicators: VSS: 01/06 B/P 152/70; HR 80; Temp 97.9 F Oral; RR 16 SpO2 94% room air LABS: 01/06 Wbc 10.2; K 3.4; Glucose 156; Hgb A1C 6.5; Total Bilirubin 1.6; AST 63; Alkaline Phosphate 302 UA: 01/06 Leukoycte esterase small: Rbc small: Wbc 11 Urine culture 01/06 Negative Treatment: 01/06 to current Ampicillin 1.5gm IVPB Q8HR. Please clarify if Sepsis is a valid diagnosis? [ ] Yes, Sepsis is present as evidence by (additional clinical support): [ ] No, Sepsis is ruled out [ ] Other (please specify diagnosis) [ ] Unable to determine (Template Last Revised: November 2020) MTDD
--- NOTE | 2022-01-09 18:17 | P.PN ---
Subjective Progress Note Date: 01/09/22 Principal diagnosis: Acute COPD exacerbation/asthma exacerbation Chronic persistent cough appeared to be multifactorial likely related to intrinsic asthma along with some component of GERD and chronic sinusitis Tracheobronchitis UTI with sepsis Back pain likely related to pyelonephritis versus muscle strain Hypertension hypertensive cardiovascular disease Dyslipidemia Diabetes mellitus Hypothyroidism GERD and peptic ulcer disease 01/09/2022, patient seen eval examined during the rounds labs reviewed medications reviewed care plan discussed, respiratory status the slightly better less cough and congestion is present so as the back pain patient predominantly have a pain in the sacroiliac area on the left side, patient remains on IV steroids which seems to be helping Patient is a 71-year-old female prior history of COPD presented into the hospital with non-resolving urinary tract infection and pyelonephritis, patient has been treated outpatient basis with oral antibiotics without any significant improvement worsening of back pain has been noted along with ongoing cough patient was seen in primary care's office with ongoing developing nausea and flank pain advise to be admitted into the hospital her urine culture is pending. She underwent computed tomography scan of the M Don pelvis followed by chest x- ray and lumbar spine x-ray, chest x-ray is unremarkable, computed tomography scan of the abdominal and pelvis no acute pathology and 5, mild DJD changes identified on CT of the lumbar spine, labs reviewed white cell count is 12,000 hemoglobin and hematocrit is 12 and 40, platelet count is 10 2000, chemistry within normal limit glucose slightly elevated at 160 patient is gently being rehydrated with broad-spectrum antibiotics with Unasyn also on bronchodilator, she has been on IV steroids as well Patient is a nonsmoker she has ongoing cough for last 6 months which is on and off usually respond to bronchodilator. She does have on and off chronic sinus problem however denies any allergen present at home had significant symptoms of GERD in the past but has been controlled with Protonix lately Objective - Vital Signs Vital signs: Vital Signs Temp 97.3 F L 01/09/22 12:42 Pulse 73 01/09/22 12:42 Resp 16 01/09/22 12:42 BP 138/73 01/09/22 12:42 Pulse Ox 95 01/09/22 12:42 Intake & Output 01/08/22 01/09/22 01/09/22 18:59 06:59 18:59 Intake Total 900 1460 Balance 900 1460 Intake: Intake, IV Titration 900 900 Amount Ampicillin-Sulbactam 1.5 50 gm In Sodium Chloride 0.9 % 50 ml @ 100 mls/hr IVPB Q8HR [facility] Rx#:[id number] Sodium Chloride 0.9% 1, 900 850 000 ml @ 75 mls/hr IV . [id number] [facility] Rx#:[id number] Oral 560 Other: Voiding Method Toilet Toilet Toilet # Voids 2 - Exam - Constitutional General appearance: average body habitus - EENT Eyes: EOMI, PERRLA Ears: bilateral: normal - Neck Neck: normal ROM Carotids: bilateral: upstroke normal Thyroid: bilateral: normal size - Respiratory Respiratory: bilateral: CTA - Cardiovascular Rhythm: regular Heart sounds: normal: S1, S2 - Gastrointestinal General gastrointestinal: normal bowel sounds - Integumentary Integumentary: normal turgor - Neurologic Neurologic: CNII-XII intact - Musculoskeletal Musculoskeletal: gait normal, generalized weakness, strength equal bilaterally - Psychiatric Psychiatric: A&O x's 3, appropriate affect, intact judgment & insight - Labs CBC & Chem 7: 01/09/22 06:05 01/09/22 06:05 Labs: Abnormal Lab Results - Last 24 Hours (Table) 01/08/22 01/09/22 01/09/22 Range/Units 21:42 06:05 06:05 WBC 13.71 H (4.50-10.00) X 10*3/uL MCHC 31.7 L (32.0-37.0) g/dL Immature Gran # 0.15 H (0.00-0.04) X 10*3/uL Neutrophils # 12.30 H (1.80-7.70) X 10*3/uL Monocytes # 0.12 L (0.20-1.00) X 10*3/uL Eosinophils # 0 L (0.04-0.35) X 10*3/uL Glucose 231 H (70-110) mg/dL POC Glucose (mg/dL) 272 H (75-99) mg/dL Alkaline Phosphatase 230 H (41-126) U/L Total Protein 6.0 L (6.2-8.2) g/dL Albumin 3.7 L (3.8-4.9) g/dL Albumin/Globulin Ratio 1.55 L (1.60-3.17) g/dL 01/09/22 01/09/22 Range/Units 07:42 12:48 WBC (4.50-10.00) X 10*3/uL MCHC (32.0-37.0) g/dL Immature Gran # (0.00-0.04) X 10*3/uL Neutrophils # (1.80-7.70) X 10*3/uL Monocytes # (0.20-1.00) X 10*3/uL Eosinophils # (0.04-0.35) X 10*3/uL Glucose (70-110) mg/dL POC Glucose (mg/dL) 212 H 341 H (75-99) mg/dL Alkaline Phosphatase (41-126) U/L Total Protein (6.2-8.2) g/dL Albumin (3.8-4.9) g/dL Albumin/Globulin Ratio (1.60-3.17) g/dL Assessment and Plan Assessment: Acute COPD exacerbation/asthma exacerbation Chronic persistent cough appeared to be multifactorial likely related to intrinsic asthma along with some component of GERD and chronic sinusitis Tracheobronchitis Sacroiliitis left side UTI with sepsis Back pain likely related to pyelonephritis versus muscle strain Hypertension hypertensive cardiovascular disease Dyslipidemia Diabetes mellitus Hypothyroidism GERD and peptic ulcer disease Plan: Continue bronchodilators Continue IV steroids, can be changed to oral at the time of discharge Breathing treatments Deep breathing exercise incentive spirometry Increase activity as tolerated Continue IV antibiotics, can be changed to oral antibiotic discharge Follow-up on urine culture Continue anti-inflammatory agent for sacroiliitis Further workup for ALLERGIC asthma as outpatient which will include labs for ALLERGIC asthma and PFTs Time with Patient: Greater than 30
[2022-01-10] MEDS ORDERED: Dulaglutide [Trulicity] 0.75 MG/0.5 ML Each SQ SCH (09:00)
--- NOTE | 2022-01-16 08:01 | CDI ---
Documentation Clarification Form Date: 01/09/2022 01:11:08 PM From: Kusum Key RN CCDS Admit Date: 01/06/2022 10:58:00 AM Patient Name: Krysta Agrawal Visit Number: [id number] Discharge Date: ATTENTION: The Clinical Documentation Specialists (CDI) and [facility] Coding Staff appreciate your assistance in clarifying documentation. Please respond to the clarification below the line at the bottom and electronically sign. The CDI & [facility] Coding staff will review the response and follow-up if needed. Please note: Queries are made part of the Legal Health Record. If you have any questions, please contact the author of this message via ITS. Dr. Oswaldo Espinoza is documented 01/07, Pulmonary consult which may lack sufficient clinical evidence/support in the medical record. Additional clarification is requested. History/Risk Factors: 71-yearold patient presents to the ED for direct admit for nausea, vomiting and left flank pain. Diagnosed outpatient with UTI waiting on cultures. Medical History: COPD, Asthma, recent UTI and DM. Clinical Indicators: VSS: 01/06 B/P 152/70; HR 80; Temp 97.9 F Oral; RR 16 SpO2 94% room air LABS: 01/06 Wbc 10.2; K 3.4; Glucose 156; Hgb A1C 6.5; Total Bilirubin 1.6; AST 63; Alkaline Phosphate 302 UA: 01/06 Leukoycte esterase small: Rbc small: Wbc 11 Urine culture 01/06 Negative Treatment: 01/06 to current Ampicillin 1.5gm IVPB Q8HR. Please clarify if Sepsis is a valid diagnosis? [ ] Yes, Sepsis is present as evidence by (additional clinical support): [ ] No, Sepsis is ruled out [ ] Other (please specify diagnosis) [ ] Unable to determine (Template Last Revised: November 2020) MTDD
--- NOTE | 2022-01-16 13:01 | PN ---
PROGRESS NOTE Sepsis is a valid diagnosis. MMODL / IJN: [id number] /
== END 2022-01-09 18:50 | disposition home or self-care (01) | DRG 872 ==
LOC: 5NMEDONC 10:58
PROVIDERS: ADMIT Family Medicine; ATTEND Family Medicine
DX: A41.9 Sepsis, unspecified organism (principal); J44.1 Chronic obstructive pulmonary disease with (acute) exacerbation; J45.901 Unspecified asthma with (acute) exacerbation; K51.90 Ulcerative colitis, unspecified, without complications; N12 Tubulo-interstitial nephritis, not specified as acute or chronic; E03.9 Hypothyroidism, unspecified; E11.22 Type 2 diabetes mellitus with diabetic chronic kidney disease; E78.5 Hyperlipidemia, unspecified; H91.90 Unspecified hearing loss, unspecified ear; I13.10 Hypertensive heart and chronic kidney disease without heart failure, with stage 1 through stage 4 chronic kidney disease, or unspecified chronic kidney disease; K21.9 Gastro-esophageal reflux disease without esophagitis; Z87.11 Personal history of peptic ulcer disease; M46.1 Sacroiliitis, not elsewhere classified; N18.30 Chronic kidney disease, stage 3 unspecified; H40.9 Unspecified glaucoma; G47.33 Obstructive sleep apnea (adult) (pediatric); Z98.890 Other specified postprocedural states; Z90.49 Acquired absence of other specified parts of digestive tract; M25.512 Pain in left shoulder; Z82.49 Family history of ischemic heart disease and other diseases of the circulatory system; Z79.899 Other long term (current) drug therapy; Z79.890 Hormone replacement therapy; J32.9 Chronic sinusitis, unspecified; Z88.6 Allergy status to analgesic agent; Z88.2 Allergy status to sulfonamides; Z87.440 Personal history of urinary (tract) infections
CPT/HCPCS: 71046; 71250; 72131; 74176; 80053; 81001; 83036; 83605; 83690; 85025; 87086; 87502

== ENCOUNTER 2022-06-26 12:29 | Emergency (ER) | payer MEDICARE, OTHER ==
[2022-06-26 12:35] VITALS: RESP 18
[2022-06-26] MEDS ORDERED: HYDROcodone/APAP 5-325MG 1 EACH TAB PO STA (13:54)
--- NOTE | 2022-06-26 14:31 | ED ---
General Adult HPI - General Chief complaint: Extremity Problem,Nontraumatic Stated complaint: trouble walking Time Seen by Provider: 06/26/22 13:37 Source: patient, RN notes reviewed, old records reviewed Mode of arrival: wheelchair Limitations: no limitations - History of Present Illness Initial comments: Patient is a 72-year-old female with past medical history remarkable for chronic bilateral knee arthritis who presents emergency Department with acutely worsening right knee pain. Denies any trauma. States is similar to chronic pain, however slightly worse. Worse with movement. Has received injections in her knee previously with minimal improvement. His incision for worsening symptoms. Did receive steroid injections last week which had minimal improvement. Is uncertain what is causing this. States that what is somewhat more atypical today is that she is having posterior right knee pain. Denies any swelling. Denies any skin changes. Denies any fevers or chills. Denies any warmth of the knee. There is decreased movement which is somewhat chronic secondary to bad osteoarthritis. No history of blood clots in herself or family members. Presents for further evaluation this time. His no chest pain, shortness of breath. No fevers, chills, cough. No other acute complaints at this time. Denies any trauma. Is not on blood thinners. - Related Data Home Medications Medication Instructions Recorded Confirmed Atorvastatin [Lipitor] 40 mg PO HS 08/15/18 06/26/22 atenoloL [Tenormin] 25 mg PO BID 08/15/18 06/26/22 Potassium Chloride [K-Tab ER] 40 meq PO HS 11/19/18 06/26/22 Acetaminophen with Codeine 1 tab PO DAILY PRN 01/06/22 06/26/22 [Tylenol w/codeine #3] Cholecalciferol [Vitamin D3 (25 50 mcg PO DAILY 01/06/22 06/26/22 Mcg = 1000 Iu)] Dulaglutide [Trulicity] 0.75 mg SQ TU 01/06/22 06/26/22 Furosemide [Lasix] 40 mg PO BID 01/06/22 06/26/22 Ipratropium-Albuterol Nebulize 3 ml INHALATION RT-QID PRN 01/06/22 06/26/22 [Duoneb 0.5 mg-3 mg/3 ml Soln] Omeprazole 20 mg PO HS 01/06/22 06/26/22 Zinc 50 mg PO DAILY 01/06/22 06/26/22 Clotrimazole/Betameth Cream 1 applic TOPICAL BID 06/26/22 06/26/22 [Lotrisone] Levothyroxine Sodium [Synthroid] 137 mcg PO AC-BRKFST 06/26/22 06/26/22 Allergies Allergy/AdvReac Type Severity Reaction Status Date / Time ibuprofen [From Motrin] Allergy Rash/Hives Verified 06/26/22 14:38 sulfamethoxazole Allergy Rash/Hives Verified 06/26/22 14:38 [From Bactrim] tetanus and diphtheria Allergy Rash/Hives Verified 06/26/22 14:38 toxoids trimethoprim [From Bactrim] Allergy Rash/Hives Verified 06/26/22 14:38 Review of Systems ROS Statement: Those systems with pertinent positive or pertinent negative responses have been documented in the HPI. Review of Systems: CONST: Denies fever EYES: Denies blurry vision ENT: Denies nasal congestion C/V: Denies Chest pain RESP: Denies shortness of breath GI: Denies abdominal pain : Denies dysuria SKIN: Denies rash. MSK: Endorses right knee pain NEURO: Denies headache ROS Other: All systems not noted in ROS Statement are negative. Past Medical History Past Medical History: Diabetes Mellitus, Eye Disorder, Hearing Disorder / Deafness, Hyperlipidemia, Hypertension, Osteoarthritis (OA), Renal Disease, Sleep Apnea/CPAP/BIPAP, Thyroid Disorder Additional Past Medical History / Comment(s): NIDDM type II, neuropathy bilateral feet, CKD stage III, UTIs, CHANDU with CPap, bilateral lower leg edema, ulcerative colitis, benign colon pollyp, arthritis in multiple joints/chronic pain, unsteady gait, R rotator cuff repair/physical therapy increased ROM but now has L shoulder pain/limited ROM, [place] bilaterally, glaucoma bilateral eyes. History of Any Multi-Drug Resistant Organisms: None Reported Past Surgical History: Cholecystectomy, Orthopedic Surgery Additional Past Surgical History / Comment(s): R wrist ganglion cystectomy, R wrist ganglion cystectomy, L shoulder bone removed, colonoscopies Past Anesthesia/Blood Transfusion Reactions: Motion Sickness Past Psychological History: No Psychological Hx Reported Smoking Status: Never smoker - Past Family History Mother Family Medical History: Renal Disease Additional Family Medical History / Comment(s): Mother of renal failure. Father Family Medical History: Myocardial Infarction (ND) Additional Family Medical History / Comment(s): Father of a ND at the age of 75 yrs. He had his first ND about age 65yrs. General Exam - General Exam Comments Initial Comments: General: Appears in no acute distress. HEAD: Normal with no signs of head trauma. EYES: EOMI ENT: Hearing grossly intact RESPIRATORY: Clear breath sounds bilaterally. No wheezes, rales, or rhonchi. C/V: Regular rate and rhythm. S1 and S2 auscultated, no edema, peripheral pulses 2+ and intact throughout ABD: Abd is soft, nontender, nondistended EXT: Reduced range of motion of the right knee. No obvious deformity. Knee is enlarged with what appears to be chronic vascular arthritic changes. Tetanus palpation over bilateral joint lines in the popliteal space. Neurovascular intact in the right lower extremity. Somewhat reduced range of motion secondary to pain in the right knee. No warmth. No erythema. No skin changes. SKIN: No rashes or lesions observed on exposed skin. NEURO: Alert and oriented 4. No focal deficits. Limitations: no limitations Course Vital Signs 06/26/22 06/26/22 06/26/22 12:30 13:38 15:27 Temperature 98.3 F Pulse Rate 89 79 68 Respiratory 18 18 18 Rate Blood Pressure 141/80 145/73 130/73 O2 Sat by Pulse 95 96 97 Oximetry 06/26/22 06/26/22 16:35 16:48 Temperature 98.6 F Pulse Rate 65 Respiratory 18 Rate Blood Pressure 138/73 O2 Sat by Pulse 96 Oximetry Medical Decision Making - Medical Decision Making Based on the patient's presentation and physical exam, I do suspect she is likely experiencing acute on chronic pain secondary to arthritis but cannot rule out the possibility of DVT at this time. She has no other findings on exam. Vital signs are within normal limits. Did offer her a duplex of the right lower extremity as well as an x-ray of the knee. She was in agreement this plan. Will be given analgesia medications. She does have a history of known severe chronic osteoarthritis in bilateral knees. This is similar to her typical chronic pain. X-ray shows a knee effusion which is likely chronic, as the patient states she does have a history of him. Duplex showed no signs of DVT. I discussed results of the patient. She will follow-up with her PCP. Will be given a dose of the steroid as well as instructions to rest, ice, use NSAIDs at home for knee pain. She was in agreement this plan. I did recommend that she obtain a orthopedic referral through her PCP at her request. She was in agreement with this plan. She has pain medications at home for analgesia. I instructed the patient to follow up with their PCP in the next 1-3 days. I explained that the patient should return to the emergency department if they experience any worsening symptoms. Strict return precautions were discussed with the patient. The patient expressed understanding of these instructions. I answered all questions that the patient had. The patient was discharged home in good condition with their prescriptions and follow up information. Disposition Clinical Impression: Osteoarthritis, Knee pain Disposition: HOME SELF-CARE Condition: Good Instructions (If sedation given, give patient instructions): Knee Pain (ED) Is patient prescribed a controlled substance at d/c from ED?: No Referrals: Oswaldo Marin MD [Primary Care Provider] - 1-2 days Time of Disposition: 16:20
--- NOTE | 2022-06-26 14:44 | XR ---
EXAMINATION TYPE: XR knee complete RT DATE OF EXAM: 06/26/2022 CLINICAL HISTORY: Pain. TECHNIQUE: Three views of the pain knee are obtained. COMPARISON: None. FINDINGS: There is no acute fracture/dislocation evident in right knee. Severe narrowing and spurrin g medial tibial femoral compartment. Mild to moderate narrowing and spurring patellofemoral compartme nt. Moderate size suprapatellar joint effusion. IMPRESSION: As above.
--- NOTE | 2022-06-26 16:10 | US ---
EXAMINATION TYPE: US venous doppler duplex LE RT DATE OF EXAM: 06/26/2022 3:57 PM COMPARISON: NONE CLINICAL HISTORY: pain, eval for dvt. right leg pain and edema SIDE PERFORMED: right TECHNIQUE: The lower extremity deep venous system is examined utilizing real time linear array sonog lorenzo with graded compression, doppler sonography and color-flow sonography. VESSELS IMAGED: Common Femoral Vein Deep Femoral Vein Greater Saphenous Vein * Femoral Vein Popliteal Vein Small Saphenous Vein * Proximal Calf Veins (* superficial vessels) Right Leg: no evidence of DVT at this time. ROULEAUX flow noted Grayscale, color doppler, spectral doppler imaging performed of the deep veins of the right lower ext remity. There is normal flow, compressibility, vascular waveforms. IMPRESSION: No ultrasound evidence for acute DVT in the right lower extremity.
[2022-06-26 16:36] VITALS: BP 138/73; PULSE 65
[2022-06-26 16:50] VITALS: TEMP 98.6
== END 2022-06-26 16:49 | disposition home or self-care (01) ==
LOC: EC 12:29
DX: M17.0 Bilateral primary osteoarthritis of knee (principal); I12.9 Hypertensive chronic kidney disease with stage 1 through stage 4 chronic kidney disease, or unspecified chronic kidney disease; E11.22 Type 2 diabetes mellitus with diabetic chronic kidney disease; N18.30 Chronic kidney disease, stage 3 unspecified; E78.5 Hyperlipidemia, unspecified; M19.90 Unspecified osteoarthritis, unspecified site; E07.9 Disorder of thyroid, unspecified; Z79.890 Hormone replacement therapy; Z79.899 Other long term (current) drug therapy; Z88.6 Allergy status to analgesic agent; Z88.2 Allergy status to sulfonamides; Z88.7 Allergy status to serum and vaccine
CPT/HCPCS: 99284

== ENCOUNTER 2022-09-27 06:23 | Day surgery (SDC) | payer MEDICARE, OTHER ==
[2022-09-27] MEDS ORDERED: LACTATED RINGERS 1,000 ML IV SCH (06:40)
[2022-09-27 06:56] VITALS: RESP 18; TEMP 96.9
[2022-09-27] MEDS ORDERED: LIDOCAINE 1% (10MG/ML) FOR IV START INTRADERMA ONE (07:02)
[2022-09-27 07:09] LABS: Glucose,Whole Blood 115 mg/dL (70-110)
[2022-09-27] MEDS ORDERED: LIDOCAINE 2% INJ 20 MG/ML (2 ML VIAL) ONE (07:36)
[2022-09-27] MEDS ORDERED: PROPOFOL 10 MG/ML 20 ML VIAL IV ONE (07:36)
--- NOTE | 2022-09-27 07:53 | P.PCN ---
Date of Procedure: 09/27/22 Procedure(s) Performed: BRIEF HISTORY: Patient is a 72-year-old pleasant white female scheduled for an elective colonoscopy as a part of surveillance of long-standing history of ulcerative colitis diagnosed 20 years ago. He is in clinical remission PROCEDURE PERFORMED: Colonoscopy with random biopsy. PREOPERATIVE DIAGNOSIS: Long-standing history of ulcerative colitis. IV sedation per Anesthesia. PROCEDURE: After informed consent was obtained, the patient, was brought into the endoscopy unit. IV sedation was administered by Anesthesia under continuous monitoring. Digital rectal examination was normal. Initially the Olympus CF-160 flexible video colonoscope was then inserted in the rectum, gradually advanced into the cecum without any difficulty. Careful examination was performed as the scope was gradually being withdrawn. Ileocecal valve and the appendiceal orifice were visualized and appeared normal. Prep was excellent. Mucosa of the cecum, ascending colon, transverse colon, descending colon, sigmoid colon, and rectum appeared normal. Scattered sigmoidal reticulosis. Random biopsies were done from the cecum to rectum at every 10 cm into well. Retroflexion was performed in the rectum and no lesions were seen. The patient tolerated the procedure well. IMPRESSION: Normal-appearing colon from rectum to cecum with no evidence of colitis or colorectal neoplasia . Scattered sigmoid diverticulosis. RECOMMENDATIONS: Findings of this examination were discussed with the patient as well as a family. She was advised to follow with the biopsy results. If the biopsies do not reveal any evidence of dysplasia she can have a repeat colonoscopy in 2 years..
[2022-09-27 08:30] VITALS: BP 145/82; PULSE 74
== END 2022-09-27 08:44 | disposition home or self-care (01) ==
LOC: ORWHC2ENDO 06:23
PROVIDERS: ATTEND Internal Medicine Gastroenterology
DX: Z12.11 Encounter for screening for malignant neoplasm of colon (principal); K57.30 Diverticulosis of large intestine without perforation or abscess without bleeding; K51.90 Ulcerative colitis, unspecified, without complications
CPT/HCPCS: 45380; J2704; J2001; 88305

== ENCOUNTER → 2023-05-28 | Outpatient (CLI) | payer MEDICARE ==
--- NOTE | 2023-05-28 14:43 | BD ---
EXAMINATION TYPE: Axial Bone Density DATE OF EXAM: 05/28/2023 CLINICAL HISTORY: 73 years old Female. ICD-10 CODE: Z78.0 POST MENOPAUSAL WITHOUT HRT Height: 64 Weight: 214.3 FRAX RISK QUESTIONS: Alcohol (3 or more units per day): no Family History (Parent hip fracture): no Glucocorticoids (More than 3mos): no (Ex: prednisone, prednisolone, methylprednisolone, dexamethasone, and hydrocortisone). History of Fracture in Adulthood: no Secondary Osteoporosis: 1. Type 1 Diabetes: no 2. Hyperthyroidism: no 3. Menopause before 45: no 4. Malnutrition: no 5. Chronic liver disease: no Rheumatoid Arthritis: no Current Tobacco Use: no RISK FACTORS HISTORY OF: Surgery to Spine/Hip(right/left)/Wrist (right/left): no Family History of Osteoporosis: no Active: no Diet low in dairy products/other sources of calcium: no Postmenopausal woman: yes Lost more than 2 inches in height since high school: no MEDICATIONS: Thyroid Medications: levothyroxine How Lon years Additional History: EXAM MEASUREMENTS: Bone mineral densitometry was performed using the Catapulter System. Bone mineral density as measured about the Lumbar spine is: ----- L1-L4(G/cm2): 1.183 T Score Values are as follows: ----- L1: -1.3 ----- L2: -0.2 ----- L3: 0.8 ----- L4: 0.4 ----- L1-L4: 0.0 Z Score Values are as follows: ----- L1: -0.6 ----- L2: 0.5 ----- L3: 1.5 ----- L4: 1.1 ----- L1-L4: 0.7 Bone mineral density : baseline Bone mineral density about the R hip (g/cm2): 0.884 Bone mineral density about the L hip (g/cm2): 0.878 T Score values are as follows: -----R Neck: -1.7 -----L Neck: -1.6 -----R Total: -1.0 -----L Total: -1.0 Z Score values are as follows: -----R Neck: 0.0 -----L Neck: -0.1 -----R Total: -0.5 -----L Total: -0.4 Bone mineral density : baseline FRAX%s: The graph provided illustrates a 11.0% chance for a major osteoporotic fx and a 2.4% chance f or the hips probability for fx in 10 years time. IMPRESSION: Osteopenia (T Score between -2.5 and -1). There is slightly increased risk of fracture and the patient may be considered for treatment. Re-Screen 2-5 years. NOTE: T-SCORE=SD OF THE YOUNG ADULT MEAN.
== END | disposition home or self-care (01) ==
LOC: RADBDWWP 14:09
PROVIDERS: ATTEND Family Medicine
DX: M85.89 Other specified disorders of bone density and structure, multiple sites (principal); Z78.0 Asymptomatic menopausal state
CPT/HCPCS: 77080

== ENCOUNTER 2023-10-08 07:05 | Observation (INO) | payer MEDICARE, OTHER ==
[2023-10-08 07:18] LABS: Glucose,Whole Blood 174 mg/dL (70-110)
[2023-10-08] MEDS: ASPIRIN 81 MG PO STA (07:31)
--- NOTE | 2023-10-08 07:34 | ED ---
Chest Pain HPI - General Chief Complaint: Chest Pain Stated Complaint: chest pain Time Seen by Provider: 10/08/23 07:05 Source: patient, EMS, RN notes reviewed Mode of arrival: EMS Limitations: no limitations - History of Present Illness Initial Comments: 73-year-old female presents emergency Department with chief complaint of chest pain. Patient states that pain started this morning. She has been sick since before Shyla with cough and cold-like symptoms she was seen and was placed on steroids and another medication. Patient states that that has improved some she still has a residual cough she developed left sided chest pain radiated to her back. Patient states that she does have a history of diabetes and hypertension. Reports a fever no abdominal pain no headache - Related Data Home Medications Medication Instructions Recorded Confirmed Atorvastatin [Lipitor] 40 mg PO HS 08/15/18 09/27/22 atenoloL [Tenormin] 25 mg PO BID 08/15/18 09/27/22 Potassium Chloride [K-Tab ER] 40 meq PO HS 11/19/18 09/27/22 Acetaminophen with Codeine 1 tab PO DAILY PRN 01/06/22 09/27/22 [Tylenol w/codeine #3] Cholecalciferol [Vitamin D3 (25 50 mcg PO DAILY 01/06/22 09/27/22 Mcg = 1000 Iu)] Dulaglutide [Trulicity] 0.75 mg SQ TU 01/06/22 09/27/22 Furosemide [Lasix] 40 mg PO BID 01/06/22 09/27/22 Ipratropium-Albuterol Nebulize 3 ml INHALATION RT-QID PRN 01/06/22 09/27/22 [Duoneb 0.5 mg-3 mg/3 ml Soln] Zinc 50 mg PO DAILY 01/06/22 09/27/22 Levothyroxine Sodium [Synthroid] 137 mcg PO AC-BRKFST 06/26/22 09/27/22 Aspirin [Adult Low Dose Aspirin EC] 81 mg PO DAILY 09/22/22 09/27/22 Allergies Allergy/AdvReac Type Severity Reaction Status Date / Time ibuprofen [From Motrin] Allergy Rash/Hives Verified 09/27/22 06:50 sulfamethoxazole Allergy Rash/Hives Verified 09/27/22 06:50 [From Bactrim] tetanus and diphtheria Allergy Rash/Hives Verified 09/27/22 06:50 toxoids trimethoprim [From Bactrim] Allergy Rash/Hives Verified 09/27/22 06:50 Review of Systems ROS Statement: Those systems with pertinent positive or pertinent negative responses have been documented in the HPI. ROS Other: All systems not noted in ROS Statement are negative. EKG Findings - EKG Comments: EKG Findings:: EKG performed at 17:11 sinus rhythm with a rate of 85 MS 169/127 QT/QTC 403/445 - EKG Results: EKG: interpreted by LUZ Past Medical History Past Medical History: Diabetes Mellitus, Eye Disorder, Hearing Disorder / Deafness, Hyperlipidemia, Hypertension, Osteoarthritis (OA), Renal Disease, Sleep Apnea/CPAP/BIPAP, Thyroid Disorder Additional Past Medical History / Comment(s): NIDDM type II, neuropathy peg ateral feet, CKD stage III, UTIs, CHANDU with CPap, bilateral lower leg edema, ulcerative colitis, benign colon pollyp, arthritis in multiple joints/chronic pain, unsteady gait, R rotator cuff repair/physical therapy increased ROM EEK bilaterally, glaucoma bilateral eyes. History of Any Multi-Drug Resistant Organisms: None Reported Past Surgical History: Cholecystectomy, Orthopedic Surgery Additional Past Surgical History / Comment(s): R wrist ganglion cystectomy, R wrist ganglion cystectomy, L shoulder bone removed, colonoscopies Past Anesthesia/Blood Transfusion Reactions: Motion Sickness Past Psychological History: No Psychological Hx Reported Smoking Status: Never smoker - Past Family History Mother Family Medical History: Renal Disease Additional Family Medical History / Comment(s): Mother of renal failure. Father Family Medical History: Myocardial Infarction (NE) Additional Family Medical History / Comment(s): Father of a NE at the age of 75 yrs. He had his first NE about age 65yrs. General Exam Limitations: no limitations General appearance: alert, in no apparent distress Head exam: Present: atraumatic, normocephalic, normal inspection Eye exam: Present: normal appearance, PERRL, EOMI. Absent: scleral icterus, conjunctival injection, periorbital swelling Neck exam: Present: normal inspection. Absent: tenderness, meningismus, lymphadenopathy Respiratory exam: Present: normal lung sounds bilaterally. Absent: respiratory distress, wheezes, rales, rhonchi, stridor Cardiovascular Exam: Present: regular rate, normal rhythm, normal heart sounds. Absent: systolic murmur, diastolic murmur, rubs, gallop, clicks GI/Abdominal exam: Present: soft, normal bowel sounds. Absent: distended, tenderness, guarding, rebound, rigid Course Vital Signs 10/08/23 10/08/23 10/08/23 07:13 07:32 08:18 Temperature 97.9 F Pulse Rate 87 87 Respiratory 20 16 20 Rate Blood Pressure 168/94 168/94 O2 Sat by Pulse 98 97 Oximetry Chest Pain MDM - MDM Was pt. sent in by a medical professional or institution (, [facility], STATISTICAL CONSULTANT, urgent care, hospital, or senior care...) When possible be specific @ -No Did you speak to anyone other than the patient for history (EMS, parent, family, police, friend...)? What history was obtained from this source @ -EMS provided prehospital treatments, vitals. Did you review nursing and triage notes (agree or disagree)? Why? @ -I reviewed and agree with nursing and triage notes Were old charts reviewed (outside hosp., previous admission, EMS record, old EKG, old radiological studies, urgent care reports/EKG's, senior care records)? Report findings @ -No old charts were reviewed Differential Diagnosis (chest pain, altered mental status, abdominal pain women, abdominal pain men, vaginal bleeding, weakness, fever, dyspnea, syncope, headache, dizziness, GI bleed, back pain, seizure, CVA, palpatations, mental health, musculoskeletal)? @ -Differential Chest Pain: Stable Angina, Unstable Angina, STEMI, NSTEMI Aortic Dissection, Pneumothorax, Musculoskeletal, Esophageal Spasm GERD, Cholecystitis, Pancreatitis, Zoster, this is not meant to be an all-inclusive list. e EKG interpreted by me (3pts min.). @ -As above X-rays interpreted by me (1pt min.). @ -Chest x-ray shows no acute cardio pulmonary process is no evidence of pneumonia CT interpreted by me (1pt min.). @ -None done U/S interpreted by me (1pt. min.). @ -None done What testing was considered but not performed or refused? (CT, X-rays, U/S, labs)? Why? @ -None What meds were considered but not given or refused? Why? @ -None Did you discuss the management of the patient with other professionals (professionals i.e. , PA, STATISTICAL CONSULTANT, lab, RT, psych nurse, psych social worker, tile shader, teacher, chief executive officer, pillowcase cutter)? Give summary @ -[Dr. Carballo for admission for ACS rule out Was smoking cessation discussed for >3mins.? @ -No Was critical care preformed (if so, how long)? @ -No Were there social determinants of health that impacted care today? How? (Homelessness, low income, unemployed, alcoholism, drug addiction, transportation, low edu. Level, literacy, decrease access to med. care, long-term, rehab)? @ -No Was there de-escalation of care discussed even if they declined (Discuss DNR or withdrawal of care, Hospice)? DNR status @ -No What co-morbidities impacted this encounter? (DM, HTN, Smoking, COPD, CAD, Cancer, CVA, ARF, Chemo, Hep., AIDS, mental health diagnosis, sleep apnea, morbid obesity)? @ -Hypertension, diabetes Was patient admitted / discharged? Hospital course, mention meds given and route, prescriptions, significant lab abnormalities, going to OR and other pertinent info. @ -Admitted patient presented for concerning chest pain symptoms. Initial troponin is negative. Patient has multiple risk factors including hypertension diabetes. Patient be admitted for repeat troponin, cardiology evaluation. Chest x-rays unremarkable EKG showed no acute changes Undiagnosed new problem with uncertain prognosis? @ -No Drug Therapy requiring intensive monitoring for toxicity (Heparin, Nitro, Insulin, Cardizem)? @ -No Were any procedures done? @ -No Diagnosis/symptom? @ -Chest pain Acute, or Chronic, or Acute on Chronic? @ -Acute Uncomplicated (without systemic symptoms) or Complicated (systemic symptoms)? @ -[complicated Side effects of treatment? @ -No Exacerbation, Progression, or Severe Exacerbation? @ -No Poses a threat to life or bodily function? How? (Chest pain, [place], [place], pneumonia, PE, COPD, DKA, ARF, appy, cholecystitis, CVA, Diverticulitis, Homicidal, Suicidal, threat to staff... and all critical care pts) @ -Yes possible ACS Disposition Clinical Impression: Chest pain Disposition: ADMITTED IP TO THIS [facility] Condition: Fair Referrals: Oswaldo Marin MD [Primary Care Provider] - 1-2 days Time of Disposition: 08:36
[2023-10-08 07:39] LABS: Basophils # (A) 0.1 k/uL (0-0.2); Basophils % (A) 1 %; Eosinophils # (A) 0.1 k/uL (0-0.7); Eosinophils % (A) 1 %; HCT 44.9 % (34.0-46.0); HGB 14.8 gm/dL (11.4-16.0); Lymphocytes # (A) 2.4 k/uL (1.0-4.8); Lymphocytes % (A) 22 %; MCH 28.5 pg (25.0-35.0); MCV 86.4 fL (80.0-100.0); Monocytes # (A) 0.6 k/uL (0-1.0); Monocytes % (A) 5 %; Neutrophils # (A) 7.8 k/uL (1.3-7.7); Neutrophils % (A) 71 %; Platelet Count 216 k/uL (150-450); RBC 5.19 m/uL (3.80-5.40); RDW 14.8 % (11.5-15.5); WBC 11.1 k/uL (3.8-10.6)
[2023-10-08 07:50] LABS: ALT 37 U/L (4-34); AST 26 U/L (14-36); African American GFR (CKD) >90 (>60 ml/min/1.73 sqM); Albumin 3.4 g/dL (3.5-5.0); Alkaline Phosphatase 144 U/L (38-126); Anion Gap 11 mmol/L; Blood Urea Nitrogen 18 mg/dL (7-17); Carbon Dioxide 24 mmol/L (22-30); Chloride 106 mmol/L (98-107); Glucose 198 mg/dL (74-99); Magnesium 1.9 mg/dL (1.6-2.3); Non-African American GFR(CKD) 86 (>60 ml/min/1.73 sqM); Potassium 3.3 mmol/L (3.5-5.1); Sodium 141 mmol/L (137-145); Total Bilirubin 0.9 mg/dL (0.2-1.3)
[2023-10-08 07:55] LABS: INR 0.9 (<1.2); Partial Thromboplastin Time 22.2 sec (22.0-30.0); Prothrombin Time 10.2 sec (10.0-12.5)
[2023-10-08 07:59] LABS: NT-Pro-B-Type Natriuretic Pept 87 pg/mL
--- NOTE | 2023-10-08 08:22 | XR ---
EXAMINATION TYPE: XR chest 2V DATE OF EXAM: 10/08/2023 COMPARISON: 01/07/2022 HISTORY: 73-year-old female with chest pain TECHNIQUE: AP and lateral views FINDINGS: Heart normal size. Aorta and pulmonary vasculature within normal limits. Mild interstitial prominence is unchanged. Suspect postsurgical shortening of the distal left clavicle which is unchanged. No con solidation or pleural effusion. IMPRESSION: Chronic changes. No acute process seen.
[2023-10-08] MEDS: POTASSIUM CHLORIDE ER 20 MEQ TAB.ER PO STA (09:16)
[2023-10-08] MEDS ORDERED: NITROGLYCERIN SL TABS 0.4 MG TAB SUBLINGUAL PRN (09:17)
--- NOTE | 2023-10-08 11:22 | P.CRDCN ---
History of Present Illness Consult date: 10/08/23 Consult reason: chest pain History of present illness: History of present illness: This is a 73-year-old female with past medical history of diabetes mellitus type 2, hypertension, hyperlipidemia, obstructive sleep apnea on O2 at bedtime, chronic kidney disease stage III, ulcerative colitis. Patient does not follow with a flow floor attendant. We have been asked to evaluate the patient for chest pain. Patient presented to the hospital due to chest pain that started in the morning but states she has been sick since [place] with a cough and cold-like symptoms status post steroids and other medications for this. She seemed to improve improved respiratory symptoms but then she decided developed left-sided chest pain that radiated straight through to her back. Patient is seen today on the observation unit. She is comfortable at this time with no chest pain. EKG sinus rhythm, right bundle branch block, no previous EKG available to deanna re Chest x-ray: No acute process. WBC 11.1, hemoglobin 14.8. INR 0.9. Potassium 3.3, sodium 141, BUN 18 creatinine 0.69. Blood sugar 198. Troponins negative 3. ProBNP 87. Influenza A, influenza B, RSV, Covid 19 detected. Home cardiac medications: Aspirin 81 mg daily, atenolol 25 mg twice daily, atorvastatin 40 mg at bedtime, Lasix 40 mg twice daily, potassium 40 mEq at bedtime, also on levothyroxine 125 g daily and Mounjaro. Echocardiogram performed in 2020 revealed EF 55-60%, trace mitral regurgitation, trace tricuspid regurgitation. Lexiscan Cardiolite stress test performed 06/2021 revealed normal EKG response. No scintigraphic evidence of reversible ischemia. Review Of Systems: At the time of my exam: CONSTITUTIONAL: Denies fever or chills. CARDIOVASCULAR: Denies chest pain, Denies shortness of breath, no orthopnea, PND or palpitations. RESPIRATORY: Denies cough. GASTROINTESTINAL: Denies abdominal pain, diarrhea, constipation, nausea or vomiting. MUSCULOSKELETAL: Denies myalgias. NEUROLOGIC: Denies numbness, tingling or weakness. ENDOCRINE: Denies fatigue, weight change, polydipsia or polyurina. GENITOURINARY: Denies burning, hematuria or urgency with micturation. HEMATOLOGIC: Denies history of anemia or bleeding. Physical examination: Gen: This is a 73-year-old female resting in bed and appears to be comfortable. VS: reviewed blood pressure 175/95, heart rate in the 70s and 80s, pulse ox 90% on 2 L. HEENT: Head is atraumatic, normocephalic. Pupils equal, round. Sclerae is anicteric. NECK: Supple. No JVD. LUNGS: Clear to auscultation. No wheezes or rhonchi. No intercostal retractions. HEART: Regular rate and rhythm. No murmur. ABDOMEN: Soft No tenderness. EXTREMITIES: No pedal edema. No calf tenderness. NEUROLOGICAL: Patient is awake, alert and oriented x3. Assessment: Chest pain, acute coronary syndrome ruled out History of diabetes mellitus type 2 Hypertension Hyperlipidemia Obstructive sleep apnea Plan: Resume patient's home cardiac medications Repeat troponins Obtain d-dimer If troponins and d-dimer are negative, schedule patient for Lexiscan stress test tomorrow Obtain 2-D echocardiogram and Doppler study to assess cardiac structure and function Further recommendations to follow based upon clinical course Thank you kindly for this consultation. Nurse practitioner note has been reviewed, I agree with documented findings and plan of care. Patient was seen and examined. Past Medical History Past Medical History: Diabetes Mellitus, Eye Disorder, Hearing Disorder / Deafness, Hyperlipidemia, Hypertension, Osteoarthritis (OA), Renal Disease, Sleep Apnea/CPAP/BIPAP, Thyroid Disorder Additional Past Medical History / Comment(s): NIDDM type II, neuropathy bila teral feet, CKD stage III, UTIs, CHANDU with CPap, bilateral lower leg edema, ulcerative colitis, benign colon pollyp, arthritis in multiple joints/chronic pain, unsteady gait, R rotator cuff repair/physical therapy increased ROM [place] bilaterally, glaucoma bilateral eyes. History of Any Multi-Drug Resistant Organisms: None Reported Past Surgical History: Cholecystectomy, Orthopedic Surgery Additional Past Surgical History / Comment(s): R wrist ganglion cystectomy, R wrist ganglion cystectomy, L shoulder bone removed, colonoscopies Past Anesthesia/Blood Transfusion Reactions: Motion Sickness Past Psychological History: No Psychological Hx Reported Smoking Status: Never smoker - Past Family History Mother Family Medical History: Renal Disease Additional Family Medical History / Comment(s): Mother of renal failure. Father Family Medical History: Myocardial Infarction (KS) Additional Family Medical History / Comment(s): Father of a KS at the age of 75 yrs. He had his first KS about age 65yrs. Medications and Allergies Home Medications Medication Instructions Recorded Confirmed Type Atorvastatin [Lipitor] 40 mg PO HS 08/15/18 10/08/23 History atenoloL [Tenormin] 25 mg PO BID 08/15/18 10/08/23 History Potassium Chloride [K-Tab ER] 40 meq PO HS 11/19/18 10/08/23 History Acetaminophen with Codeine 1 tab PO DAILY PRN 01/06/22 10/08/23 History [Tylenol w/codeine #3] Cholecalciferol [Vitamin D3 (25 50 mcg PO DAILY 01/06/22 10/08/23 History Mcg = 1000 Iu)] Furosemide [Lasix] 40 mg PO BID 01/06/22 10/08/23 History Zinc 50 mg PO DAILY 01/06/22 10/08/23 History Aspirin [Adult Low Dose Aspirin EC] 81 mg PO DAILY 09/22/22 10/08/23 History Clotrimazole Cream [Lotrimin Cream] 1 applic TOPICAL BID 10/08/23 10/08/23 Hist ory Levothyroxine Sodium [Synthroid] 125 mcg PO DAILY 10/08/23 10/08/23 History Mounjaro (Unknown Dose) 1 dose SQ WE 10/08/23 10/08/23 History Allergies Allergy/AdvReac Type Severity Reaction Status Date / Time ibuprofen [From Motrin] Allergy Rash/Hives Verified 10/08/23 09:47 sulfamethoxazole Allergy Rash/Hives Verified 10/08/23 09:47 [From Bactrim] tetanus and diphtheria Allergy Rash/Hives Verified 10/08/23 09:47 toxoids trimethoprim [From Bactrim] Allergy Rash/Hives Verified 10/08/23 09:47 Physical Exam Vitals: Vital Signs Temp Pulse Resp BP Pulse Ox 10/08/23 10:20 75 20 175/95 98 10/08/23 09:17 75 16 155/73 98 10/08/23 08:18 20 10/08/23 07:32 87 16 168/94 97 10/08/23 07:13 97.9 F 87 20 168/94 98 Intake and Output 10/07/23 10/08/23 10/08/23 22:59 06:59 14:59 Other: Weight 91.172 kg Results 10/08/23 07:32 10/08/23 07:32 Cardiac Enzymes 10/08/23 10/08/23 Range/Units 07:32 07:32 AST 26 (14-36) U/L Troponin I <0.012 (0.000-0.034) ng/mL Coagulation 10/08/23 Range/Units 07:32 PT 10.2 (10.0-12.5) sec APTT 22.2 (22.0-30.0) sec CBC 10/08/23 Range/Units 07:32 WBC 11.1 H (3.8-10.6) k/uL RBC 5.19 (3.80-5.40) m/uL Hgb 14.8 (11.4-16.0) gm/dL Hct 44.9 (34.0-46.0) % Plt Count 216 (150-450) k/uL Comprehensive Metabolic Panel 10/08/23 Range/Units 07:32 Sodium 141 (137-145) mmol/L Potassium 3.3 L (3.5-5.1) mmol/L Chloride 106 (98-107) mmol/L Carbon Dioxide 24 (22-30) mmol/L BUN 18 H (7-17) mg/dL Creatinine 0.69 (0.52-1.04) mg/dL Glucose 198 H (74-99) mg/dL Calcium 9.0 (8.4-10.2) mg/dL AST 26 (14-36) U/L ALT 37 H (4-34) U/L Alkaline Phosphatase 144 H (38-126) U/L Total Protein 6.0 L (6.3-8.2) g/dL Albumin 3.4 L (3.5-5.0) g/dL Current Medications Generic Name Dose Route Start Last Admin Trade Name Freq PRN Reason Stop Dose Admin Aspirin 325 mg 10/09/23 09:00 Aspirin 325 Mg Tab PO DAILY JULIANNA Nitroglycerin 0.4 mg 10/08/23 09:17 Nitroglycerin Sl Tabs 0.4 Mg Tab SUBLINGUAL Q5M PRN Chest Pain Intake and Output 10/07/23 10/08/23 10/08/23 22:59 06:59 14:59 Other: Weight 91.172 kg Patient Weight 10/09/23 06:59 Weight 91.172 kg 10/08/23 07:32 10/08/23 07:32
[2023-10-08 11:34] LABS: Glucose,Whole Blood 143 mg/dL (70-110)
[2023-10-08] MEDS: atenoloL 25 MG TAB PO SCH (12:01)
[2023-10-08] MEDS: IPRATROPIUM-ALBUTEROL 3 ML NEB INHALATION SCH (15:11)
[2023-10-08] MEDS: FUROSEMIDE 40 MG TAB PO SCH (16:23)
[2023-10-08] MEDS: POTASSIUM CITRATE 5 MEQ TABLET.ER PO SCH (16:24)
[2023-10-08 16:28] LABS: Glucose,Whole Blood 193 mg/dL (70-110)
[2023-10-08] MEDS: ATORVASTATIN 40 MG TAB PO SCH (20:45)
[2023-10-08] MEDS: POTASSIUM CHLORIDE ER 20 MEQ TAB.ER PO SCH (20:45)
[2023-10-08 21:15] LABS: Glucose,Whole Blood 156 mg/dL (70-110)
--- NOTE | 2023-10-09 01:34 | HP ---
HISTORY AND PHYSICAL HISTORY OF PRESENT ILLNESS: A 73-year-old white female came in with chest pain started this morning in the middle of the night, cough, congestion, shortness of breath, started on antibiotics, pain mainly to her back, suspected COPD, possible pneumonia. She has diabetes, hypertension, supposed to get a stress test in the morning. MEDICATIONS: Reviewed. REVIEW OF SYSTEMS: A 14-point review of systems otherwise negative. ALLERGIES: Multiple, look at chart. EKG shows sinus rhythm. PAST MEDICAL HISTORY: Diabetes mellitus, eye disorder, hearing disorder, hypertension, osteoarthritis, diastolic CHF, sleep apnea, renal disease, hypothyroidism, type 2 diabetes mellitus, rotator cuff repair in the past, chronic back pain, bilateral eyes glaucoma. PAST SURGICAL HISTORY: Cholecystectomy, orthopedic surgery, ganglion wrist, shoulders operated, and colonoscopies. FAMILY HISTORY: Mother renal disease. Father myocardial infarction. PHYSICAL EXAMINATION: VITAL SIGNS: Reviewed. CARDIOVASCULAR: S1, S2. LUNGS: Scattered rhonchi and wheeze. HEMATOLOGY: Negative Homans. PSYCH: Fair mood and affect. NEUROLOGIC: Alert and oriented x3. OPHTHALMOLOGIC: Pupils equal, round, and reactive. NEUROLOGIC: Cranial nerves intact. ASSESSMENT: Atypical chest pain, chronic obstructive pulmonary disease versus tracheobronchitis, gastroesophageal reflux disease, obesity, hypothyroidism, hypertension, chronic renal disease, diabetes mellitus. Negative troponins. Also get a stress test prior to going home. Prognosis guarded. MMODL / IJN: [id number] /
[2023-10-09 05:49] LABS: Glucose,Whole Blood 145 mg/dL (70-110)
[2023-10-09] MEDS ORDERED: AMINOPHYLLINE 500 MG/20 ML VIAL IV PRN (06:00)
[2023-10-09] MEDS ORDERED: REGADENOSON 0.4 MG/5 ML SYRINGE IV PRN (06:00)
[2023-10-09] MEDS ORDERED: CAFFEINE CITRATE 60 MG/3 ML VIAL IV PRN (06:00)
[2023-10-09] MEDS: LEVOTHYROXINE 125 MCG TAB PO SCH (06:17)
[2023-10-09] MEDS: CHOLECALCIFEROL 25 MCG (1000 IU) TABLET PO SCH (08:07)
[2023-10-09] MEDS: ZINC SULFATE 220 MG CAP PO SCH (08:08)
[2023-10-09] MEDS: ASPIRIN 81 MG PO SCH (08:08)
[2023-10-09 08:57] VITALS: TEMP 98
[2023-10-09] MEDS ORDERED: ASPIRIN 325 MG TAB PO SCH (09:00)
--- NOTE | 2023-10-09 10:43 | CA ---
Lexiscan Nuclear Stress Test Report Name: Krysta Agrawal Exam Date: 10/09/2023 10:20 Exam Location: [facility] Ht (in): 64 Wt (lb): 201 BSA: 1.96 Ordering Phys: Adry Jones Referring Phys: ADRY JONES,, Technologist: Junito Winchester Age: 73 Gender: F : 1950 Procedure CPT: Indications: Reflex order-Stress test ICD-10 Codes: Patient History: CP, JONATHAN, NUMBNESS IN FACE/NECK, HTN, DIABETIC, ELEVATED CHOLESTEROL LEVELS, FAMILY HX OF HEART DISEASE, PRIOR CARDIAC CATH, COPD Medications: Meds past 24 hrs: Pretest Chest Pain: STRESS TEST Lexiscan Protocol Exercise Duration (min:sec): 02:[address] Depressions (mm): Angina Score: Rivera Score: Resting HR (bpm): 76 Peak HR (bpm): 97 Resting BP (mmHg): 125 / 69 Peak BP (mmHg): 142 / 88 MPHR: 145 Target HR: 123 % MPHR: 67 METS: 1.0 Total Dose: Peak Dose: Atropine: Double Product: 37318 BP Response: Stress Termination: INFUSION COMPLETE Stress Symptoms: NO SYMPTOMS Stress Summary: ECG ANALYSIS Resting ECG: Sinus rhythm with right bundle branch block Stress ECG: Patient was given intravenous Lexiscan per protocol did not have diagnostic ST segment depression CONCLUSIONS Negative stress test by EKG criteria Cardiolite portion of the stress test will be reported separately Dr. Lambert Phillips MD (Electronically Signed) Final Date: 09 October 2023 10:42
[2023-10-09 11:07] LABS: Chol/HDL Ratio 3.01 Ratio; LDL Cholesterol,Calculated 87.7 mg/dL (0.0-131.0); VLDL Calculation 18.44 mg/dL (5.00-40.00)
[2023-10-09 11:50] VITALS: RESP 18
--- NOTE | 2023-10-09 12:11 | NM ---
EXAMINATION TYPE: NM stress lexiscan cardiolite DATE OF EXAM: 10/09/2023 COMPARISON: 06/30/2021 CLINICAL INDICATION: Female, 73 years old with history of CP; TECHNIQUE: After the intravenous administration of 10.5 mCi Tc 99m Sestamibi - Cardiolite resting SP ECT images acquired 45 minutes post injection. The patient received 0.4mg Lexiscan, 26.3 mCi Tc 99m Sestamibi - Stress images obtained [address] injection FINDINGS: Review of stress and rest SPECT images demonstrates no distinct perfusion abnormality. Gated analysi s shows normal wall motion with an estimated left ventricular ejection fraction of 78 %. TID is bord siva increased/upper limits of normal at 1.18. IMPRESSION: 1. The transient ischemic dilatation ratio is at the upper limits of normal. If there remains high cl inical suspicion (such as for significant multivessel disease), consider further evaluation. 2. Otherwise, no scintigraphic evidence for inducible ischemia.
[2023-10-09] MEDS: ISOSORBIDE MONONITRATE ER 30 MG TAB.ER.24H PO SCH (12:30)
[2023-10-09 12:35] LABS: Glucose,Whole Blood 150 mg/dL (70-110)
--- NOTE | 2023-10-09 13:56 | P.PN ---
Subjective Progress Note Date: 10/09/23 Consult reason: chest pain History of present illness: This is a 73-year-old female with past medical history of diabetes mellitus type 2, hypertension, hyperlipidemia, obstructive sleep apnea on O2 at bedtime, chronic kidney disease stage III, ulcerative colitis. Patient does not follow with a digital assistant. We have been asked to evaluate the patient for chest pain. Patient presented to the hospital due to chest pain that started in the morning but states she has been sick since [place] with a cough and cold-like symptoms status post steroids and other medications for this. She seemed to improve improved respiratory symptoms but then she decided developed left-sided chest pain that radiated straight through to her back. Patient is seen today on the observation unit. She is comfortable at this time with no chest pain. EKG sinus rhythm, right bundle branch block, no previous EKG available to compare Chest x-ray: No acute process. WBC 11.1, hemoglobin 14.8. INR 0.9. Potassium 3.3, sodium 141, BUN 18 creatinine 0.69. Blood sugar 198. Troponins negative 3. ProBNP 87. Influenza A, influenza B, RSV, Covid 19 detected. Home cardiac medications: Aspirin 81 mg daily, atenolol 25 mg twice daily, atorvastatin 40 mg at bedtime, Lasix 40 mg twice daily, potassium 40 mEq at bedtime, also on levothyroxine 125 g daily and Mounjaro. Echocardiogram performed in 2020 revealed EF 55-60%, trace mitral regurgitation, trace tricuspid regurgitation. Lexiscan Cardiolite stress test performed 06/2021 revealed normal EKG response. No scintigraphic evidence of reversible ischemia. 10/09 Patient is seen today in follow-up. She is status post Lexiscan Cardiolite str ess test this morning. Nuclear part reveals transit ischemic dilatation ratio is at the upper limits of normal. If there remains high clinical suspicion consider further evaluation. Patient denies having any chest pain at this time. She states she is feeling good. Reviewed results with the patient and she would like to continue medical management at this time. D-dimer came back 0.32. Repeat troponin negative. Physical examination: Gen: This is a 73-year-old female resting in bed and appears to be comfortable. VS: reviewed blood pressure 123/80, heart rate in the 80s, pulse ox 98% on room air. HEENT: Head is atraumatic, normocephalic. Pupils equal, round. Sclerae is anicteric. NECK: Supple. No JVD. LUNGS: Clear to auscultation. No wheezes or rhonchi. No intercostal retractions. HEART: Regular rate and rhythm. No murmur. EXTREMITIES: No pedal edema. No calf tenderness. NEUROLOGICAL: Patient is awake, alert and oriented x3. Assessment: Chest pain, acute coronary syndrome ruled out History of diabetes mellitus type 2 Hypertension Hyperlipidemia Obstructive sleep apnea Plan: Continue patient's home cardiac medications Plan is for medical management. Lexiscan stress test is upper limits of normal. Patient will be reevaluated in the office and if there appears to be needed, she will be scheduled for cardiac catheterization and a later date as an outpatient. Start patient on Imdur 30 mg daily Patient is cleared from cardiology for discharge from a follow-up with Dr. Quan Phillips in the office in 2 weeks. Nurse practitioner note has been reviewed, I agree with documented findings and plan of care. Patient was seen and examined. Objective - Vital Signs Vital signs: Vital Signs Temp 98.0 F 10/09/23 08:46 Pulse 64 10/09/23 08:46 Resp 19 10/09/23 04:38 BP 123/80 10/09/23 08:46 Pulse Ox 97 10/09/23 08:46 FiO2 Intake & Output 10/08/23 10/09/23 10/09/23 18:59 06:59 18:59 Intake Total 236 Balance 236 Weight 91.172 kg Intake: Oral 236 Other: Voiding Method Toilet Toilet # Voids 3 - Labs CBC & Chem 7: 10/08/23 07:32 10/08/23 07:32 Labs: Abnormal Lab Results - Last 24 Hours (Table) 10/08/23 10/08/23 10/08/23 Range/Units 11:33 16:26 21:14 POC Glucose (mg/dL) 143 H 193 H 156 H (70-110) mg/dL 10/09/23 Range/Units 05:47 POC Glucose (mg/dL) 145 H (70-110) mg/dL
[2023-10-09 14:42] VITALS: BP 122/73
[2023-10-09 15:30] VITALS: PULSE 88
--- NOTE | 2023-10-09 16:34 | CA ---
Transthoracic Echo Report Name: Krysta Agrawal Age: 73 Gender: F : 1950 Exam Date: 10/09/2023 12:06 Exam Location: [facility] Ht (in): Wt (lb): Ordering Physician: Lambert Phillips MD Attending/Referring Phys: Criminal Intelligence Analyst Makenna Cota RDCS Procedure CPT: Indications: CP Cardiac Hx: Technical Quality: Fair Contrast 1: Total Dose (mL): Contrast 2: Total Dose (mL): MEASUREMENTS (Male / Female) Normal Values 2D ECHO LV Diastolic Diameter PLAX 4.0 cm 4.2 - 5.9 / 3.9 - 5.3 cm LV Systolic Diameter PLAX 2.1 cm IVS Diastolic Thickness 1.0 cm 0.6 - 1.0 / 0.6 - 0.9 cm LVPW Diastolic Thickness 1.1 cm 0.6 - 1.0 / 0.6 - 0.9 cm LV Relative Wall Thickness 0.5 RV Internal Dim ED PLAX 4.2 cm M-MODE Aortic Root Diameter MM 3.1 cm LA Systolic Diameter MM 3.6 cm LA Ao Ratio MM 1.1 AV Cusp Separation MM 2.1 cm DOPPLER AV Peak Velocity 121.3 cm/s AV Peak Gradient 5.9 mmHg LVOT Peak Velocity 132.2 cm/s LVOT Peak Gradient 7.0 mmHg Mitral E Point Velocity 66.2 cm/s Mitral A Point Velocity 97.2 cm/s Mitral E to A Ratio 0.7 MV Deceleration Time 241.2 ms TR Peak Velocity 185.6 cm/s TR Peak Gradient 13.8 mmHg Right Atrial Pressure 10.0 mmHg Pulmonary Artery Systolic Pressu 23.8 mmHg Right Ventricular Systolic Press 23.8 mmHg FINDINGS Left Ventricle Mildly increased left ventricular wall thickness. Left ventricular cavity size normal. Normal left ventricular systolic function with no obvious regional wall motion abnormalities. Left ventricular ejection fraction is estimated at 55-60 %. Right Ventricle Right ventricular dilatation. Right ventricular systolic pressure within normal limits. Right Atrium Normal right atrial size. Left Atrium Normal left atrial size. Mitral Valve Structurally normal mitral valve. Trace mitral regurgitation. Aortic Valve Trileaflet aortic valve. No aortic valve stenosis or regurgitation. Tricuspid Valve Structurally normal tricuspid valve. Mild tricuspid regurgitation. Pulmonic Valve Structurally normal pulmonic valve. Trace pulmonic regurgitation. Pericardium No pericardial effusion. Aorta Normal size aortic root and proximal ascending aorta. CONCLUSIONS Normal LV function Previewed by: Dr. Lambert Phillips MD (Electronically Signed) Final Date: 09 October 2023 16:33
[2023-10-09 16:55] LABS: Glucose,Whole Blood 166 mg/dL (70-110)
--- NOTE | 2023-11-04 05:19 | DS ---
DISCHARGE SUMMARY MEDICATIONS: Stay on 1. Lipitor 40 mg at bedtime. 2. Tenormin 25 b.i.d. 3. K-Tab 40 at night and 50 mg daily. 4. Vitamin D 50 mcg daily. 5. Lasix 40 b.i.d. 6. Tylenol No. 3 q.4-6 p.r.n. 7. Synthroid 125 mcg daily. 8. dose weekly. 9. DuoNeb q.i.d. 10.Imdur 30 mg daily. 11.Potassium 50 mEq b.i.d. She came in with atypical chest pain. Cardiology saw her, cleared her from a cardiac standpoint. She had a Lexiscan stress test which showed no signs of any ischemia. She had echocardiogram, right systolic pressure. She has right ventricular systolic pressure, right ventricular dilation. She had an early pulmonary hypertension. PROGNOSIS: Guarded. echo in the past. Cleared for surgery. Discharged home after she passed a stress test and follow up as outpatient. MMODL / IJN: [id number] /
== END 2023-10-09 18:28 | disposition home or self-care (01) ==
LOC: EC 07:05 → 6NMEDSUR 08:53 → 1SOBS 09:53
PROVIDERS: ADMIT Family Medicine; ATTEND Family Medicine
DX: R07.89 Other chest pain (principal); I13.0 Hypertensive heart and chronic kidney disease with heart failure and stage 1 through stage 4 chronic kidney disease, or unspecified chronic kidney disease; E11.22 Type 2 diabetes mellitus with diabetic chronic kidney disease; I50.32 Chronic diastolic (congestive) heart failure; N18.30 Chronic kidney disease, stage 3 unspecified; K21.9 Gastro-esophageal reflux disease without esophagitis; E78.5 Hyperlipidemia, unspecified; E03.9 Hypothyroidism, unspecified; E66.9 Obesity, unspecified; E11.40 Type 2 diabetes mellitus with diabetic neuropathy, unspecified; G47.33 Obstructive sleep apnea (adult) (pediatric); M19.90 Unspecified osteoarthritis, unspecified site; Z79.899 Other long term (current) drug therapy; Z79.890 Hormone replacement therapy; Z79.82 Long term (current) use of aspirin; Z88.6 Allergy status to analgesic agent; Z88.2 Allergy status to sulfonamides; Z88.1 Allergy status to other antibiotic agents; Z88.7 Allergy status to serum and vaccine; Z82.49 Family history of ischemic heart disease and other diseases of the circulatory system; Z20.822 Contact with and (suspected) exposure to COVID-19; Z68.34 Body mass index [BMI] 34.0-34.9, adult
CPT/HCPCS: 99285; 36415; 94640 ×4; 94760 ×2; 93005; 93017; 93306; 85379; 83880; 80061; 80053; 83735; 84484; 85025; 85610; 85730; 87636; 71046; 78452; G0378 ×2; A9500; J2785; 96365; 96366; 96375; 96376

== ENCOUNTER → 2023-10-26 | Day surgery (SDC) | payer MEDICARE ==
[2023-10-23 08:42] VITALS: BMI 34.0
[~2023-10-26] MED LIST changes: +ACETAMINOPHEN PO PRN; +ALPRAZolam 0.25 MG TAB PO PRN; +ALPRAZolam 0.5 MG TAB PO PRN; +ASPIRIN 325 MG TAB PO STA; +ASPIRIN 81 MG PO SCH; +ATORVASTATIN 40 MG TAB PO SCH; +CHOLECALCIFEROL 25 MCG (1000 IU) TABLET PO SCH; +CLOTRIMAZOLE 1% CREAM 30 GM TUBE TOPICAL SCH; +CODEINE PO PRN; +FUROSEMIDE 40 MG TAB PO SCH; +HEPARIN SODIUM 1,000 UN/ML (10ML VL) IVP ONE; +HEPARIN SODIUM 1,000 UN/ML (10ML VL) ONE; +HEPARIN SODIUM,PORCINE (1 ML) 2,500 UNIT in SODIUM CHLORIDE 0.9% 250 ML IRRIGATION PRN; +HEPARIN SODIUM,PORCINE 10,000 UNIT in SODIUM CHLORIDE 0.9% 1,000 ML IRRIGATION PRN; +IOPAMIDOL-370 100ML BTL IVP ONE; +ISOSORBIDE MONONITRATE ER 30 MG TAB.ER.24H PO SCH; +LEVOTHYROXINE 125 MCG TAB PO SCH; +LIDOCAINE 1% INJ 10MG/ML (20 ML MDV) ONE; +LIDOCAINE 1% INJ 10MG/ML (20 ML MDV) SQ ONE; +MIDAZOLAM 2 MG/2 ML VIAL IVP ONE; +MOUNJARO SQ SCH; +NITROGLYCERIN SL TABS 0.4 MG TAB SUBLINGUAL PRN; +NON FORMULARY DRUG (Potassium Chloride [K-Tab Er] 20 MEQ Tablet.Er) PO SCH; +NON FORMULARY DRUG (Zinc [Zinc] 50 MG Tablet) PO SCH; +POTASSIUM CHLORIDE ER 20 MEQ TAB.ER PO STA; +POTASSIUM CITRATE 5 MEQ TABLET.ER PO SCH; -REGADENOSON 0.4 MG/5 ML SYRINGE IV PRN; +SODIUM CHLORIDE 0.9% 1,000 ML in EMPTY BAG 1 BAG IV SCH; +VERAPAMIL 2.5 MG/ML 2 ML AMP ONE; +VERAPAMIL SYRINGE (5 MG/10 ML) INTRAARTER ONE; +atenoloL 25 MG TAB PO SCH; +fentaNYL (PF) 50 MCG/ML 2 ML AMP IVP ONE; +fentaNYL (PF) 50 MCG/ML 2 ML AMP ONE
[2023-10-26 06:54] LABS: Glucose,Whole Blood 132 mg/dL (70-110)
[2023-10-26 07:22] VITALS: RESP 16; TEMP 97.6
--- NOTE | 2023-10-26 09:13 | CC ---
CARDIAC CATHETERIZATION REPORT INDICATION: Unstable angina. PROCEDURE NOTE: After obtaining informed consent, left heart catheterization and coronary angiogram were performed via the right radial artery using standard Brinda catheters. The patient tolerated the procedure well without any obvious immediate complications. The patient received moderate conscious sedation. Total sedation time was 18 minutes. Right radial artery access was obtained using Seldinger technique. 6-Chadian sheath was placed. Catheters and wires were floated into the ascending aorta under fluoroscopic guidance. The patient received verapamil and heparin per protocol, and a TR band was used for hemostasis. FINDINGS: 1. Hemodynamics: Left ventricular end-diastolic pressure is 14 mm. There is no significant gradient across the aortic valve. 2. Left ventriculogram: Left ventriculogram is not performed. 3. Angiographic Data: a.Right coronary artery: Right coronary artery is a large dominant vessel and is free of stenosis. b.Left main coronary artery: Left main coronary artery is a normal-sized vessel and is free of stenosis, divides into left anterior descending coronary artery and circumflex coronary artery. LAD and its branches, circumflex coronary artery and its branches are free of significant stenosis. Left coronary system appears calcified. CONCLUSIONS: Calcification of the coronaries without significant focal obstructive disease to explain the patient's chest pain. PLAN: We will manage the patient with optimal medical therapy and risk factor modification. MMODL / IJN: [id number] /
[2023-10-26 18:05] VITALS: BP 154/73; PULSE 72
== END ==
LOC: CATHCVL 06:03
PROVIDERS: ATTEND Internal Medicine Cardiovascular Disease
DX: I20.0 Unstable angina (principal); E78.2 Mixed hyperlipidemia; I10 Essential (primary) hypertension; E11.9 Type 2 diabetes mellitus without complications; Z82.49 Family history of ischemic heart disease and other diseases of the circulatory system; Z88.2 Allergy status to sulfonamides; Z79.899 Other long term (current) drug therapy
CPT/HCPCS: 93458; 84132; C1769; C1894; J2250; J2001; J3010; J1644; Q9967

== ENCOUNTER → 2024-06-16 | Outpatient (CLI) | payer MEDICARE ==
--- NOTE | 2024-06-16 11:32 | CT ---
EXAMINATION TYPE: CT abdomen wo con CT DLP: 878 mGycm, Automated exposure control for dose reduction was used. DATE OF EXAM: 06/16/2024 9:28 AM COMPARISON: 01/06/2022 CLINICAL INDICATION: Female, 74 years old with history of N20.2 CALCULUS OF KIDNEY; Renal stones, abd ominal pain, RT flank pain, hematuria. TECHNIQUE: Axial CT abdomen and pelvis wo con;Sagittal and coronal reformats were created on a [employer] workstation. Contrast used: mL of , (none if empty) Oral contrast used: without Oral Contrast (none if empty) FINDINGS: LOWER CHEST: Unremarkable ABDOMEN LIVER: Unremarkable GALLBLADDER AND BILE DUCTS: Gallbladder is absent PANCREAS: Unremarkable. SPLEEN: Unremarkable. ADRENAL GLANDS: Unremarkable. KIDNEYS AND URETERS: No evidence of hydronephrosis or renal calculus. The ureters are unremarkable. STOMACH AND BOWEL: No evidence of bowel obstruction. Scattered colonic diverticula. The appendix is n ormal. PERITONEUM/RETROPERITONEUM: No evidence of pneumoperitoneum or free fluid. VASCULATURE: Mild atherosclerotic calcifications are present throughout the abdominal aorta and its b ranches. No evidence of aortic aneurysm. MUSCULOSKELETAL: No acute osseous abnormalities LYMPH NODES: No gross evidence for lymphadenopathy. SOFT TISSUE/ABDOMINAL WALL: Fat-containing umbilical hernia. IMPRESSION: 1. No acute abdominal process. No evidence for obstructive uropathy or renal calculus. 2. Colonic diverticulosis. 3. Fibroid uterus with calcification. [facility], , 06/16/2024 11:30 AM
== END | disposition home or self-care (01) ==
LOC: RADCTMAIN 07:42
PROVIDERS: ATTEND Family Medicine
DX: N20.2 Calculus of kidney with calculus of ureter
CPT/HCPCS: 74176

== ENCOUNTER → 2024-08-25 | Outpatient (CLI) | payer MEDICARE ==
--- NOTE | 2024-08-26 14:52 | US ---
EXAMINATION TYPE: US pelvic complete DATE OF EXAM: 08/25/2024 COMPARISON: CT 06/16/2024 CLINICAL INDICATION: Female, 74 years old with history of R10.2 PELVIC AND PERINEAL PAIN; Patient den ies any other signs, symptoms, or relevant history TECHNIQUE: Transabdominal (TA). Transabdominal grayscale sonographic images of the pelvis were acquired Doppler imaging: Not performed. FINDINGS: Date of LMP: 20 years ago EXAM MEASUREMENTS: Uterus: 7.3 x 3.5 x 5.3 cm Endometrial Stripe: 1.7 cm Right Ovary: 2.2 x 1.1 x 2.1 cm Left Ovary: 2.0 x 1.2 x 1.2 cm 1. Uterus: Anteverted Calcified fibroid = 3.4 x 3.1 x 2.9 2. Endometrium: Thickened and heterogenous 3. Right Ovary: wnl 4. Left Ovary: wnl 5. Bilateral Adnexa: wnl 6. Posterior cul-de-sac: wnl IMPRESSION: 1. Calcified leiomyoma. 2. Nonspecific thickening and heterogeneity of the endometrium. Consider direct visualization. [facility], , 08/26/2024 2:50 PM
== END | disposition home or self-care (01) ==
LOC: RADUSWWP 15:55
PROVIDERS: ATTEND Family Medicine
DX: D36.7 Benign neoplasm of other specified sites (principal)
CPT/HCPCS: 76856

== ENCOUNTER → 2024-11-03 | Outpatient (CLI) | payer MEDICARE ==
--- NOTE | 2024-11-03 10:05 | XR ---
EXAMINATION TYPE: XR chest 2V DATE OF EXAM: 11/03/2024 10:00 AM COMPARISON: Chest radiographs from 10/08/2023 TECHNIQUE: XR chest 2V Frontal and lateral views of the chest. CLINICAL INDICATION:Female, 74 years old with history of J42 UNSPECIFIED CHRONIC BRONCHITIS J45.901 U NSPECI; FINDINGS: Lungs/Pleura: There is no evidence of pleural effusion, focal consolidation, or pneumothorax. Simila r interstitial prominence. Pulmonary vascularity: Unremarkable. Heart/mediastinum: Cardiomediastinal silhouette is unremarkable. Musculoskeletal: No acute osseous pathology. Suspect postsurgical shortening of the distal left clavi mark is unchanged. IMPRESSION: Chronic changes without acute pulmonary process. No significant change from prior. [facility], , 11/03/2024 10:03 AM
== END | disposition home or self-care (01) ==
LOC: RADXRMAIN 09:45
PROVIDERS: ATTEND Family Medicine
DX: J45.901 Unspecified asthma with (acute) exacerbation (principal); J42 Unspecified chronic bronchitis
CPT/HCPCS: 71046

== ENCOUNTER → 2024-12-09 | Day surgery (SDC) | payer MEDICARE ==
[~2024-12-09] MED LIST changes: -ACETAMINOPHEN PO PRN; -ALPRAZolam 0.25 MG TAB PO PRN; -ALPRAZolam 0.5 MG TAB PO PRN; -ASPIRIN 325 MG TAB PO STA; -ASPIRIN 81 MG PO SCH; -ATORVASTATIN 40 MG TAB PO SCH; -CHOLECALCIFEROL 25 MCG (1000 IU) TABLET PO SCH; -CLOTRIMAZOLE 1% CREAM 30 GM TUBE TOPICAL SCH; -CODEINE PO PRN; -FUROSEMIDE 40 MG TAB PO SCH; -HEPARIN SODIUM 1,000 UN/ML (10ML VL) IVP ONE; -HEPARIN SODIUM 1,000 UN/ML (10ML VL) ONE; -HEPARIN SODIUM,PORCINE (1 ML) 2,500 UNIT in SODIUM CHLORIDE 0.9% 250 ML IRRIGATION PRN; -HEPARIN SODIUM,PORCINE 10,000 UNIT in SODIUM CHLORIDE 0.9% 1,000 ML IRRIGATION PRN; -IOPAMIDOL-370 100ML BTL IVP ONE; -ISOSORBIDE MONONITRATE ER 30 MG TAB.ER.24H PO SCH; +LACTATED RINGERS 1,000 ML IV SCH; -LEVOTHYROXINE 125 MCG TAB PO SCH; +LIDOCAINE 1% (10MG/ML) FOR IV START INTRADERMA PRN; -LIDOCAINE 1% INJ 10MG/ML (20 ML MDV) ONE; -LIDOCAINE 1% INJ 10MG/ML (20 ML MDV) SQ ONE; -MIDAZOLAM 2 MG/2 ML VIAL IVP ONE; -MOUNJARO SQ SCH; -NITROGLYCERIN SL TABS 0.4 MG TAB SUBLINGUAL PRN; -NON FORMULARY DRUG (Potassium Chloride [K-Tab Er] 20 MEQ Tablet.Er) PO SCH; -NON FORMULARY DRUG (Zinc [Zinc] 50 MG Tablet) PO SCH; -POTASSIUM CHLORIDE ER 20 MEQ TAB.ER PO STA; -POTASSIUM CITRATE 5 MEQ TABLET.ER PO SCH; +PROPOFOL 10 MG/ML 20 ML VIAL IV ONE; -SODIUM CHLORIDE 0.9% 1,000 ML in EMPTY BAG 1 BAG IV SCH; -VERAPAMIL 2.5 MG/ML 2 ML AMP ONE; -VERAPAMIL SYRINGE (5 MG/10 ML) INTRAARTER ONE; -atenoloL 25 MG TAB PO SCH; -fentaNYL (PF) 50 MCG/ML 2 ML AMP IVP ONE; -fentaNYL (PF) 50 MCG/ML 2 ML AMP ONE
[2024-12-09 08:08] VITALS: RESP 16; TEMP 95.7
[2024-12-09] MEDS: LACTATED RINGERS 1,000 ML IV ONE (08:11)
[2024-12-09 08:18] LABS: Glucose,Whole Blood 145 mg/dL (70-110)
--- NOTE | 2024-12-09 09:11 | P.PCN ---
Date of Procedure: 12/09/24 Procedure(s) Performed: BRIEF HISTORY: Patient is a 74-year-old pleasant white female scheduled for an elective colonoscopy as a part of screening for longstanding history of ulcerative colitis diagnosed 22 years ago. She is in clinical remission. PROCEDURE PERFORMED: Colonoscopy with biopsy. PREOPERATIVE DIAGNOSIS: Screening for longstanding history of ulcerative colitis. IV sedation per Anesthesia. PROCEDURE: After informed consent was obtained, the patient, was brought into the endoscopy unit. IV sedation was administered by Anesthesia under continuous monitoring. Digital rectal examination was normal. Initially the Olympus CF-160 flexible video colonoscope was then inserted in the rectum, gradually advanced into the cecum without any difficulty. Careful examination was performed as the scope was gradually being withdrawn. Ileocecal valve and the appendiceal orifice were visualized and appeared normal. Prep was excellent. Mucosa of the cecum, ascending colon, transverse colon, descending colon, sigmoid colon, and rectum appeared normal. Scattered sigmoid diverticulosis. Biopsies were done from cecum to rectum rule out dysplasia. Retroflexion was performed in the rectum and no lesions were seen. The patient tolerated the procedure well. IMPRESSION: Normal-appearing colon from rectum to cecum notes of colorectal neoplasia. Sigmoid diverticulosis. RECOMMENDATIONS: Findings of this examination were discussed with the patient as well as her family.. She was advised to follow-up with the biopsy results. If the biopsy reveals no dysplasia, recommended repeat colonoscopy in 3 years.
[2024-12-09 09:32] VITALS: BP 152/93; PULSE 63
== END ==
LOC: ORWHC2ENDO 07:34
PROVIDERS: ATTEND Internal Medicine Gastroenterology
DX: K57.30 Diverticulosis of large intestine without perforation or abscess without bleeding (principal); K51.90 Ulcerative colitis, unspecified, without complications; I12.9 Hypertensive chronic kidney disease with stage 1 through stage 4 chronic kidney disease, or unspecified chronic kidney disease; E11.22 Type 2 diabetes mellitus with diabetic chronic kidney disease; N18.30 Chronic kidney disease, stage 3 unspecified; E78.5 Hyperlipidemia, unspecified; G47.33 Obstructive sleep apnea (adult) (pediatric); E03.9 Hypothyroidism, unspecified; E11.40 Type 2 diabetes mellitus with diabetic neuropathy, unspecified; K21.9 Gastro-esophageal reflux disease without esophagitis; Z79.899 Other long term (current) drug therapy; Z88.7 Allergy status to serum and vaccine; Z88.8 Allergy status to other drugs, medicaments and biological substances; Z88.6 Allergy status to analgesic agent; Z99.89 Dependence on other enabling machines and devices
CPT/HCPCS: 45380; J2704; 88305

== ENCOUNTER 2025-01-19 17:33 | Emergency (ER) | payer MEDICARE ==
--- NOTE | 2025-01-19 18:28 | ED ---
SOB HPI - General Chief Complaint: Upper Respiratory Infection Stated Complaint: Blurry Vision, Cough, Sore Throat Time Seen by Provider: 01/19/25 18:05 Source: patient, RN notes reviewed, old records reviewed Mode of arrival: wheelchair Limitations: no limitations - History of Present Illness Initial Comments: This is a 74-year-old female this patient presents today for evaluation of known RSV increasing shortness of breath, no chest pain no fevers MD Complaint: shortness of breath, cough -: days(s) Severity: moderate Severity scale (1-10): 6 Consistency: constant, intermittent Improves With: nothing Worsens With: nothing Known History Of: COPD Context: recent URI, anxiety, recent illness Associated Symptoms: pain with inspiration - Related Data Home Medications Medication Instructions Recorded Confirmed Atorvastatin [Lipitor] 40 mg PO HS 08/15/18 12/09/24 atenoloL [Tenormin] 25 mg PO BID 08/15/18 12/09/24 Potassium Chloride [K-Tab ER] 40 meq PO HS 11/19/18 12/09/24 Acetaminophen with Codeine 1 tab PO DAILY PRN 01/06/22 12/09/24 [Tylenol w/codeine #3] Cholecalciferol [Vitamin D3 (25 50 mcg PO DAILY 01/06/22 12/09/24 Mcg = 1000 Iu)] Furosemide [Lasix] 40 mg PO BID 01/06/22 12/09/24 Zinc 50 mg PO DAILY 01/06/22 12/09/24 Aspirin [Adult Low Dose Aspirin EC] 81 mg PO DAILY 09/22/22 12/09/24 Clotrimazole Cream [Lotrimin Cream] 1 applic TOPICAL BID PRN 10/08/23 12/09/24 Levothyroxine Sodium [Synthroid] 125 mcg PO DAILY 10/08/23 12/09/24 Montelukast [Singulair] 10 mg PO DAILY 12/08/24 12/09/24 Omeprazole [PriLOSEC] 40 mg PO HS 12/08/24 12/09/24 Previous Rx's Medication Instructions Recorded Nitroglycerin Sl Tabs [Nitrostat] 0.4 mg SUBLINGUAL Q5M PRN 90 Days 10/09/23 #100 tab Benzonatate [Tessalon Perles] 100 mg PO TID PRN #30 capsule 01/19/25 Allergies Allergy/AdvReac Type Severity Reaction Status Date / Time ibuprofen [From Motrin] Allergy Rash/Hives Verified 01/19/25 17:45 NSAIDS (Non-Steroidal Allergy Rash/Hives Verified 01/19/25 17:45 Anti-Inflamma sulfamethoxazole Allergy Rash/Hives Verified 01/19/25 17:45 [From Bactrim] tetanus and diphtheria Allergy Rash/Hives Verified 01/19/25 17:45 toxoids trimethoprim [From Bactrim] Allergy Rash/Hives Verified 01/19/25 17:45 Review of Systems ROS Statement: Those systems with pertinent positive or pertinent negative responses have been documented in the HPI. ROS Other: All systems not noted in ROS Statement are negative. Past Medical History Past Medical History: Chest Pain / Angina, Diabetes Mellitus, Eye Disorder, GERD/Reflux, Hearing Disorder / Deafness, Hyperlipidemia, Hypertension, Osteoarthritis (OA), Renal Disease, Skin Disorder, Sleep Apnea/CPAP/BIPAP, Thyroid Disorder Additional Past Medical History / Comment(s): NIDDM type II, neuropathy bilateral feet, CKD stage II, UTIs, CHRONIC YEAST INFECTIONS, CHANDU with CPap, intermittent bilateral lower leg edema, ulcerative colitis, benign colon polyp, arthritis in multiple joints/chronic pain, unsteady gait, R rotator cuff repair/physical therapy increased ROM, [id number] bilaterally, glaucoma bilateral eyes. recent bronchitis-just finished A/B History of Any Multi-Drug Resistant Organisms: None Reported Past Surgical History: Cholecystectomy, Heart Catheterization, Orthopedic Surgery Additional Past Surgical History / Comment(s): R wrist ganglion cystectomy x2, L shoulder bone removed, colonoscopies Past Anesthesia/Blood Transfusion Reactions: No Reported Reaction, Motion Sickness Past Psychological History: No Psychological Hx Reported Smoking Status: Never smoker - Past Family History Mother Family Medical History: Renal Disease Additional Family Medical History / Comment(s): Mother of renal failure. Father Family Medical History: Myocardial Infarction (MN) Additional Family Medical History / Comment(s): Father of a MN at the age of 75 yrs. He had his first MN about age 65yrs. General Exam Limitations: no limitations General appearance: alert, in no apparent distress Head exam: Present: atraumatic, normocephalic, normal inspection Eye exam: Present: normal appearance, PERRL, EOMI. Absent: scleral icterus, conjunctival injection, periorbital swelling ENT exam: Present: normal exam, mucous membranes moist Neck exam: Present: normal inspection. Absent: tenderness, meningismus, lymphadenopathy Respiratory exam: Present: normal lung sounds bilaterally. Absent: respiratory distress, wheezes, rales, rhonchi, stridor Cardiovascular Exam: Present: regular rate, normal rhythm, normal heart sounds. Absent: systolic murmur, diastolic murmur, rubs, gallop, clicks GI/Abdominal exam: Present: soft, normal bowel sounds. Absent: distended, tenderness, guarding, rebound, rigid Extremities exam: Present: normal inspection, full ROM, normal capillary refill. Absent: tenderness, pedal edema, joint swelling, calf tenderness Back exam: Present: normal inspection Neurological exam: Present: alert, oriented X3, CN II-XII intact Psychiatric exam: Present: normal affect, normal mood Skin exam: Present: warm, dry, intact, normal color. Absent: rash Course Vital Signs 01/19/25 01/19/25 01/19/25 17:41 18:35 18:49 Temperature 98.2 F Pulse Rate 102 H 96 Respiratory 18 18 18 Rate Blood Pressure 130/76 142/77 O2 Sat by Pulse 94 L 92 L Oximetry 01/19/25 01/19/25 01/19/25 20:13 21:08 21:19 Temperature Pulse Rate 93 94 91 Respiratory 18 Rate Blood Pressure 151/82 O2 Sat by Pulse 96 Oximetry 01/19/25 21:34 Temperature Pulse Rate 91 Respiratory 19 Rate Blood Pressure 144/87 O2 Sat by Pulse 97 Oximetry - Reevaluation(s) Reevaluation #1: 01/19/25 20:26 Medical records reviewed Reevaluation #4: Was pt. sent in by a medical professional or institution (, PA, MAP EDITOR, urgent care, hospital, or intermediate...) When possible be specific @ -no Did you speak to anyone other than the patient for history (EMS, parent, family, police, friend...)? What history was obtained from this source @ -no Did you review nursing and triage notes (agree or disagree)? Why? @ -agree Are old charts reviewed (outside hosp., previous admission, EMS record, old EKG, old radiological studies, urgent care reports/EKG's, intermediate records)? Report findings @ -yes Differential Diagnosis (chest pain, altered mental status, abdominal pain women, abdominal pain men, vaginal bleeding, weakness, fever, dyspnea, syncope, headache, dizziness, GI bleed, back pain, seizure, CVA, palpatations, mental health, musculoskeletal)? @ -prior EKG interpreted by me (3pts min.). @ -yes X-rays interpreted by me (1pt min.). @ -yes negative for acute disease CT interpreted by me (1pt min.). @ -no U/S interpreted by me (1pt. min.). @ -no What testing was considered but not performed or refused? (CT, X-rays, U/S, labs)? Why? @ -none What meds were considered but not given or refused? Why? @ -none Did you discuss the management of the patient with other professionals (professionals i.e. , PA, MAP EDITOR, lab, RT, psych nurse, social work associate, fishing instructor, teacher, boating safety officer, manager case)? Give summary @ -no Was smoking cessation discussed for >3mins.? @ -no Was critical care preformed (if so, how long)? @ -no Were there social determinants of health that impacted care today? How? (Homelessness, low income, unemployed, alcoholism, drug addiction, transportation, low edu. Level, literacy, decrease access to med. care, group home, rehab)? @ -none Was there de-escalation of care discussed even if they declined (Discuss DNR or withdrawal of care, Hospice)? DNR status @ -no What co-morbidities impacted this encounter? (DM, HTN, Smoking, COPD, CAD, Cancer, CVA, ARF, Chemo, Hep., AIDS, mental health diagnosis, sleep apnea, morbid obesity)? @ -none Was patient admitted / discharged? Hospital course, mention meds given and route, prescriptions, significant lab abnormalities, going to OR and other pertinent info. @ - Undiagnosed new problem with uncertain prognosis? @ -no Drug Therapy requiring intensive monitoring for toxicity (Heparin, Nitro, Insulin, Cardizem)? @ -no Were any procedures done? @ -no Diagnosis/symptom? @ - Acute, or Chronic, or Acute on Chronic? @ -Acute Uncomplicated (without systemic symptoms) or Complicated (systemic symptoms)? @ -Complicated Side effects of treatment? @ -no Exacerbation, Progression, or Severe Exacerbation? @ -exacerbation Poses a threat to life or bodily function? How? (Chest pain, USA, MN, pneumonia, PE, COPD, DKA, ARF, appy, cholecystitis, CVA, Diverticulitis, Homicidal, Suicidal, threat to staff... and all critical care pts) @ -yes Reevaluation #5: Differential Dyspnea: Coronary syndrome, arrhythmia, tamponade, asthma, COPD, pulmonary embolism, pneumonia, pneumothorax, pulmonary effusion, anaphylaxis, diabetic ketoacidosis, flailed chest, pulmonary contusion, diaphragmatic rupture, anemia, baylee romuscular, this is not meant to be an all-inclusive list. Medical Decision Making - Lab Data Result diagrams: 01/19/25 18:27 01/19/25 18:27 Lab Results 01/19/25 01/19/25 01/19/25 Range/Units 18:27 18:27 18:27 WBC 6.87 (4.50-10.00) 10*3/uL RBC 4.82 (4.10-5.20) 10*6/uL Hgb 14.2 (12.0-15.0) g/dL Hct 42.0 (37.2-46.3) % MCV 87.1 (80.0-97.0) fL MCH 29.5 (27.0-32.0) pg MCHC 33.8 (32.0-37.0) g/dL Plt Count 261 (140-440) 10*3/uL MPV 9.7 (9.5-12.2) fL Immature Gran % (Auto) 0.3 % Neutrophils % 58.2 % Lymphocytes % 26.9 % Monocytes % 13.1 % Eosinophils % 0.9 % Basophils % 0.6 % Immature Gran # 0.02 (0.00-0.04) 10*3/uL Neutrophils # 4.00 (1.80-7.70) 10*3/uL Lymphocytes # 1.85 (0.90-5.00) 10*3/uL Monocytes # 0.90 (0.20-1.00) 10*3/uL Eosinophils # 0.06 (0.04-0.35) 10*3/uL Basophils # 0.04 (0.00-0.10) 10*3/uL PT 10.7 (10.0-12.5) sec INR 1.0 (<1.2) APTT 24.3 (22.0-30.0) sec Sodium 137 (137-145) mmol/L Potassium 3.3 L (3.5-5.1) mmol/L Chloride 104 (98-107) mmol/L Carbon Dioxide 22 (22-30) mmol/L Anion Gap 11 mmol/L BUN 12 (7-17) mg/dL Creatinine 0.85 (0.52-1.04) mg/dL Est GFR (CKD-EPI)AfAm 77 (>60 ml/min/1.73 sqM) Est GFR (CKD-EPI)NonAf 67 (>60 ml/min/1.73 sqM) Glucose 168 H (74-99) mg/dL Plasma Lactic Acid Sky (0.7-2.0) mmol/L Calcium 9.2 (8.4-10.2) mg/dL Total Bilirubin 1.0 (0.2-1.3) mg/dL AST 30 (14-36) U/L ALT 21 (4-34) U/L Alkaline Phosphatase 119 (38-126) U/L Troponin I (0.000-0.034) ng/mL NT-Pro-B Natriuret Pep 159 pg/mL Total Protein 6.6 (6.3-8.2) g/dL Albumin 3.8 (3.5-5.0) g/dL 01/19/25 01/19/25 Range/Units 18:27 18:27 WBC (4.50-10.00) 10*3/uL RBC (4.10-5.20) 10*6/uL Hgb (12.0-15.0) g/dL Hct (37.2-46.3) % MCV (80.0-97.0) fL MCH (27.0-32.0) pg MCHC (32.0-37.0) g/dL Plt Count (140-440) 10*3/uL MPV (9.5-12.2) fL Immature Gran % (Auto) % Neutrophils % % Lymphocytes % % Monocytes % % Eosinophils % % Basophils % % Immature Gran # (0.00-0.04) 10*3/uL Neutrophils # (1.80-7.70) 10*3/uL Lymphocytes # (0.90-5.00) 10*3/uL Monocytes # (0.20-1.00) 10*3/uL Eosinophils # (0.04-0.35) 10*3/uL Basophils # (0.00-0.10) 10*3/uL PT (10.0-12.5) sec INR (<1.2) APTT (22.0-30.0) sec Sodium (137-145) mmol/L Potassium (3.5-5.1) mmol/L Chloride (98-107) mmol/L Carbon Dioxide (22-30) mmol/L Anion Gap mmol/L BUN (7-17) mg/dL Creatinine (0.52-1.04) mg/dL Est GFR (CKD-EPI)AfAm (>60 ml/min/1.73 sqM) Est GFR (CKD-EPI)NonAf (>60 ml/min/1.73 sqM) Glucose (74-99) mg/dL Plasma Lactic Acid Sky 1.6 (0.7-2.0) mmol/L Calcium (8.4-10.2) mg/dL Total Bilirubin (0.2-1.3) mg/dL AST (14-36) U/L ALT (4-34) U/L Alkaline Phosphatase (38-126) U/L Troponin I <0.012 (0.000-0.034) ng/mL NT-Pro-B Natriuret Pep pg/mL Total Protein (6.3-8.2) g/dL Albumin (3.5-5.0) g/dL - EKG Data -: EKG Interpreted by Me (EKG is sinus 96 NE 154 QRS 129 QTc 429) Disposition Clinical Impression: Acute upper respiratory infection Disposition: HOME SELF-CARE Condition: Good Instructions (If sedation given, give patient instructions): Upper Respiratory Infection (ED) Prescriptions: Benzonatate [Tessalon Perles] 100 mg PO TID PRN #30 capsule PRN Reason: Cough Is patient prescribed a controlled substance at d/c from ED?: No Referrals: Oswalod Marin MD [Primary Care Provider] - 1-2 days Time of Disposition: 22:00
[2025-01-19] MEDS: IPRATROPIUM-ALBUTEROL 3 ML NEB INHALATION STA ×2 (18:44→21:03)
[2025-01-19] MEDS: SODIUM CHLORIDE 0.9% 1,000 ML IV ONE (18:51)
[2025-01-19 19:01] LABS: Basophils # (A) 0.04 10*3/uL (0.00-0.10); Basophils % (A) 0.6 %; Eosinophils # (A) 0.06 10*3/uL (0.04-0.35); Eosinophils % (A) 0.9 %; HGB 14.2 g/dL (12.0-15.0); Lymphocytes # (A) 1.85 10*3/uL (0.90-5.00); Lymphocytes % (A) 26.9 %; MCH 29.5 pg (27.0-32.0); MCHC 33.8 g/dL (32.0-37.0); MCV 87.1 fL (80.0-97.0); Mean Platelet Volume 9.7 fL (9.5-12.2); Monocytes % (A) 13.1 %; Neutrophils % (A) 58.2 %; Platelet Count 261 10*3/uL (140-440); RBC 4.82 10*6/uL (4.10-5.20); RDW 14.4 % (11.5-14.5); WBC 6.87 10*3/uL (4.50-10.00)
[2025-01-19 19:11] LABS: ALT 21 U/L (4-34); AST 30 U/L (14-36); African American GFR (CKD) 77 (>60 ml/min/1.73 sqM); Albumin 3.8 g/dL (3.5-5.0); Alkaline Phosphatase 119 U/L (38-126); Anion Gap 11 mmol/L; Blood Urea Nitrogen 12 mg/dL (7-17); Calcium 9.2 mg/dL (8.4-10.2); Carbon Dioxide 22 mmol/L (22-30); Chloride 104 mmol/L (98-107); Glucose 168 mg/dL (74-99); Non-African American GFR(CKD) 67 (>60 ml/min/1.73 sqM); Potassium 3.3 mmol/L (3.5-5.1); Sodium 137 mmol/L (137-145); Total Protein 6.6 g/dL (6.3-8.2)
[2025-01-19 19:20] LABS: NT-Pro-B-Type Natriuretic Pept 159 pg/mL
[2025-01-19 19:27] LABS: Partial Thromboplastin Time 24.3 sec (22.0-30.0); Prothrombin Time 10.7 sec (10.0-12.5)
[2025-01-19] MEDS: POTASSIUM CHLORIDE ER 20 MEQ TAB.ER PO STA (20:00)
[2025-01-19] MEDS: POTASSIUM BICARBONATE/CIT AC 20 MEQ TABLET.EFF PO ONE (20:13)
--- NOTE | 2025-01-19 20:30 | XR ---
EXAMINATION TYPE: XR chest 2V DATE OF EXAM: 01/19/2025 7:46 PM COMPARISON: Chest radiographs from 11/03/2024. CLINICAL INDICATION: Female, 74 years old with history of difficulty breathing; TECHNIQUE: XR chest 2V Frontal and lateral views of the chest. FINDINGS: Lungs/Pleura: Low lung volumes are present. There is no evidence of pleural effusion, focal consolida tion, or pneumothorax. Pulmonary vascularity: Unremarkable. Heart/mediastinum: Cardiomediastinal silhouette is unremarkable. Musculoskeletal: No acute osseous pathology. IMPRESSION: Low lung volumes with a generalized hazy appearance which could represent atelectasis versus pulmonar y edema correlate with serum BNP. [facility], , 01/19/2025 8:27 PM
[2025-01-19] MEDS: BENZONATATE 100 MG CAP PO STA ×2 (21:04→22:10)
[2025-01-19] MEDS: DEXAMETHASONE SOD PHOSPHATE 10 MG/ML 1 ML VIAL IVP STA (21:05)
[2025-01-19] MEDS: MORPHINE SULFATE 2 MG/ML SYRINGE IVP STA (21:05)
[2025-01-19] MEDS: IPRATROPIUM 0.5 MG/2.5 ML NEBU INHALATION STA (21:08)
[2025-01-19] MEDS: ACET/COD 300 MG/30 MG STARTER PACK 6 TAB BTL PO STA (22:10)
[2025-01-19 22:19] VITALS: BP 140/81; PULSE 89; RESP 16; TEMP 97.9
== END 2025-01-19 22:19 | disposition home or self-care (01) ==
LOC: EC 17:33
DX: J06.9 Acute upper respiratory infection, unspecified (principal); Z88.6 Allergy status to analgesic agent; Z88.2 Allergy status to sulfonamides; Z88.7 Allergy status to serum and vaccine; Z88.1 Allergy status to other antibiotic agents
CPT/HCPCS: 36415; 94640; 93005; 83880; 80053; 83605; 84484; 85025; 85610; 85730; 71046; 99285; 96374; 96375; J1100; J2270

== ENCOUNTER → 2025-01-19 | Outpatient (CLI) | payer MEDICARE ==
[2025-01-19 11:13] LABS: Influenza A Not Detected (Not Detectd); Influenza B Not Detected (Not Detectd); RSV Detected (Not Detectd)
== END | disposition home or self-care (01) ==
LOC: LABWHC1 09:47
PROVIDERS: ATTEND Family Medicine
DX: B89 Unspecified parasitic disease (principal)
CPT/HCPCS: 87636